=== PATIENT | female | born 1970 | race Caucasian/White ===

== ENCOUNTER 2020-02-24 19:03 | Emergency (ER) | payer SELFPAY ==
[2020-02-24 19:08] VITALS: BP 150/83; PULSE 86; RESP 18; TEMP 36.9; O2SAT 95; BMI 44.6
--- NOTE | 2020-02-24 19:34 | W.ED.BACK ---
HPI - Back Pain/Injury General: Chief Complaint: Back Pain/Injury Stated Complaint: fall Time Seen by Provider: 02/24/20 19:21 Source: patient Mode of arrival: ambulatory Limitations: no limitations History of Present Illness: HPI Narrative: Patient is a 49-year-old female who presents to the ER today with complaints of worsening lower back pain. Patient tells me she has had chronic lower back pain over the past 4 months. She has been seen by her PCP Dai Stark PA-C. Patient tells me over the past 4 days she has had even worse lower back pain. She does chronically have radiation down into her right lower extremity that she states starts in her right back and radiates down the posterior aspect of her right leg. She tells me she does have chronic tingling and numbness to the leg. Patient states over the past 4 days she has had trouble with ambulation due to pain. She denies saddle anesthesia, urinary retention or bowel incontinence. Patient has been treating back pain with Flexeril and gabapentin without relief. MD elicited complaint: back pain Onset (ago): month(s) Timing: constant Severity: severe Similar Symptoms Previously: Yes Location: lumbar spine Radiation: right upper leg and right leg below the knee Exacerbating factors: movement and walking Relieving factors: none Associated symptoms: Reports tingling/numbness/burning (R LE); Deny abdominal pain, chills, dysuria, fatigue, fever(s) or urinary urgency Review of Systems General: Reports: 10 or more systems reviewed and unremarkable except in HPI and below Const: Denies: fever(s), chills, fatigue or malaise Card: Denies: chest pain Resp: Denies: dyspnea GI: Denies: abdominal pain : Denies: flank pain, difficulty voiding, dysuria, urinary frequency, urinary urgency, urinary hesitancy, dribbling or urinary incontinence Musc: Reports: back pain; Denies: neck pain, extremity swelling, joint pain, joint swelling, joint redness or joint warmth Neuro: Reports: numbness in extremities (R LE), weakness in extremities (R LE) and sensory changes; Denies: headache(s) PFSH ED PFSH: Social History Smoking and tobacco status: current every day smoker Female Reproductive History: Date of last menstrual period: 01/02/20 Physical Exam Const: COMMON NORMALS: no acute distress, patient oriented x3, no limitations and alert NUTRITIONAL APPEARANCE: obese morbidly obese ORIENTATION/CONSCIOUSNESS: Yes oriented to person, Yes oriented to place and Yes oriented to time HENMT: COMMON NORMALS: normocephalic and atraumatic HEAD & SCALP: normocephalic and atraumatic Resp: COMMON NORMALS: normal respiratory effort and clear to auscultation bilaterally AUSCULTATION: clear to auscultation bilaterally Cardio: COMMON NORMALS: regular rate and regular rhythm RATE: regular rate RHYTHM: regular rhythm : COMMON NORMALS: Yes no CVA tenderness BLADDER/KIDNEY EXAM: Yes no CVA tenderness Back/Pelvis: COMMON NORMALS: no CVA tenderness THORACIC SPINE/UPPER BACK: Yes normal to inspection, No thoracic spinal tenderness and No paraspinal muscle tenderness LUMBAR SPINE/LOWER BACK: Yes lumbar spinal tenderness (mid to lower L spine) and Yes paraspinal muscle tenderness (throughout/across lower back) SACROILIAC JOINTS: Yes SI joint(s) abnormal (TTP R SI) Extremity: COMMON NORMALS: normal to inspection and full ROM Neuro: COMMON NORMALS: patient oriented x3, moves all extremities and no sensory deficits noted SENSORIUM/ORIENTATION: Yes alert, Yes oriented to person, Yes oriented to place and Yes oriented to time GAIT: Yes Unable to assess gait MOTOR EXAM: Abnormal motor strength present (see below) OTHER: pt refused to move from her wheelchair stating she was more comfortable here so exam/strength testing was not ideal; she has decreased strength when compared to L of hip flexion and knee flexion/extension; normal pushes/pulls of feet; sensory does appear intact; DP/PT pulses and cap refill normal Course ED course: given pts sensory complaints, new motor complaints, difficulty with ambulation, and CT findings of two lumbar masses she will most likely need to undergo MRI tonight; I have spoken to Dr. Masters who agrees Consultations: Consultation #1: Dr. Masters-recommends MRI w/ and w/o contrast; spoke with him again following findings and he will see patient in his office today Vital Signs: Vital signs: Vital Signs Temperature 98.4 F 02/24/20 19:08 Pulse Rate 99 02/25/20 00:01 Respiratory Rate 19 H 02/25/20 00:01 Blood Pressure 152/111 02/25/20 00:01 Pulse Oximetry 99 02/25/20 00:01 MDM - Back Pain/Injury Imaging Data^: CT lumbar: Radiologist's impression: [address] [place] [address] CT Scan Report Signed Patient: Selena Decker Unit #: [id number] : 1970 Age/Sex: 49 / F ADM Date: 02/24/20 Loc: ER Room/Bed: Attending Dr: Ordering Provider/Ordering MD: Maddison Ramirez Date of Service: 02/24/20 Procedure(s): CT lumbar spine wo con* [id number] Accession Number(s): [id number] Report Number: [id number] PROCEDURE INFORMATION: Exam: CT Lumbar Spine Without Contrast Exam date and time: 02/24/2020 7:35 PM Age: 49 years old Clinical indication: Low back pain; Additional info: Back pain; R le weakness/numbness TECHNIQUE: Imaging protocol: Computed tomography images of the lumbar spine without contrast. Radiation optimization: All CT scans at this facility use at least one of these dose optimization techniques: automated exposure control; mA and/or kV adjustment per patient size (includes targeted exams where dose is matched to clinical indication); or iterative reconstruction. COMPARISON: No relevant prior studies available. RADIATION DOSE METRICS: Total DLP (mGy-cm): 2641.76 FINDINGS: Vertebrae: No acute fracture. Normal alignment. L1-L2: No significant disc protrusion. No severe spinal canal stenosis. No significant neural foraminal narrowing. L2-L3: No significant disc protrusion. No spinal canal stenosis. No neural foraminal narrowing. L3-L4: There is mild decreased height of the L3-L4 disc with degenerative hypertrophic changes in the facet joints bilaterally and mild hypertrophy of ligamentum flavum causing moderate central canal stenosis narrowing the sagittal diameter of the canal to approximately 8 mm. L4-L5: There is decreased height of the L4-L5 disc with mild diffuse posterior bulging of the disc and degenerative changes in the facet joints bilaterally as well as hypertrophy of ligamentum flavum. There is a 7 mm sized calcified mass in the right side of the spinal canal adjacent to the right facet joint at the L5 level, below the L4-L5 disc, possibly a calcified ganglion cyst or perhaps sequestered disc fragment. Just below this there is a 7 x 16 mm mass in the right side of the spinal canal of similar appearance and differential. This causes severe stenosis at this level and displaces the thecal sac towards the left. Further evaluation with MRI is suggested. L5-S1: There is decreased height of the L5-S1 disc without focal disc herniation or stenosis. There is mild foraminal narrowing bilaterally. Soft tissues: Unremarkable. CT/CT lumbar spine wo con* [id number] IMPRESSION: 1. Moderate spinal stenosis at L3-L4. 2. Intraspinal mass at the L5 level, possibly calcified ganglion cyst or sequestered disc fragment. Further evaluation with MRI is suggested. Radiation Dose CTDIVOL = (mGy): DLP = 2641.76 (mGy-cm) Dictated By: Clovis Guillen Signed By: Clovis Guillen Signed Date/Time: 02/24/202020 DD/ 18 MRI lumbar spine w/ and w/o: Radiologist's impression: [place] [address] Magnetic Resonance Report Signed Patient: Selena Decker Unit #: [id number] : 1970 Age/Sex: 49 / F ADM Date: 02/24/20 Loc: ER Room/Bed: Attending Dr: Ordering Provider/Ordering MD: Maddison Ramirez Date of Service: 02/24/20 Procedure(s): MR lumbar spine wo/w con [id number] Accession Number(s): [id number] Report Number: [id number] PROCEDURE INFORMATION: Exam: MR Lumbar Spine Without and With Contrast. Exam date and time: 02/24/2020 10:11 PM Age: 49 years old Clinical indication: Low back pain; Additional info: Lumbar mass TECHNIQUE: Imaging protocol: Multiplanar magnetic resonance images of the lumbar spine without and with intravenous contrast. Contrast material: PROHANCE; Contrast volume: 17 ml; Contrast route: INTRAVENOUS (IV); COMPARISON: CT lumbar spine wo con* [id number] 02/24/2020 7:37 PM FINDINGS: Vertebrae: Unremarkable. Spinal cord: Normal signal. No cord compression. L1-L2: No significant disc disease. No significant spinal canal stenosis. No neural foraminal stenosis. L2-L3: There is some degenerative change in the facet joints bilaterally with medial spur formation but no significant central canal stenosis. There is no disc herniation. L3-L4: There is mild diffuse posterior bulging of the disc. There is hypertrophy of ligamentum flavum and medial spurring from the facet joints bilaterally causing mild central canal stenosis narrowing the sagittal diameter of the canal to approximately 9 mm. No focal disc herniation is identified. L4-L5: There is mild decrease in signal in the disc. There is mild posterior bulging of the disc. There is severe degenerative changes in the facet joints bilaterally with hypertrophy of ligamentum flavum and medial spur formation which causes severe stenosis at the disc level effacing the CSF space and narrowing the transverse diameter of the sac to approximately 7 mm. There is a large synovial cyst below the disc level occupying the right side of the canal at the L5 level. This cyst measures approximately 8 x 17 mm and displaces the thecal sac towards the left and causes severe stenosis. Postcontrast images show some surrounding enhancement. L5-S1: No significant disc disease. No significant spinal canal stenosis. No neural foraminal stenosis. Soft tissues: Unremarkable. MR/MR lumbar spine wo/w con [id number] IMPRESSION: There is a large synovial cyst on the right side at L4-L5 causing severe spinal stenosis. Surgical consultation is suggested. Dictated By: Clovis Guillen Signed By: Clovis Guillen Signed Date/Time: 02/24/202356 DD/ 55 Discharge Plan Discharge Patient Disposition: Home, Self-Care Clinical Impression: Synovial cyst of lumbar spine Condition: Stable Prescriptions: New tramadol 50 mg tablet 50 mg PO Q6H PRN (Reason: pain) Qty: 14 RF: 0 No Action cyclobenzaprine 10 mg tablet 10 mg PO TID PRN (Reason: Muscle Spasm) RF: 0 Aspir-81 81 mg Tablet,Delayed Release (Dr/Ec) 81 mg PO DAILY RF: 0 isosorbide mononitrate 60 mg tablet extended release 24 hr 60 mg PO DAILY RF: 0 propranolol 10 mg tablet 10 mg PO BID RF: 0 cyanocobalamin (vitamin B-12) 1,000 mcg/mL solution 1,000 mcg IM Q30D RF: 0 Aleve 220 mg Tablet 880 mg PO PRN RF: 0 nitroglycerin 0.4 mg tablet, sublingual 0.4 mg sublingual PRN RF: 0 gabapentin 300 mg capsule 300 mg PO TID RF: 0 lisinopril-hydrochlorothiazide 20-25 mg tablet 1 tab PO DAILY RF: 0 ProAir HFA 90 mcg/actuation HFA aerosol inhaler 2 puff INHALATION Q4H PRN (Reason: Shortness Of Breath) RF: 0 Claritin 10 mg Tablet 10 mg PO DAILY RF: 0 Nexium 24HR 20 mg Capsule,Delayed Release(Dr/Ec) 20 mg PO DAILY PRN (Reason: unknown) RF: 0 CoQ-10 1 tab PO DAILY RF: 0 Discharge Orders: Discharge Order (Routine); Ordered 02/25/20 Ordered By: Maddison Ramirez Referrals: Tank Masters MD [Physician] - Dai Stark PA [Primary Care Provider] - Activity Restrictions/Additional Instructions: CONTACT DR. MASTERS'S OFFICE EARLY THIS MORNING. HE HAS REQUESTED THAT THEY SEE YOU TODAY. IF YOU CANNOT GET AN APPOINTMENT BY CALLING THEN CONTACT CASE MANAGEMENT HERE IN THE ED AND THEY CAN ASSIST. Coding Level of Care Code ED Embryology Teacher for Chg Fwd Exam Comprehensive
[2020-02-24] MEDS: dexamethasone 10 mg/mL INJ IM (19:51)
[2020-02-24] MEDS: ketorolac 60 mg/2 mL INJ IM (19:53)
[2020-02-24] MEDS: orphenadrine 30 mg/mL Inj 2 mL 60 MG IM (19:53)
[2020-02-24 20:28] VITALS: BP 159/100; PULSE 82; RESP 18
--- NOTE | 2020-02-24 21:41 | MRR_ITS ---
PROCEDURE INFORMATION: Exam: MR Lumbar Spine Without and With Contrast. Exam date and time: 02/24/2020 10:11 PM Age: 49 years old Clinical indication: Low back pain; Additional info: Lumbar mass TECHNIQUE: Imaging protocol: Multiplanar magnetic resonance images of the lumbar spine without and with intravenous contrast. Contrast material: PROHANCE; Contrast volume: 17 ml; Contrast route: INTRAVENOUS (IV); COMPARISON: CT lumbar spine wo con* [id number] 02/24/2020 7:37 PM FINDINGS: Vertebrae: Unremarkable. Spinal cord: Normal signal. No cord compression. L1-L2: No significant disc disease. No significant spinal canal stenosis. No neural foraminal stenosis. L2-L3: There is some degenerative change in the facet joints bilaterally with medial spur formation but no significant central canal stenosis. There is no disc herniation. L3-L4: There is mild diffuse posterior bulging of the disc. There is hypertrophy of ligamentum flavum and medial spurring from the facet joints bilaterally causing mild central canal stenosis narrowing the sagittal diameter of the canal to approximately 9 mm. No focal disc herniation is identified. L4-L5: There is mild decrease in signal in the disc. There is mild posterior bulging of the disc. There is severe degenerative changes in the facet joints bilaterally with hypertrophy of ligamentum flavum and medial spur formation which causes severe stenosis at the disc level effacing the CSF space and narrowing the transverse diameter of the sac to approximately 7 mm. There is a large synovial cyst below the disc level occupying the right side of the canal at the L5 level. This cyst measures approximately 8 x 17 mm and displaces the thecal sac towards the left and causes severe stenosis. Postcontrast images show some surrounding enhancement. L5-S1: No significant disc disease. No significant spinal canal stenosis. No neural foraminal stenosis. Soft tissues: Unremarkable. MR/MR lumbar spine wo/w con [id number] IMPRESSION: There is a large synovial cyst on the right side at L4-L5 causing severe spinal stenosis. Surgical consultation is suggested.
[2020-02-24] MEDS: LORazepam 2 mg/mL INJ 1 mL IVP (23:28)
--- NOTE | 2020-02-24 23:29 | PC.NURSE ---
Pt. to MRI and back, via EMS, with this screenplay writer. Ativan IVP given at MRI prior to procedure. Pt, tolerated well.
[2020-02-25 00:01] VITALS: BP 152/111; PULSE 99; RESP 19; O2SAT 99
[2020-02-25] MEDS: TRAMadol 50 mg Tablet 100 MG PO (01:44)
[2020-02-25 01:45] VITALS: BP 138/74; PULSE 98; RESP 18; TEMP 37.1; O2SAT 98
--- NOTE | 2020-02-25 12:13 | DCPLANNER ---
manager neonatal had message to schedule a follow up appointment for patient with Dr. Beckett. manager neonatal called [facility], spoke with Titi, a follow up appointment is scheduled for February 25, 2020 at 3:30. manager neonatal was told that patient is aware of appointment.
--- NOTE | 2020-02-26 13:59 | DCPLANNER ---
Patient had an appointment scheduled for 02.25.[address] Dooley office. Patient did attend the appointment.
== END 2020-02-25 01:47 | disposition home or self-care (01) ==
PROVIDERS: Emergency Provider Physician Assistant; PCP Physician Assistant
DX: M71.38 Other bursal cyst, other site (principal); Z79.82 Long term (current) use of aspirin; F17.210 Nicotine dependence, cigarettes, uncomplicated
CPT/HCPCS: 12345; 72131; 72158; 96372; 96374; 96375; 99283; A9579; J1100; J1885; J2060; J2360

== ENCOUNTER 2020-09-07 16:48 | Inpatient (IN) | payer MEDICAID, SELFPAY ==
[2020-09-07 17:14] VITALS: BP 154/79; PULSE 89; RESP 18; TEMP 36.9; O2SAT 97; BMI 41.1
--- NOTE | 2020-09-07 17:51 | ED_ITS ---
HPI - Psych General: Chief Complaint: Psychiatric Symptoms Stated Complaint: AMS, SUICIDAL THOUGHTS Time Seen by Provider: 09/07/20 17:51 History of Present Illness: HPI Narrative: Patient comes in with history of bipolar and with deep depression over the last month. Patient says she has held a gun to her head multiple times this past month and that she had her daughter come pick her got up today from her because she is thought she for sure she is going to shoot herself. She went to [facility] here. MD complaint: suicidal ideation and feels depressed Onset (ago): month(s) Duration: changing over time History of same: Yes Relieving factors: none Exacerbating factors: none Associated psychiatric symptoms: depression, suicidal ideation and racing thoughts Associated symptoms: Reports depression and suicidal ideation Treatments prior to arrival: other (Was seen at [facility]) If self harm: admits thoughts of self harm and has plan Review of Systems Const: Denies: fever(s), chills or body aches Eyes: Denies: change in vision or blurry vision ENMT: Denies: throat pain or nasal congestion Card: Denies: chest pain or dyspnea on exertion Resp: Denies: dyspnea, productive cough or non-productive cough GI: Denies: abdominal pain, nausea or vomiting Musc: Denies: extremity pain Skin/Breast: Denies: rash Neuro: Denies: headache(s) Psych: Reports: depression and suicidal ideation; Denies: anxiety Hilario/Lymph: Denies: easy bruising PFS ED PFSH: Medical History (Updated 03/04/20 @ 00:00 by ) Lumbar stenosis with neurogenic claudication Morbid obesity with BMI of 45.0-49.9, adult Spinal stenosis of lumbar region with radiculopathy Spondylolisthesis, lumbar region Synovial cyst of lumbar spine Surgical History History of cholecystectomy History of tubal ligation Family History Mother Diabetes Father Diabetes Denies family history of Dementia Cancer Social History (Updated 02/27/20 @ 09:15 by Emy Downs LPN) Smoking and tobacco status: current every day smoker Alcohol intake: never Housing: House service: No Current occupational status: employed 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 Physical Exam Const: COMMON NORMALS: no acute distress, average body habitus and patient oriented x3 HENMT: COMMON NORMALS: normocephalic HEAD & SCALP: normal to inspection and normocephalic FACE & SINUS: normal facial exam Eye: COMMON NORMALS: conjunctivae normal GENERAL EYE: appearance normal, both eyes and all related structures CONJUNCTIVA: Yes conjunctivae normal Neck/C-Spine: COMMON NORMALS: no JVD Chest: COMMONS NORMALS: normal inspection of the chest Resp: COMMON NORMALS: normal respiratory effort and clear to auscultation bilaterally AUSCULTATION: clear to auscultation bilaterally Cardio: COMMON NORMALS: no JVD, regular rate and regular rhythm RATE: regular rate RHYTHM: regular rhythm GI: COMMON NORMALS: Normal to inspection, nondistended, normoactive bowel sounds present Back/Pelvis: OTHER: Patient ambulates with walker ambulate slowly due to history of possible mass on her back. Extremity: COMMON NORMALS: normal to inspection and full ROM Neuro: COMMON NORMALS: patient oriented x3 Discharge Plan Discharge Prescriptions: No Action methylprednisolone [Medrol (Arnaldo)] 4 mg tablets,dose pack See Rx Instructions PO PER PKG DIR Qty: 21 RF: 0 cyclobenzaprine 10 mg tablet 10 mg PO TID PRN (Reason: Muscle Spasm) RF: 0 Aspir-81 81 mg Tablet,Delayed Release (Dr/Ec) 81 mg PO DAILY RF: 0 isosorbide mononitrate 60 mg tablet extended release 24 hr 60 mg PO DAILY RF: 0 propranolol 10 mg tablet 10 mg PO BID RF: 0 cyanocobalamin (vitamin B-12) 1,000 mcg/mL solution 1,000 mcg IM Q30D RF: 0 Aleve 220 mg Tablet 880 mg PO PRN RF: 0 nitroglycerin 0.4 mg tablet, sublingual 0.4 mg sublingual PRN RF: 0 gabapentin 300 mg capsule 300 mg PO TID RF: 0 lisinopril-hydrochlorothiazide 20-25 mg tablet 1 tab PO DAILY RF: 0 ProAir HFA 90 mcg/actuation HFA aerosol inhaler 2 puff INHALATION Q4H PRN (Reason: Shortness Of Breath) RF: 0 Claritin 10 mg Tablet 10 mg PO DAILY RF: 0 Nexium 24HR 20 mg Capsule,Delayed Release(Dr/Ec) 20 mg PO DAILY PRN (Reason: unknown) RF: 0 CoQ-10 1 tab PO DAILY RF: 0 tramadol 50 mg tablet 50 mg PO Q6H PRN (Reason: pain) Qty: 14 RF: 0 Coding Level of Care Code ED Nursing Program Manager for Alfredo Al
[2020-09-07 18:03] LABS: Add Urine Microscopic? NO
[2020-09-07 18:07] LABS: Basophils # 0.1 10^3/uL (0.0-0.1); Basophils % 0.5 %; Eosinophils # 0.2 10^3/uL (0.0-0.8); Eosinophils % 2.4 %; Hematocrit 43.2 % (37.0-47.0); Hemoglobin 14.2 g/dL (11.5-15.3); Lymphocytes % 31.1 %; Mean Corpuscular HGB Conc 32.9 g/dL (30.0-36.0); Mean Corpuscular Hemoglobin 29.2 pg (28.0-34.0); Mean Corpuscular Volume 88.7 fL (81-99); Monocytes # 0.6 10^3/uL (0.2-0.9); Monocytes % 6.1 %; Neutrophils # 5.82 10^3/uL (1.8-7.7); Neutrophils % 59.6 %; Nucleated Red Blood Cells % 0 %; Platelet Count 397 10^3/cmm (130-400); Red Blood Count 4.87 10^6/uL (4.1-5.3); White Blood Count 9.8 10^3/uL (4.0-10.0)
[2020-09-07 18:21] LABS: Bilirubin Urine Neg (Negative); Blood Urine Neg (Negative); Glucose Urine UA Norm (Normal); Ketones Urine Negative (Negative); Leukocyte Esterase Urine Negative (Negative); Nitrate Urine Negative (Negative); Protein Urine Neg (Negative); Specific Gravity, Urine 1.015 (1.005-1.030); Urine Appearance Clear (CLEAR); Urine Color Yellow (Yellow); Urobilinogen Urine Norm (Negative); pH Urine 5 (5-7)
[2020-09-07 18:27] LABS: Amphetamines Screen Urine Negative (Negative); Barbiturates Screen Urine Negative (Negative); Benzodiazepines Screen Urine Negative (Negative); Cocaine Screen Urine Negative (Negative); Opiate Screen Urine Negative (Negative); PCP Screen Urine Negative (Negative); THC Screen Urine Negative (Negative)
[2020-09-07 18:30] LABS: HCG Qualitative Urine. Negative (Negative)
[2020-09-07 18:43] LABS: Anion Gap 11.3 (5-19); Blood Urea Nitrogen 14 mg/dL (6-20); Calcium 8.6 mg/dL (8.5-10.5); Carbon Dioxide 28 mmol/L (22-29); Chloride 102 mmol/L (98-107); Glucose 125 mg/dL (65-115); Osmolality Calculated 288 mOsm/kg (285-295); Potassium 3.3 mmol/L (3.5-5.1); Salicylate 0.5 mg/dL (3-10); Sodium 138 mmol/L (136-145)
[2020-09-07 18:45] LABS: Acetaminophen < 5.0 ug/mL (10-30); Alcohol Level < 10 mg/dL (0-10)
[2020-09-07 19:23] VITALS: BP 134/82; PULSE 76; RESP 14; O2SAT 96
[2020-09-07] MEDS: hyDROXYzine 25 mg Capsule 50 MG PO (21:26)
[2020-09-07 22:00] VITALS: BP 151/87; PULSE 91; RESP 20; TEMP 36.9; O2SAT 94
[2020-09-07] MEDS: TRAMadol 50 mg Tablet PO (23:53)
[2020-09-07] MEDS: nicotine 2 mg Gum BUCCAL (23:53)
[2020-09-07] MEDS: gabapentin 300 mg Capsule PO (23:56)
[2020-09-07] MEDS: isosorbide mononitrate ER 60 mg Tablet PO (23:56)
[2020-09-07] MEDS: cyanocobalamin 1,000 mcg/mL SDV 1000 MCG IM (23:57)
[2020-09-08] MEDS: methocarbamol 750 mg Tablet PO ×4 (01:28→22:00)
[2020-09-08 06:00] VITALS: BP 128/72; PULSE 86; RESP 18; TEMP 36.9; O2SAT 96
[2020-09-08] MEDS: propranolol 20 mg Tablet 10 MG PO ×2 (07:56→17:18)
[2020-09-08] MEDS: hydroCHLOROthiazide 25 mg Tablet PO (07:56)
[2020-09-08] MEDS: loratadine 10 mg Tablet PO (07:56)
[2020-09-08] MEDS: gabapentin 300 mg Capsule PO ×3 (07:56→22:01)
[2020-09-08] MEDS: aspirin 81 mg EC Tablet PO (07:56)
[2020-09-08] MEDS: lisinopril 20 mg Tablet PO (07:56)
[2020-09-08] MEDS: nicotine 21 mg Patch 1 PATCH TRANSDERMA (08:00)
--- NOTE | 2020-09-08 10:07 | PC.RESP ---
Smoking Cessation information sent to patient.
[2020-09-08] MEDS: albuterol 8 gm MDI 2 PUFF INHALATION ×2 (13:51→21:45)
[2020-09-08 13:55] VITALS: PULSE 92; RESP 18; O2SAT 97
[2020-09-08 14:00] VITALS: BP 115/73; PULSE 80; RESP 20; TEMP 37.4; O2SAT 94
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
[2020-09-08 20:11] VITALS: BP 119/74; PULSE 78; RESP 17; TEMP 37.2; O2SAT 94
[2020-09-08 21:45] VITALS: PULSE 78; RESP 16; O2SAT 94
[2020-09-08] MEDS: hyDROXYzine 25 mg Capsule 50 MG PO (22:00)
[2020-09-08] MEDS: naproxen 500 mg Tablet PO (22:00)
[2020-09-08] MEDS: lamoTRIgine 25 mg Tablet PO (22:01)
[2020-09-08] MEDS: cyclobenzaprine 10 mg Tablet PO (22:01)
[2020-09-08] MEDS: TRAMadol 50 mg Tablet PO (22:01)
[2020-09-08] MEDS: isosorbide mononitrate ER 60 mg Tablet PO (22:06)
[2020-09-09] MEDS: nicotine 2 mg Gum BUCCAL ×3 (01:35→21:45)
--- NOTE | 2020-09-09 01:58 | PHA.FALL ---
A Pharmacy Consult Was Conducted For Selena Dceker Due To: Babin Fall Scale Risk Level: High Fall Risk On 09/08/20 20:00 And A Medication Fall Risk Score Greater Than 10. The Recommendations Are As Follows:My greatest concern for this patient is the combination of haldol, lamictal, and lisinopril. Each of these can cause orthostatic hypotension and it can be severe with lisinopril. This is not a recommendation to discontinue any of these drugs but rather to closely monitor. I would want to educate the patient as to being careful when arising from the seated position and especially when getting out of bed. It would be hayward to rise slowly, then sit on the edge of the bed for a short time, then carefully rise to the standing position. Thank you for the consult request, TEREZA Roberts, 09/09/2020.
--- NOTE | 2020-09-09 03:43 | PC.NURSE ---
2100 Rob patch removed
[2020-09-09 06:00] VITALS: BP 121/71; PULSE 66; RESP 17; TEMP 36.7; O2SAT 93
[2020-09-09] MEDS: propranolol 20 mg Tablet 10 MG PO ×2 (08:56→16:56)
[2020-09-09] MEDS: gabapentin 300 mg Capsule PO ×3 (08:57→21:44)
[2020-09-09] MEDS: hydroCHLOROthiazide 25 mg Tablet PO (08:57)
[2020-09-09] MEDS: methocarbamol 750 mg Tablet PO ×3 (08:57→21:45)
[2020-09-09] MEDS: lisinopril 20 mg Tablet PO (08:57)
[2020-09-09] MEDS: loratadine 10 mg Tablet PO (08:57)
[2020-09-09] MEDS: aspirin 81 mg EC Tablet PO (08:57)
[2020-09-09] MEDS: lamoTRIgine 25 mg Tablet PO (08:58)
[2020-09-09] MEDS: nicotine 21 mg Patch 1 PATCH TRANSDERMA (08:59)
[2020-09-09] MEDS: naproxen 500 mg Tablet PO ×2 (08:59→21:44)
[2020-09-09 14:00] VITALS: BP 127/86; PULSE 86; RESP 16; TEMP 37.1; O2SAT 94
--- NOTE | 2020-09-09 18:52 | P.PN_ITS ---
Mental Status Exam MSE Comments: This is an obese grooming and eye contact. No abnormal movements except for mild psychomotor retardation. Cooperative with exam in mild distress. Speech was more normal rate and volume. Mood described as a little better, affect less subdued. Thought process organized. Thought con tent: Patient denied any suicidal or homicidal ideations, there were no delusions reported or noted, she denied any auditory or visual hallucinations. Attention and concentration appeared intact and memory appeared mostly reliable but none were formally tested. She is alert and oriented x3. Insight and judgment are limited and impulse control is limited. Vitals/I&O/Wt Last Vital Signs Temp 98.1 F 09/09/20 20:08 Pulse 80 09/09/20 20:08 Resp 20 H 09/09/20 20:08 BP 133/90 09/09/20 20:08 Pulse Ox 99 09/09/20 20:08 Data NPU : 09/07/20 17:50 09/07/20 17:50 A&P Additional A&P Information (1) Spinal stenosis of lumbar region with radiculopathy: (2) Spondylolisthesis, lumbar region: (3) Instability of joint: (4) Morbid obesity with BMI of 45.0-49.9, adult: (5) Lumbar stenosis with neurogenic claudication: (6) Adjustment disorder with mixed disturbance of emotions and conduct: (7) Parent-child relational problem: (8) Mood disorder: (9) Depression: Additional A&P Information This is a 49-year-old white female with a long history of mental health, trauma and addiction with recent significant/social challenges as well as challenges to her recovery through her current living circumstances who presents open to medication changes. 1. Continue current medication. Start lexapro 10 mg po qam. 2. Continue every 15 minute checks for safety. 3. Encourage individual, group and milieu therapy. 4. Encourage sober living treatment after discharge at the highest level of care to which she is willing to commit. 5. Plan discharge to SOC tomorrow. Involuntary Hold Information 96 Hour Hold: 96 Hour Involuntary Admission: No Attestations NPU Medical Necessity Statement*: Inpatient hospitalization is medically necessary and the clinically improved intervention at this time. We will monitor medications and make changes as indicated. Likely length of stay 1-3 days. Coding Level of Care Code Acute Special Education Paraprofessional for Alfredo Al
[2020-09-09 19:32] VITALS: PULSE 82; RESP 16; O2SAT 96
[2020-09-09 20:08] VITALS: BP 133/90; PULSE 80; RESP 20; TEMP 36.7; O2SAT 99
[2020-09-09] MEDS: cyclobenzaprine 10 mg Tablet PO (21:43)
[2020-09-09] MEDS: isosorbide mononitrate ER 60 mg Tablet PO (21:45)
[2020-09-10 06:00] VITALS: BP 121/74; PULSE 87; RESP 18; TEMP 36.9; O2SAT 96
[2020-09-10] MEDS: nicotine 2 mg Gum BUCCAL ×3 (06:47→10:22)
[2020-09-10] MEDS: propranolol 20 mg Tablet 10 MG PO (07:55)
[2020-09-10] MEDS: loratadine 10 mg Tablet PO (07:55)
[2020-09-10] MEDS: aspirin 81 mg EC Tablet PO (07:55)
[2020-09-10] MEDS: hydroCHLOROthiazide 25 mg Tablet PO (07:56)
[2020-09-10] MEDS: naproxen 500 mg Tablet PO (07:56)
[2020-09-10] MEDS: gabapentin 300 mg Capsule PO (07:57)
[2020-09-10] MEDS: lisinopril 20 mg Tablet PO (07:57)
[2020-09-10] MEDS: methocarbamol 750 mg Tablet PO (07:58)
[2020-09-10] MEDS: lamoTRIgine 25 mg Tablet PO (07:58)
[2020-09-10] MEDS: escitalopram 10 mg Tablet PO (07:58)
[2020-09-10 09:44] VITALS: BP 121/74; PULSE 87; RESP 18; TEMP 36.9; O2SAT 96
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
== END 2020-09-10 11:56 | disposition home or self-care (01) | DRG 882 ==
LOC: ER 18:42 → NP 18:47
PROVIDERS: Nurse Practitioner Family; Admitting Provider Psychiatry & Neurology Psychiatry; Emergency Provider Nurse Practitioner Family; PCP Physician Assistant; Visit Provider Psychiatry & Neurology Psychiatry
DX: F43.25 Adjustment disorder with mixed disturbance of emotions and conduct (principal); R45.851 Suicidal ideations; Z68.42 Body mass index [BMI] 45.0-49.9, adult; F31.9 Bipolar disorder, unspecified; Z81.8 Family history of other mental and behavioral disorders; E66.01 Morbid (severe) obesity due to excess calories; M48.062 Spinal stenosis, lumbar region with neurogenic claudication; M54.16 Radiculopathy, lumbar region; F17.210 Nicotine dependence, cigarettes, uncomplicated; M53.2X9 Spinal instabilities, site unspecified; Z62.820 Parent-biological child conflict
CPT/HCPCS: 12345; 80048; 80306; 80307; 81003; 81025; 85025; 94640; 96372; 99284; J3420; J3535

== ENCOUNTER → 2020-09-16 09:06 | Outpatient (BNVA) | payer MEDICAID, SELFPAY | PROVIDERS: PCP Physician Assistant; Visit Provider Orthopaedic Surgery | DX: M48.062 Spinal stenosis, lumbar region with neurogenic claudication (principal) | CPT/HCPCS: 72114 ==

== ENCOUNTER 2020-09-24 13:06 | Outpatient (CLI) | payer MEDICAID, SELFPAY ==
--- NOTE | 2020-09-24 13:45 | MR_ITS ---
WS: [id number] MRI LUMBAR SPINE NONCONTRAST HISTORY: M48.062 - Spinal stenosis, lumbar region with neurogenic claudication COMPARISON: 02/24/2020 TECHNIQUE: Sagittal and axial multisequence imaging is submitted. Normal cervical lordosis. Contact on the ventral cervical cord at C6 may be due to retropulsion of ol d fracture. Mild increase in the lumbar lordosis. Less than 2 mm anterolisthesis of L4. Mild disc desiccation. No significant narrowing. Postoperative changes are noted in the soft tissues the L4-5 level. There is a fluid collection in the paraspinal soft tissues from L3 to S1 which is lik basil postoperative seroma. Conus terminates normally at L1. L1-L2: Mild bilateral foraminal narrowing. No central stenosis. L2-L3: Moderate facet and ligamentum flavum hypertrophy. There is mild bilateral foraminal narrowing. L3-L4: Moderate ligamentum flavum disease and facet arthritis. Encroaching into the thecal sac. There is at least moderate bilateral foraminal stenosis and mild central stenosis. L4-L5: Increase fluid in the facet joints bilaterally. Moderate ligamentum flavum hypertrophy and fac et arthritis. Previously described large facet joint cyst has been removed. Trefoil appearance of the thecal sac with mild clumping of the nerve roots. Mild to moderate bilateral foraminal stenosis. L5-S1: Mild annular disc bulging. Mild osteophytic ridging with moderate bilateral foraminal stenosis . Increase fluid in the facet joints. No retroperitoneal abnormality. MR/MR lumbar spine wo con* [id number] IMPRESSION: 1. Postoperative changes at the L4-5 level. Removal of the previously describe d complex facet joint cyst. 2. Mild central and moderate bilateral foraminal stenosis at L3-4 as described above. 3. Mild to moderate bilateral foraminal stenosis at the L4-5 level with arachn oiditis. 4. Increase fluid in the facet joints of L4-5 with mild widening. 5. Moderate bilateral foraminal stenosis at L5-S1. 6. Paraspinal postoperative seroma.
== END 2020-09-24 13:07 | disposition home or self-care (01) ==
LOC: RADSHAW 13:09
PROVIDERS: PCP Physician Assistant; Visit Provider Orthopaedic Surgery
DX: M48.062 Spinal stenosis, lumbar region with neurogenic claudication (principal); M48.07 Spinal stenosis, lumbosacral region
CPT/HCPCS: 72148

== ENCOUNTER → 2020-10-26 11:37 | Outpatient (BNVA) | payer MEDICAID, SELFPAY | PROVIDERS: PCP Physician Assistant; Visit Provider Orthopaedic Surgery | DX: Z20.822 Contact with and (suspected) exposure to COVID-19 (principal) | CPT/HCPCS: 87635 ==

== ENCOUNTER 2020-10-28 18:11 | Outpatient (CLI) | payer MEDICAID, SELFPAY ==
[2020-10-28 19:02] LABS: Basophils % 0.3 %; Eosinophils # 0.3 10^3/uL (0.0-0.8); Eosinophils % 2.9 %; Hematocrit 46.6 % (37.0-47.0); Hemoglobin 15.3 g/dL (11.5-15.3); Lymphocytes # 3.2 10^3/uL (0.8-4.8); Lymphocytes % 29.8 %; Mean Corpuscular HGB Conc 32.8 g/dL (30.0-36.0); Mean Corpuscular Hemoglobin 29.8 pg (28.0-34.0); Mean Corpuscular Volume 90.7 fL (81-99); Mean Platelet Volume 9.3 fL (7.4-10.4); Monocytes # 0.8 10^3/uL (0.2-0.9); Monocytes % 7.5 %; Neutrophils # 6.31 10^3/uL (1.8-7.7); Neutrophils % 59.2 %; Nucleated Red Blood Cells % 0 %; Platelet Count 388 10^3/cmm (130-400); Red Blood Count 5.14 10^6/uL (4.1-5.3); Red Cell Distribution Width 13.2 % (12.1-15.1); White Blood Count 10.7 10^3/uL (4.0-10.0)
[2020-10-28 19:36] LABS: Alanine Aminotransferase 15 U/L (0-33); Alkaline Phosphatase 101 IU/L (35-105); Anion Gap 14.9 (5-19); Aspartate Amino Transferase 15 U/L (0-32); Blood Urea Nitrogen 16 mg/dL (6-20); Calcium 9.4 mg/dL (8.5-10.5); Carbon Dioxide 29 mmol/L (22-29); Chloride 95 mmol/L (98-107); Globulin 3.7 g/dL (1.3-4.6); Glomerular Filtration Rate 47.4 mL/min (90-130); Glucose 87 mg/dL (65-115); Osmolality Calculated 283 mOsm/kg (285-295); Sodium 136 mmol/L (136-145); Thyroid Stimulating Hormone 1.76 uIU/mL (0.27-4.20); Total Bilirubin 0.4 mg/dL (0.15-1.2); Total Protein 7.7 g/dL (6.6-8.7)
[2020-10-28 19:48] LABS: Potassium 2.9 mmol/L (3.5-5.1)
[2020-10-28 20:02] LABS: Free T4 Free Thyroxine 1.39 ng/dL (0.82-1.77)
[2020-10-28 21:51] LABS: Estmated Average Glucose 105; Hemoglobin A1C 5.3 % (4.0-6.0)
== END 2020-10-28 18:12 | disposition home or self-care (01) ==
LOC: LAB 18:15
PROVIDERS: PCP Physician Assistant; Visit Provider General Practice
DX: I10 Essential (primary) hypertension (principal)
CPT/HCPCS: 80053; 83036; 84439; 84443; 85025

== ENCOUNTER 2020-11-01 15:43 | Observation (INO) | payer MEDICAID, SELFPAY ==
[2020-10-27 09:53] VITALS: BMI 39.9
--- NOTE | 2020-10-27 10:25 | ECG_ITS ---
[facility] Test Date: 2020-10-27 Pat Name: Selena Decker Department: Room: Gender: Female Vegetable Sorter: : 1970 Requested By: Stoney Nieto Order Number: [id number] Jarvis MD: JASMIN CROWELL Measurements Intervals [place] Rate: 87 P: 78 [place]: 142 QRS: 73 QRSD: 88 T: 56 QT: 374 QTc: 450 Interpretive Statements SINUS RHYTHM No previous ECG available for comparison Electronically Signed On 10-27-2020 20:08:55 ROOFER ASSISTANT by JASMIN CROWELL [id number]
--- NOTE | 2020-10-27 10:34 | ANES.PREANE2 ---
Pre-Anesthetic Assessment Pre-Anesthetic Assessment: Height/Weight: Height 1.65 m Weight 108.862 kg Preop Diagnosis: L4/5 spondylolisthesis Proposed Procedure: Operation Date: 11/01/20 08:45 Proposed Procedures p L4/5 [id number], [id number], 35239, 06165, 04143, 90184 M43.16(Not Applicable) - Warren H Helene, DO Was Beta Mame taken within 24 hours: N/A Social: Social History: Tobacco and No alcohol Exam: Pre-Anes Outpt Exam: alert, oriented x 3 and regular rate & rhythm Additional Exam Findings (including area of procedure): BBS decreased with rhonchi Airway: Submandibular: WNL Cervical ROM: WNL MP: 2 Dentition: Full Pulmonary: Pulmonary: COPD CV/HEM: CV/HEM: Angina (Stable), CAD and HTN Metabolic: Metabolic: Morbid obesity Musc/skel: Musc/skel: Lower Back Pain and OA/DJD Comments: Chronic pain Neuropsych: Neuropsych: Anxiety and Depression Anesthetic Plan: ASA status: 3 Anesthesia: General Risk of > 500 ml blood loss (7ml/kg in children): Yes, adequate IV access and fluids planned PFSH Anesthesia PFSH: Medical History Lumbar stenosis with neurogenic claudication Morbid obesity with BMI of 45.0-49.9, adult Spinal stenosis of lumbar region with radiculopathy Spondylolisthesis, lumbar region Synovial cyst of lumbar spine Surgical History History of cholecystectomy History of tubal ligation Family History Mother Diabetes Father Diabetes Denies family history of Dementia Cancer Social History Smoking and tobacco status: current every day smoker Alcohol intake: never Housing: House service: No Current occupational status: employed 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
[2020-11-01] VITALS (19 sets, daily range): BP systolic 131–170; BP diastolic 77–94; PULSE 66–106; RESP 16–24; TEMP 36.3–37; O2SAT 92–99
--- NOTE | 2020-11-01 06:56 | SC_ITS ---
Procedure Done: 1. L4/5 Interbody fusion with posterolateral fusion 2. Instrumentation L4/5 3. Cage at L4/5 4. Laminectomy L4 5. use of autograft from same incision 6. allograft 7. Bone marrow aspirate from right iliac crest through separate incision in the fascia Procedure: 1. L4/5 Interbody fusion with posterolateral fusion 2. Instrumentation L4/5 3. Cage at L4/5 4. Laminectomy L4 5. use of autograft from same incision 6. allograft 7. Bone marrow aspirate from right iliac crest through separate incision in the fascia 112.0 seconds of fluoroscopic guidance, for a cumulative dose of 127.11 mGy, was provided to Dr. Narayan by the radiology department. C-arm images of the lumbar spine were saved for the patient's permanent record. [facility]
[2020-11-01] MEDS: sodium chloride 0.9% 1,000 ML 30 ML IV (07:44)
--- NOTE | 2020-11-01 08:25 | P.ANESUD_ITS ---
Pre-Anesthetic Update Pre-Anesthetic Assessment: Date of Surgery/Procedure: 11/01/20 Preop [place] gnosis: L4/5 spondylolisthesis Proposed Procedure: Operation Date: 11/01/20 10:50 Proposed Procedures p L4/5 [id number], 47489, 31942, 88140, 56849 M43.16(Not Applicable) - Warren Narayan, DO Any changes to Pre-Anesthetic Assessment?: Yes Changes from Pre-Anesthetic Assessment: Patient's lung CTA Bilaterally, patient denotes that she no longer is coughing up any green sputum, no fevers, No N/V/D, no malaise/fatigue, marcelina thing is back to baseline, still has chronic baseline cough and hoarseness. States she asked for antibiotics prophylactically and has been taking them for approximately 4 days. Consistently taking albuterol and steroid. Patient given opportunity to postpone surgery until she completes full course of antibiotics for full pre-operative optimization. States she would like to proceed, because she is losing feeling in her legs. Given improvement in status and adherance to medication regimen and normal breath sounds, reasonable to proceed without completion of antibiotic regimen. Instructed patient that she need to complete the remainder of her antibiotics as scheduled post-operatively. Last Intake: Intake Last Liquid Date 10/31/20 Last Liquid Time 21:00 Last Solid Date 10/31/20 Last Solid Time 21:00 Vitals: Temperature 98.6 F 11/01/20 07:24 Pulse Rate 96 11/01/20 07:24 Respiratory Rate 18 11/01/20 07:24 Blood Pressure 166/94 11/01/20 07:24 Blood Pressure Katy n 118 11/01/20 07:24 Pulse Oximetry 97 11/01/20 07:24 Oxygen Delivery Me thod 11/01/20 07:42 Exam: Pre-Anes Outpt Exam: alert, oriented x 3, clear to auscultation bilaterally and regular rate & rhythm Cardiac Studies: No Data to Display
--- NOTE | 2020-11-01 10:21 | PM.HP ---
Providers/Chief Complaint Primary Care Provider: Dai Stark Chief Complaint: L4/5 [id number], [id number], [id number], [id number], [id number], [id number] History of Present Illness Selena Decker is a 49 year old female Details: New 49 year old female patient here for evaluation of her low back pain. Onset: [May 2020, patient states she rolled out of bed and had pain] Duration: [4 months] Characteristics: [Sharp, stabbing, burning] Severity: [moderate] Location: [low back, left posterior left leg] Radiating symptoms: [left posterior leg to the foot] Aggravating factors: [prolonged walking and standing, lifting, ] Alleviating factors: [bending over] Neuro deficits: numbness & tingling left foot, weakness to left lower extremity, incontinence of bladder, no saddle anesthesia. Prior tx: [Surgery on L4-L5 in February [address] Tilley] Review of Systems Narrative: Const: Denies: fever(s) or chills Card: Denies: chest pain or dyspnea on exertion Resp: Denies: dyspnea or productive cough GI: Denies: abdominal pain, nausea or vomiting : Denies: difficulty voiding Musc: Reports: back pain, extremity pain, extremity swelling and limited range of motion Skin/Breast: Denies: changes in skin color or dry skin Neuro: Reports: numbness in extremities and weakness in extremities Psych: Denies: anxiety Hilario/Lymph: Denies: easy bruising or easy bleeding Musc: Denies: joint warmth Medications/Allergies Home Medications Medication Instructions Recorded Confirmed Last Taken Type CoQ-10 1 tab PO DAILY 30 Days #30 tab 09/10/20 11/01/20 10/26/20 Rx albuterol sulfate [ProAir HFA] 2 puff INHALATION Q4H PRN 30 Days 09/10/20 11/01/20 11/01/20 06:30 Rx #1 unit aspirin 81 mg PO DAILY 30 Days #30 tab 09/10/20 11/01/20 10/26/20 Rx cyanocobalamin (vitamin B-12) 1,000 mcg IM Q30D 30 Days #1 ml 09/10/20 11/01/20 10/26/20 Rx cyclobenzaprine 10 mg PO TID PRN 30 Days #90 tab 09/10/20 11/01/20 10/26/20 Rx escitalopram oxalate 10 mg PO DAILY 30 Days #30 tab 09/10/20 11/01/20 10/26/20 Rx esomeprazole magnesium [Nexium 20 mg PO DAILY PRN 30 Days #30 cap 09/10/20 11/01/20 10/26/20 Rx 24HR] gabapentin 300 mg PO TID 30 Days #90 cap 09/10/20 11/01/20 10/26/20 Rx isosorbide mononitrate 60 mg PO DAILY 30 Days #30 tab 09/10/20 11/01/20 10/26/20 Rx lamotrigine [Lamictal] 100 mg PO DAILY #30 tab 09/10/20 11/01/20 10/26/20 Rx lisinopril-hydrochlorothiazide 1 tab PO DAILY 30 Days #30 tab 09/10/20 11/01/20 10/26/20 Rx loratadine [Claritin] 10 mg PO DAILY 30 Days #30 tab 09/10/20 11/01/20 10/26/20 Rx methocarbamol 750 mg PO TID 30 Days #90 tab 09/10/20 11/01/20 10/26/20 Rx naproxen 500 mg PO Q12H 30 Days #60 tab 09/10/20 11/01/20 10/26/20 Rx nitroglycerin 0.4 mg SUBLINGUAL PRN 30 Days #30 09/10/20 10/27/20 Unknown Rx tab propranolol 10 mg PO BID 30 Days #60 tab 09/10/20 11/01/20 10/26/20 Rx tramadol 50 mg PO Q6H PRN 7 Days #28 tab 09/10/20 11/01/20 10/26/20 Rx Allergies Allergy/AdvReac Type Severity Reaction Status Date / Time codeine Allergy ALGY-Anaphy Verified 11/01/20 07:11 laxis Opioids - Morphine Analogues Allergy ADR-Vomitin Verified 11/01/20 07:11 g pravastatin Allergy Unknown Verified 11/01/20 07:11 pseudoephedrine Allergy ALGY-Hives Verified 11/01/20 07:11 [From [facility]] Mtojwud-Pou-Hdm Reductase Allergy Unknown Verified 11/01/20 07:11 Inhibitor PFSH Acute PFSH: Medical History Lumbar stenosis with neurogenic claudication Morbid obesity with BMI of 45.0-49.9, adult Spinal stenosis of lumbar region with radiculopathy Spondylolisthesis, lumbar region Synovial cyst of lumbar spine Surgical History History of cholecystectomy History of tubal ligation Family History Mother Diabetes Father Diabetes Denies family history of Dementia Cancer Social History Smoking and tobacco status: current every day smoker Alcohol intake: never Housing: House service: No Current occupational status: employed 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 GENERAL: Patient in no acute distress. Well nourished. CARDIAC: Regular rate and rhythm. CHEST: Normal inspirator effort, normal respiratory rate. ABDOMEN: Soft and non-tender. SKIN: Clear, warm and intact. NEURO?PSYCH: The patient is alert and oriented to person, place and time. NEUROVASCULAR: Upper Extremity Sensory - SILT. Motor Strength: Shoulder abduction C5: 5/5; Wrist extension C6: 5/5; Elbow extension C7: 5/5; Hand Cert Occupational Therapy Asst C8: 5/5; Finger abduction T1: 5/5. Radial/ Ulnar/ Median in intact Lower Extremity Sensory - SILT. Motor Strength: Hip flexion L2/3; Ant/inner thigh: 5/5; Hip adduction L2/3: 5/5; Knee extension L4 Lat thigh: 5/5; Toe dorsiflexion L5: 5/5; Ankle dorsiflexion L5/ S1: 5/5; Plantar flexion S1: 5/5. DTR: Triceps 2+; Brachioradialis 2+; Patellar 2+; Achilles 2+. MUSCULOSKELETAL: UPPER EXTREMITIES: The patient had full active ROM in fingers, wrist, elbow, and shoulder. The patient demonstrated ability to fully flex/extend/abduct/adduct fingers, make ok sign, cross 2nd/3rd digits, extend 1st digit fully.. Radial pulse 2+, CR<2 seconds. LOWER EXTREMITIES: Pt has full, active ROM of toes, ankle, knee, and hip. Dorsalis pedis & posterior tibialis pulses 2+, CR<2 seconds. SPINE: Skin warm, dry, intact. A&P Additional A&P Information Lumbar spondylolisthesis unstable Fusion Attestations Medical Necessity Statement*: failed conservative tx Coding Level of Care Code Acute Ice Cream Mixer for Alfredo Al
[2020-11-01 12:53] LABS: Glomerular Filtration Rate 75.6 mL/min (90-130); Potassium 3.2 mmol/L (3.5-5.1)
[2020-11-01] MEDS: heparin, porcine 1,000 unit/mL INJ 10 mL 10000 UNIT XX (14:26)
--- NOTE | 2020-11-01 14:44 | SUR.OPER ---
daughter updated of surgical status. # given for son is not a working #.
[2020-11-01] MEDS: vancomycin 1,000 MG SDV 1000 MG XX (16:13)
--- NOTE | 2020-11-01 16:47 | XR_ITS ---
WS: [id number] C-ARM RADIOGRAPHS LUMBAR SPINE; 3 IMAGES HISTORY: L-SPINE PAIN COMPARISON: 09/16/2020. Intraoperative imaging during L4-5 posterior fusion with interbody spacer. XR/XR lumbar spine 1V port [id number] IMPRESSION: Intraoperative imaging during L4-5 posterior fusion and laminectomy.
--- NOTE | 2020-11-01 16:50 | PM.OP ---
Operative Report Date of procedure: November 01, 2020 Pre-op Diagnosis: L4/5 spondylolisthesis Procedure Done: 1. L4/5 Interbody fusion with posterolateral fusion 2. Instrumentation L4/5 3. Cage at L4/5 4. Laminectomy L4 5. use of autograft from same incision 6. allograft 7. Bone marrow aspirate from right iliac crest through separate incision in the fascia Procedure: 1. L4/5 Interbody fusion with posterolateral fusion 2. Instrumentation L4/5 3. Cage at L4/5 4. Laminectomy L4 5. use of autograft from same incision 6. allograft 7. Bone marrow aspirate from right iliac crest through separate incision in the fascia Patient is brought to the operative suite. After undergoing anesthesia, the patient had neuro monitoring attached. Patient was then placed in the prone position on the Shen table. All areas of impingement were well-padded. Patient was then prepped and draped in the normal sterile fashion. Skin incision was then made over the L4/5 space. Subperiosteal dissection was made out to the transverse processes of L4 and L5. Once the exposure was complete attention was then brought to placing the pedicle screws. Prior to placing the pedicle screws the [employer] bone marrow aspirate kit was used to aspirate bone marrow aspirate. This was done by using the sharp probe to open up the bone. Aspiration was performed and then the blunt probe was then used to dissect down to through the bone tunnel. An aspirating well drawn back a millimeter approximately 20 cc of bone marrow aspirate was used. Admixed with the allograft and autograft bone that will be used. The technique for placing the pedicle screws was to use a drill followed by the gearshift probe. Followed by the ball probe to feel the superior inferior medial lateral weinstein of the pedicles. Then placement of the screws. Was done at each pedicle. Screws were placed at L4 bilaterally and L5. Next attention was brought to performing the laminectomy ofL4. This was done using the high-speed bur Kerrisons and curettes. Once the lamina was removed and then attention was brought to performing a partial facetectomy on the contralateral side. This was done again using the high-speed bur curettes and Kerrisons. The ligamentum flavum was taken down bilaterally from L4 to L5. Attention was then brought to the facet on the ipsilateral side. The facet was taken down. The L5 nerve was decompressed as it passed around the L5 pedicle. The laminectomy was done for purposes of decompressing the nerve as well as placement of the cage. The L4 nerve was identified as it traversed through the L4/5 foramen. The thecal sac was identified and retracted. The L4/5 disc base was identified. Using a knife the disc base was opened. And then sequential afshin were placed. The first shaver was a 6 and the last shaver was a 11. Using a pituitary and down going curette the endplates were scraped and disc material was removed from the space. Once adequate decompression of the disc base was felt to be had. Osteoamp sponge was packed into the anterior aspect of the disc base. Then a size 11 cage from [employer] was placed after packing osteoamp into the cage. While placing the cage the thecal sac and L5 nerve was protected. C arm was used to ensure that the cages placed in the appropriate position. Attention was then brought to attaching the rods to the screws placed in the L4-L5 bilaterally. Caps were torqued into position. Locking the construct in place. Wound was copiously irrigated and then attention was brought to decorticating the facets and transverse processes laterally. Bone that was taken down from the lamina was used along with osteoamp fibers and sponges were packed into the lateral gutters along the facet joints. This was done bilaterally. Wound was then closed in a layered fashion starting with the thoracolumbar fascia. 0-Stratafix was used the sub cutaneous tissue was closed with 2-0 vicryl and skin with 3-0 nylon. Glue was then used to seal the skin and a steril dressing was applied. Patient was then placed in the supine position. The endotracheal tube was removed and patient was transferred to the PACU in stable condition.
[2020-11-01] MEDS: ondansetron 2 mg/ML SDV 2 mL 4 MG IVP (17:05)
[2020-11-01] MEDS: fentaNYL 50 mcg/mL INJ 2mL IVP ×2 (17:12→17:17)
--- NOTE | 2020-11-01 18:05 | ANE.PACU2 ---
Inpatient post-anesthesia follow up: Airway intact: Yes Vital signs: Temperature 98 F Pulse Rate 88 Respiratory Rate 17 Blood Pressure 155/87 Pulse Oximetry 94 Oxygen Delivery Me thod Room Air Oxygen Flow Rate Fraction of Inspir ed Oxygen Hydration adequate: Yes Nausea and vomiting: No Pain level: 4 Mental status: Baseline
[2020-11-01] MEDS: propranolol 20 mg Tablet 10 MG PO (18:19)
[2020-11-01] MEDS: docusate sodium 100 mg Capsule PO (18:19)
[2020-11-01] MEDS: HYDROcodone-acetaminophen 5-325 mg Tablet PO (18:19)
[2020-11-01] MEDS: naproxen 500 mg Tablet PO (18:21)
[2020-11-01] MEDS: ketorolac 30 mg/mL INJ IVP (18:22)
[2020-11-01] MEDS: lactated ringers 1,000 ML 90 ML IV (18:22)
--- NOTE | 2020-11-01 19:35 | PC.NURSE ---
Anxious Pt states she has enbandment issues and is asking if someone can stay with her. I called Dr Narayan and he gave permission to have one person to stay with her.
[2020-11-01] MEDS: nicotine 14 mg Patch 1 PATCH TRANSDERMA (21:04)
[2020-11-01] MEDS: morphine 4 mg/mL SDV 1 mL 2 MG IVP (21:04)
[2020-11-01] MEDS: gabapentin 300 mg Capsule PO (21:05)
[2020-11-01] MEDS: methocarbamol 750 mg Tablet PO (21:10)
[2020-11-01] MEDS: cyanocobalamin 1,000 mcg/mL SDV 1000 MCG IM (21:11)
[2020-11-02] VITALS (7 sets, daily range): BP systolic 101–118; BP diastolic 67–70; PULSE 72–86; RESP 17–18; TEMP 36.8–37; O2SAT 93–98
[2020-11-02] MEDS: HYDROcodone-acetaminophen 5-325 mg Tablet PO ×2 (00:19→07:45)
[2020-11-02] MEDS: ketorolac 30 mg/mL INJ IVP (00:22)
[2020-11-02 02:17] LABS: Basophils % 0.3 %; Eosinophils % 0.1 %; Hematocrit 38.4 % (37.0-47.0); Hemoglobin 12.3 g/dL (11.5-15.3); Lymphocytes # 2.1 10^3/uL (0.8-4.8); Lymphocytes % 14.7 %; Mean Corpuscular Hemoglobin 29.9 pg (28.0-34.0); Mean Corpuscular Volume 93.4 fL (81-99); Mean Platelet Volume 8.7 fL (7.4-10.4); Monocytes # 0.7 10^3/uL (0.2-0.9); Neutrophils # 11.42 10^3/uL (1.8-7.7); Neutrophils % 79.6 %; Nucleated Red Blood Cells % 0 %; Platelet Count 293 10^3/cmm (130-400); Red Blood Count 4.11 10^6/uL (4.1-5.3); Red Cell Distribution Width 13.4 % (12.1-15.1); White Blood Count 14.4 10^3/uL (4.0-10.0)
[2020-11-02 02:53] LABS: Alanine Aminotransferase 42 U/L (0-33); Albumin Level 3.2 g/dL (3.5-5.2); Alkaline Phosphatase 103 IU/L (35-105); Anion Gap 14.1 (5-19); Aspartate Amino Transferase 48 U/L (0-32); Blood Urea Nitrogen 25 mg/dL (6-20); Calcium 7.8 mg/dL (8.5-10.5); Carbon Dioxide 27 mmol/L (22-29); Chloride 106 mmol/L (98-107); Globulin 2.7 g/dL (1.3-4.6); Glomerular Filtration Rate 52.4 mL/min (90-130); Glucose 121 mg/dL (65-115); Osmolality Calculated 302 mOsm/kg (285-295); Potassium 4.1 mmol/L (3.5-5.1); Sodium 143 mmol/L (136-145); Total Bilirubin 0.2 mg/dL (0.15-1.2); Total Protein 5.9 g/dL (6.6-8.7)
[2020-11-02] MEDS: lactated ringers 1,000 ML 90 ML IV (05:10)
[2020-11-02] MEDS: naproxen 500 mg Tablet PO (05:10)
[2020-11-02] MEDS: morphine 4 mg/mL SDV 1 mL 2 MG IVP ×2 (05:11→10:29)
[2020-11-02] MEDS: enoxaparin 40 mg/0.4 mL Syringe SUBCUT (05:11)
[2020-11-02] MEDS: ondansetron 2 mg/ML SDV 2 mL 4 MG IVP (05:11)
--- NOTE | 2020-11-02 07:40 | PM.CONSULT ---
Providers/Reason For Consult Consulting Physican/Specialty*: [facility] Reason for Consult*: Managing Medical comorbid conditions. Attending Physician: Warren Narayan DO Primary Care Provider: Dai Stark History of Present Illness History of Present Illness Selena Decker is a 49 year old female with PMH of HTN, Lumbar stenosis with neurogenic claudication , Morbid obesity with BMI of 45.0-49.9, adult Spinal stenosis of lumbar region with radiculopathy, was admitted under orthopedic service for management of chronic low back pain.She is s/p L4/5 Interbody fusion with posterolateral fusion.Medicine was consulted for the management of medical comorbid conditions. When I examined the patient she denied an active complain.Labs were ordered.Medications were reviewed. Vitals were reviewed. Review of Systems Const: Denies: fever(s), chills, body aches, change in appetite or diaphoresis Card: Denies: palpitations, edema, swelling of feet/ankles, dyspnea on exertion, orthopnea or leg pain with exertion Resp: Denies: dyspnea or pain on inspiration GI: Denies: abdominal pain, nausea, vomiting, diarrhea or constipation : Denies: flank pain Neuro: Denies: headache(s) Meds/Allergies Home Medications and Allergies Home Medications Medication Instructions Recorded Confirmed Last Taken Type CoQ-10 1 tab PO DAILY 30 Days #30 tab 09/10/20 11/01/20 10/26/20 Rx albuterol sulfate [ProAir HFA] 2 puff INHALATION Q4H PRN 30 Days 09/10/20 11/01/20 11/01/20 06:30 Rx #1 unit aspirin 81 mg PO DAILY 30 Days #30 tab 09/10/20 11/01/20 10/26/20 Rx cyanocobalamin (vitamin B-12) 1,000 mcg IM Q30D 30 Days #1 ml 09/10/20 11/01/20 10/26/20 Rx cyclobenzaprine 10 mg PO TID PRN 30 Days #90 tab 09/10/20 11/01/20 10/26/20 Rx escitalopram oxalate 10 mg PO DAILY 30 Days #30 tab 09/10/20 11/01/20 10/26/20 Rx esomeprazole magnesium [Nexium 20 mg PO DAILY PRN 30 Days #30 cap 09/10/20 11/01/20 10/26/20 Rx 24HR] gabapentin 300 mg PO TID 30 Days #90 cap 09/10/20 11/01/20 10/26/20 Rx isosorbide mononitrate 60 mg PO DAILY 30 Days #30 tab 09/10/20 11/01/20 10/26/20 Rx lamotrigine [Lamictal] 100 mg PO DAILY #30 tab 09/10/20 11/01/20 10/26/20 Rx lisinopril-hydrochlorothiazide 1 tab PO DAILY 30 Days #30 tab 09/10/20 11/01/20 10/26/20 Rx loratadine [Claritin] 10 mg PO DAILY 30 Days #30 tab 09/10/20 11/01/20 10/26/20 Rx methocarbamol 750 mg PO TID 30 Days #90 tab 09/10/20 11/01/20 10/26/20 Rx naproxen 500 mg PO Q12H 30 Days #60 tab 09/10/20 11/01/20 10/26/20 Rx nitroglycerin 0.4 mg SUBLINGUAL PRN 30 Days #30 09/10/20 10/27/20 Unknown Rx tab propranolol 10 mg PO BID 30 Days #60 tab 09/10/20 11/01/20 10/26/20 Rx tramadol 50 mg PO Q6H PRN 7 Days #28 tab 09/10/20 11/01/20 10/26/20 Rx hydrocodone-acetaminophen 1 - 2 tab PO .Q4-6H #40 tab 11/02/20 Unknown Rx Allergies Allergy/AdvReac Type Severity Reaction Status Date / Time codeine Allergy ALGY-Anaphy Verified 11/01/20 07:11 laxis Opioids - Morphine Analogues Allergy ADR-Vomitin Verified 11/01/20 07:11 g pravastatin Allergy Unknown Verified 11/01/20 07:11 pseudoephedrine Allergy ALGY-Hives Verified 11/01/20 07:11 [From [facility]] [id number] Reductase Allergy Unknown Verified 11/01/20 07:11 Inhibitor Current Medications Current Medications Generic Name Dose Route Start Last Admin Trade Name Freq PRN Reason Stop Dose Admin Hydrocodone Bitart/Acetaminophen 1 - 2 tab 11/01/20 16:40 11/02/20 00:19 Hydrocodone-Acetaminophen 5-325 Mg Tablet PO 2 tab Q4H PRN Administration MODERATE TO SEVERE PAIN Cyanocobalamin 1,000 mcg 11/01/20 18:30 11/01/20 21:11 Cyanocobalamin 1,000 Mcg/Ml Sdv IM 1,000 mcg Q30D [facility] Administration Docusate Sodium 100 mg 11/01/20 18:00 11/01/20 18:19 Docusate Sodium 100 Mg Capsule PO 100 mg BID [facility] Administration Enoxaparin Sodium 40 mg 11/02/20 06:00 11/02/20 05:11 Enoxaparin 40 Mg/0.4 Ml Syringe SUBCUT 40 mg Q24H [facility] Administration Gabapentin 300 mg 11/01/20 21:00 11/01/20 21:05 Gabapentin 300 Mg Capsule PO 300 mg TID [facility] Administration Lactated Ringer's 1,000 mls @ 90 mls/hr 11/01/20 16:45 11/02/20 05:10 Lactated Ringers IV 90 mls/hr .Q11H7M [facility] Administration Cefazolin Sodium/Dextrose 2 gm in 50 mls @ 100 mls/hr 11/01/20 21:00 11/02/20 06:41 Kefzol IV 11/02/20 13:29 Infused Q8H [facility] Infusion Protocol Ketorolac Tromethamine 30 mg 11/01/20 16:40 11/02/20 00:22 Ketorolac 30 Mg/Ml Inj IVP 30 mg Q6H PRN Administration BREAKTHROUGH PAIN Methocarbamol 750 mg 11/01/20 21:00 11/01/20 21:10 Methocarbamol 750 Mg Tablet PO 750 mg TID [facility] Administration Morphine Sulfate 2 mg 11/01/20 16:40 11/02/20 05:11 Morphine 4 Mg/Ml Sdv 1 Ml IVP 2 mg Q4H PRN Administration SEVERE PAIN Naproxen 500 mg 11/01/20 16:45 11/02/20 05:10 Naproxen 500 Mg Tablet PO 500 mg Q12H [facility] Administration Nicotine 1 patch 11/01/20 20:37 11/01/20 21:04 Nicotine 14 Mg Patch TRANSDERMA 1 patch DAILY [facility] Administration Ondansetron HCl 4 mg 11/01/20 16:40 11/02/20 05:11 Ondansetron 2 Mg/Ml Sdv 2 Ml IVP 4 mg Q6H PRN Administration NAUSEA AND VOMITING Propranolol HCl 10 mg 11/01/20 18:00 11/01/20 18:19 Propranolol 20 Mg Tablet PO 10 mg BID [place] Administration PFSH Acute PFSH: Medical History Lumbar stenosis with neurogenic claudication Morbid obesity with BMI of 45.0-49.9, adult Spinal stenosis of lumbar region with radiculopathy Spondylolisthesis, lumbar region Synovial cyst of lumbar spine Surgical History History of cholecystectomy History of tubal ligation Family History Mother Diabetes Father Diabetes Denies family history of Dementia Cancer Social History Smoking and tobacco status: current every day smoker Alcohol intake: never Housing: House service: No Current occupational status: employed 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 Female Reproductive History: Date of last menstrual period: 10/04/20 Vitals/I&O/Wt Last Vital Signs Temp 98.6 F 11/02/20 04:00 Pulse 86 11/02/20 04:00 Resp 18 11/02/20 05:11 BP 118/67 11/02/20 04:00 Pulse Ox 93 11/02/20 04:00 11/01/20 11/02/20 11/02/20 22:59 06:59 14:59 Intake Total 1113 / 1163 1169 / 2332 Output Total 200 / 200 425 / 625 Balance 913 / 963 744 / 1707 Physical Exam Const: COMMON NORMALS: patient oriented x3 HENMT: COMMON NORMALS: normocephalic, atraumatic, hearing grossly normal bilaterally and external ears normal HEAD & SCALP: normocephalic and atraumatic EXTERNAL EAR: Yes external ears normal Eye: COMMON NORMALS: no scleral icterus GENERAL EYE: appearance normal, both eyes and all related structures Chest: COMMONS NORMALS: normal inspection of the chest and normal palpation of entire chest wall CHEST: Yes Symmetrical chest wall rise Resp: COMMON NORMALS: normal respiratory effort, No retractions, No use of accessory muscles and clear to auscultation bilaterally EFFORT & INSPECTION: Yes symmetric chest movement AUSCULTATION: clear to auscultation bilaterally Cardio: COMMON NORMALS: regular rate, regular rhythm, S1 normal heart sound present, S2 normal heart sound present, No gallops present (Cardio), No murmurs present (Cardio), No rub (Cardio) and Peripheral pulses 2+ throughout RATE: regular rate RHYTHM: regular rhythm HEART SOUNDS: S1 normal heart sound present and S2 normal heart sound present PERIPHERAL PULSES: Peripheral pulses 2+ throughout GI: COMMON NORMALS: Normal to inspection, nondistended, normoactive bowel sounds present, Soft to palpation, non-tender, No hepatosplenomegaly present and no masses AUSCULTATION: Yes normoactive bowel sounds PALPATION: Yes Soft to palpation and Yes No hepatosplenomegaly present RECTAL EXAM: deferred Extremity: COMMON NORMALS: no clubbing, cyanosis or edema and no pedal edema Neuro: COMMON NORMALS: patient oriented x3 A&P Assessment and plan (1) Hypertension: Continue Home Lisinopril 20 mg po daily Continue HCTZ 25 MG PO ZEINAB Status: Acute (2) Bronchitis: Currently on amoxicillin.Will complete the Course.2 more days left. Status: Acute (3) Morbid obesity with BMI of 45.0-49.9, adult: Status: Acute Consult Attestations Medical Necessity Statement: Per Primary team. 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
[2020-11-02] MEDS: methocarbamol 750 mg Tablet PO (08:01)
[2020-11-02] MEDS: docusate sodium 100 mg Capsule PO (08:02)
[2020-11-02] MEDS: pantoprazole DR 40 mg Tablet PO (08:02)
[2020-11-02] MEDS: propranolol 20 mg Tablet 10 MG PO (08:02)
[2020-11-02] MEDS: hydroCHLOROthiazide 25 mg Tablet PO (08:03)
[2020-11-02] MEDS: aspirin 81 mg EC Tablet PO (08:03)
[2020-11-02] MEDS: lisinopril 20 mg Tablet PO (08:03)
[2020-11-02] MEDS: nicotine 14 mg Patch 1 PATCH TRANSDERMA (08:04)
[2020-11-02] MEDS: loratadine 10 mg Tablet PO (08:04)
[2020-11-02] MEDS: gabapentin 300 mg Capsule PO (08:04)
--- NOTE | 2020-11-02 08:10 | P.DS_ITS ---
Discharge Providers Date of Admission: 11/01/20 15:43 Date of Discharge: November 02, 2020 Attending Provider at Admission: Warren Narayan DO Attending Provider at Discharge: Warren Narayan DO Primary Care Provider: Dai Stark Reason for Visit Reason for Visit: L4/5 [id number], [id number], [id number], [id number], [id number] Hospital Course Hospital Course Patient was admitted on 11/01/2020 had a L4-5 posterior lumbar interbody fusion done. Patient did well through the night. No complaints. At this point the last shift patient had 50 cc out. Of her drain. She will be discharged today after she gets up with therapy. And will follow up in clinic in 2 to 3 weeks. Physical Exam Narrative: EXAM NARRATIVE: Vital 5 strength bilateral lower extremities sensation intact. Patient resting in bed comfortably at this point. Wound is dry. Discharge Data Data Completed and Pending: Completed Studies During Hospitalization Category Date Time Status XR lumbar spine 1 V port [id number] Routi ne Exams 11/01/20 16:47 Completed Pending at discharge Category Date Time Status C-arm Fluoroscopy [id number] Routine Exams 11/01/20 06:56 Taken Labs from last 24 hours 11/02/20 11/02/20 11/01/20 02:08 02:08 12:15 WBC 14.4 H RBC 4.11 Hgb 12.3 Hct 38.4 MCV 93.4 MCH 29.9 MCHC 32.0 RDW 13.4 Plt Count 293 MPV 8.7 Neut % (Auto) 79.6 Lymph % (Auto) 14.7 [place] % (Auto) 5.0 Eos % (Auto) 0.1 Baso % (Auto) 0.3 Neut # (Auto) 11.42 H Lymph # (Auto) 2.1 [place] # (Auto) 0.7 Eos # (Auto) 0.0 Baso # (Auto) 0.0 Nucleated RBC % (a uto) 0 Nucleated RBCs # 0.0 Sodium 143 Potassium 4.1 3.2 L Chloride 106 Carbon Dioxide 27 Anion Gap 14.1 BUN 25 H Creatinine 1.1 H 0.8 GFR Calculation 52.4 L 75.6 L Glucose 121 H Calculated Osmolal ity 302 H Calcium 7.8 L Total Bilirubin 0.2 AST 48 H ALT 42 H Alkaline Phosphata se 103 Total Protein 5.9 L Albumin 3.2 L Globulin 2.7 Vitals: Last Vital Signs Temp 98.2 F 11/02/20 07:45 Pulse 79 11/02/20 07:45 Resp 17 11/02/20 07:45 BP 101/68 11/02/20 07:45 Pulse Ox 97 11/02/20 07:45 Discharge Plan Discharge Patient Disposition: Home Condition: Stable Prescriptions: New hydrocodone-acetaminophen 5-325 mg tablet 1 - 2 tab PO .Q4-6H Qty: 40 RF: 0 Continued naproxen 500 mg Tablet 500 mg PO Q12H 30 Days Qty: 60 RF: 1 escitalopram oxalate 10 mg Tablet 10 mg PO DAILY 30 Days Qty: 30 RF: 1 aspirin 81 mg Tablet,Delayed Release (Dr/Ec) 81 mg PO DAILY 30 Days Qty: 30 RF: 1 cyclobenzaprine 10 mg tablet 10 mg PO TID PRN (Reason: Muscle Spasm) 30 Days Qty: 90 RF: 0 tramadol 50 mg tablet 50 mg PO Q6H PRN (Reason: pain) 7 Days Qty: 28 RF: 1 isosorbide mononitrate 60 mg tablet extended release 24 hr 60 mg PO DAILY 30 Days Qty: 30 RF: 1 propranolol 10 mg tablet 10 mg PO BID 30 Days Qty: 60 RF: 1 cyanocobalamin (vitamin B-12) 1,000 mcg/mL solution 1,000 mcg IM Q30D 30 Days Qty: 1 RF: 1 nitroglycerin 0.4 mg tablet, sublingual 0.4 mg sublingual PRN 30 Days Qty: 30 RF: 1 gabapentin 300 mg capsule 300 mg PO TID 30 Days Qty: 90 RF: 1 lisinopril-hydrochlorothiazide 20-25 mg tablet 1 tab PO DAILY 30 Days Qty: 30 RF: 1 albuterol sulfate [ProAir HFA] 90 mcg/actuation HFA aerosol inhaler 2 puff INHALATION Q4H PRN (Reason: Shortness Of Breath) 30 Days Qty: 1 RF: 1 loratadine [Claritin] 10 mg Tablet 10 mg PO DAILY 30 Days Qty: 30 RF: 1 esomeprazole magnesium [Nexium 24HR] 20 mg Capsule,Delayed Release(Dr/Ec) 20 mg PO DAILY PRN (Reason: unknown) 30 Days Qty: 30 RF: 1 CoQ-10 1 tab PO DAILY 30 Days Qty: 30 RF: 1 methocarbamol 750 mg PO TID 30 Days Qty: 90 RF: 1 lamotrigine [Lamictal] 100 mg tablet 100 mg PO DAILY Qty: 30 RF: 1 Discharge Orders: Discharge Order (Routine); Ordered 11/02/20 Ordered By: Warren Narayan Referrals: Warren Narayan, DO [Physician] - 11/25/20 9:30 am Discharge Diet: Advance as tolerated and Usual diet Discharge Activity: Limit activity as instructed Patient Instructions: Hydrocodone/Acetaminophen (By mouth), Laminectomy for Herniated Disc (DC), Lumbar Spinal Fusion (GEN) Activity Restrictions/Additional Instructions: Thank you for [facility] for your care! The following is a list of instructions, from your provider, to follow upon your discharge to ensure you have the optimal recovery from your recent injury orsurgery. Follow-up care is a santos part of your treatment and safety. Be sure to make and go to all appointments, and call your doctor if you are having problems. If you do not already have a follow-up appointment made, call Dr. Narayan office in the next 1-3 days to make follow up appointment for 2-3 weeks at [phone]. It is also a good idea to know your test results and keep a list of the medicines you take. Medications will be prescribed for you at your provider's discretion. These medications are to be used as instructed; if they are taken more often that prescribed they will not be refilled early and in most cases will not be refilled at all. > When a refill is needed,you should contact [facility] 2-3 business days before your prescription runs out. Medications will NOT be refilled by rehabilitation therapy technician providers after hours! > Many pain medications contain Tylenol (Acetaminophen). Do not consume more than 4,000 mg of Tylenol per day in total with any combination ofmedications. > Pain medications can cause constipation. Please use an over the counter stool softener as directed, while taking pain medications. Consulty our local pharmacist with questions or recommendations on stool softeners. If constipation persists, contact our office or your primary care provider. > While under our care,you are not to receive pain medications or other controlled substances from any other provider unless our office is notified and approves. Any attempts to do so will result in refusal to prescribe any further pain medications and possible dismissal from our practice. ? Your wound and/or dressing should remain clean and dry for 2 days after surgery. On postoperative day 2 (48 hours after your surgery) the dressing (if present) should be removed and it is okay to shower and get the incision wet. Pad dry afterwards. No further dressing should be required from that point on. Do not put any creams or ointments on theincision > It is normal for there to be a small amount of discharge (bloody or blood tinged) present from a surgical wound for the first 1-3days. > The wound should be examined twice a day for signs of infection. Mild redness or bruising is to be expected but indications that an infection maybe starting would include; An increase in redness, swelling, or discharge, a foul odor present around the incision, and/or a fever greater than 101 ?F ? Showering is permitted, however we ask that you do not take a bath, sit in a whirlpool / Jacuzzi, or go swimming for 1 month. For only the first 2 days after surgery, lt wilt be necessary for you to cover your wound/dressing with plastic and tape to keep it dry. ? Walking is essential for the healing process after surgery. We would like you to slowly advance your walking. This should be done on relatively flat clear ground (inside or out) or can be done on a treadmill. Remember this goal does not have to happen all at once, slowly increase your distance and duration. This can be broken into more more than one walk per day as tolerated. Patients who walk as directed after surgery rarely require Physical Therapy. In the unlikely event this issue arises your provider will direct hospital staff to make the appropriate arrangements. ? No lifting over 5 pounds {a gallon of milk) or bending/twisting until further notice. Each of these activities places an unnecessary amount of stress onto the body and can impede the delicate healing process. > Instead of bending at the waist, keep your back straight and bend at the knees. > Instead of twisting your torso, keep your back straight and turn your entire body with your feet. ? You may sleep in any position which makes you comfortable. Many patients find comfort sleeping in a reclining chair. It is not abnormal to have difficulty sleeping for the first several weeks following your surgery. We recommend trying Benadry! or Tylenol PM as directed to help with your sleeping difficulties. Both medications are over the counter and available withoutprescription. ? NO SMOKING!!! Smoking dramatically increases the probability of developing postoperative wound infections. ? Common complaints after lumbar and/or thoracic spine surgery include, but are not limited to: numbness and/or tingling in the legs, pain around the incision and surrounding tissues, muscle spasms, or stiffness of the middle to low back. Contact our office if these symptoms persist or if an acute change occurs. ? No driving for the first 3-5days, and not while taking narcotics until seen at your follow-up appointment and cleared. There are no restrictions for riding on short trips, however if you take a longer trip, arrangements should be made to make regular stops to get out of the vehicle and stretch . ? Swelling is an unfortunate event that will take place with any surgery and is the primary source of your postoperative discomfort. While walking and regular approved activities helps control inflammation, there are additional steps you can take to minimizeswelling. > Place ice over the surgical site and surrounding tissue for twenty minutes, followed by applying a low/medium heat (heating pad) for an additional twenty minutes every 1-2 hours as needed for painrelief. > You may use of over the counter anti-inflammatory medications (Ibuprofen, Motrin, Aleve, Advil, etc) as directed on the package label. These types of medicines wm significantly reduce the amount of discomfort you experience after surgery from swelling. It should be noted that if you have and allergy to any of these medications, or a history of ulcers or kidney disease you should consult you primary care provider prior to starting these medications. 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
--- NOTE | 2020-11-02 09:31 | PC.NURSE ---
This nurse and YESSI Culp pulled the hemovac per Dr Narayan. Patient tolerated removal well. Covered puncture wound with 4x4 gauze and tegaderm.
--- NOTE | 2020-11-02 09:57 | PC.CHAP ---
Pastoral Care Encounter/Spiritual Assessment Type of Contact [] Declined veterinary practice manager visit [] Patient/Family/Request visit [] Outpatient visit [] Follow-up visit [] Physician referral [] Code/Alert [x] Routine visit [] Staff referral [] Actively dying [] Patient sleeping [] Family support [] [] Out of room [] Palliative care [] [x] Receiving care in room [] Pre-surgical visit [] Trauma [] Long length of stay [] ICU visit [] Other: Relational/Emotional Strength [] Patient feels connected with others/family/visitors/staff [] Distress [] Loneliness/isolation [] Abandonment Spirituality of Patient [] Person of Ellen [] Attends Mandaeism of their Ellen [] Believes in Prayer [] Reads Bible or Mormonism materials [] There are Spiritual issues to be addressed [employer] Interventions [] Prayer [] Active listening [] Non-anxious presence [] Spiritual/emotional support [] Crisis/trauma care [] Spiritual counseling [] Bereavement support [] Provided bereavement packet [] Provided Bible/devotional materials [] Provided toy/stuffed animal, coloring book to patient or family member [] Provided Communion [] Anointing/[place] [] Salvation [] Completed spiritual assessment [] Other: Impact on Illness or Injury [] Angry [] Fearful [] Anxious [] Often cries [] Exhaustion [] Unable to work [] Unable to attend advent [] Unable to walk/stand [] Unable to read [] Unable to drive [] Unable to eat/drink [] Unable to sleep [] Unable to be with family [] Patient intubated [] Other: Summary Time spent with patient
== END 2020-11-02 10:46 | disposition home or self-care (01) ==
LOC: MEDSURG 15:43
PROVIDERS: Anesthesiology; Internal Medicine; Admitting Provider Orthopaedic Surgery; PCP Physician Assistant; Visit Provider Orthopaedic Surgery
PROC: (CPT 20930; principal; 2020-11-01 10:35)
PROC: (CPT 20930; 2020-11-01 10:35)
DX: M43.16 Spondylolisthesis, lumbar region (principal); E66.01 Morbid (severe) obesity due to excess calories; Z68.42 Body mass index [BMI] 45.0-49.9, adult; Z79.82 Long term (current) use of aspirin; F17.210 Nicotine dependence, cigarettes, uncomplicated; I10 Essential (primary) hypertension; J40 Bronchitis, not specified as acute or chronic; J44.9 Chronic obstructive pulmonary disease, unspecified; I25.10 Atherosclerotic heart disease of native coronary artery without angina pectoris; M19.90 Unspecified osteoarthritis, unspecified site
CPT/HCPCS: 20930; 20936; 22633; 22634; 22840; 22853; 63047; 36415; 72020; 76000; 80053; 82565; 84132; 85025; 93005; 96361; 96365; 96367; 96372; 96375; 97161; 97530; C1713; G0378; J0690; J1100; J1170; J1644; J1650; J1885; J2250; J2270; J2405; J2550; J2704; J2710; J3010; J3370; J3420; J3490; J3535; J7030

== ENCOUNTER → 2020-12-28 11:18 | Outpatient (BNVA) | payer MEDICAID, SELFPAY | PROVIDERS: PCP Physician Assistant; Visit Provider Psychiatry & Neurology Psychiatry | DX: F33.2 Major depressive disorder, recurrent severe without psychotic features (principal); F43.12 Post-traumatic stress disorder, chronic; F17.200 Nicotine dependence, unspecified, uncomplicated; F12.20 Cannabis dependence, uncomplicated | CPT/HCPCS: 99213 ==

== ENCOUNTER → 2021-01-06 09:13 | Outpatient (BNVA) | payer MEDICAID, SELFPAY | PROVIDERS: PCP Physician Assistant; Visit Provider Orthopaedic Surgery | DX: Z48.89 Encounter for other specified surgical aftercare (principal); M54.9 Dorsalgia, unspecified; M54.2 Cervicalgia; Z20.822 Contact with and (suspected) exposure to COVID-19 | CPT/HCPCS: 72050; 72100; 87635 ==

== ENCOUNTER 2021-01-08 14:28 | Emergency (ER) | payer MEDICAID, SELFPAY ==
[2021-01-08 14:36] VITALS: BP 189/111; PULSE 84; RESP 21; TEMP 36.7; O2SAT 100; BMI 36.8
--- NOTE | 2021-01-08 14:45 | XRR_ITS ---
PROCEDURE INFORMATION: Exam: XR Lumbosacral Spine Exam date and time: 01/08/2021 3:04 PM Age: 50 years old Clinical indication: Low back pain; Prior surgery; Surgery date: 6+ months TECHNIQUE: Imaging protocol: XR of the lumbosacral spine. Views: 2 or 3 views. COMPARISON: 1. OT XR lumbar spine 1V port [id number] 11/01/2020 2:05:50 PM 2. CR XR lumbar spine 2-3V* [id number] 01/06/2021 9:20 AM FINDINGS: Bones/joints: L4-L5 posterior fusion. Pedicle screws and posterior fusion rods have unremarkable position. Intervertebral disc spacer device at L4-L5 is displaced posterior partially within the spinal canal similar to comparison. No lumbar spine fracture. Multilevel facet joint arthropathy. No lytic, aggressive bone lesion. Laminectomy changes at L4 and L5. Soft tissues: Unremarkable. Intraperitoneal space: Right upper quadrant surgical clips. Vasculature: Mild severity atherosclerosis. XR/XR lumbar spine 2-3V* [id number] IMPRESSION: The intervertebral disc spacer device at L4-L5 has displaced posteriorly into the spinal canal since placement images on 11/01/2020 causing significant spinal canal stenosis.
--- NOTE | 2021-01-08 14:46 | ED_ITS ---
HPI - Back Pain/Injury General: Chief Complaint: Back Pain/Injury Stated Complaint: BACK PAIN Time Seen by Provider: 01/08/21 14:32 Source: patient and EMS Mode of arrival: EMS Limitations: no limitations History of Present Illness: HPI Narrative: Patient is a 50-year-old female who presents to ED today via EMS for evaluation of back pain. Patient underwent L4/5 interbody fusion with posteriolateral fusion by Dr. Narayan on 11/01/2020. Approximately a week ago she fell and had a postoperative visit in which x-rays were obtained which showed a loosening of her hardware. Patient is scheduled for revision on Sunday. She tells me she was at home today and was in the bathtub washing her hair and was leaned back and states when she bent forward she noticed excruciating lower back pain radiating down into her bilateral lower extremities. She was given morphine in route which helped with her pain but made her extremely nauseous. MD elicited complaint: back pain Pertinent past history: prior back pain and back surgery Onset (ago): hour(s) Timing: constant Severity: severe Similar Symptoms Previously: Yes Quality: sharp Location: lumbar spine Radiation: left leg below the knee and right leg below the knee Exacerbating factors: movement Relieving factors: immobilization Context: bending Associated symptoms: Reports no associated symptoms and nausea; Deny abdominal pain, chills, dysuria, fatigue, fever(s) or vomiting Work related injury: No Review of Systems Const: Denies: fever(s), chills, body aches, fatigue or malaise Eyes: Denies: change in vision or blurry vision Card: Denies: chest pain Resp: Denies: dyspnea GI: Reports: nausea; Denies: abdominal pain, vomiting or change in stool character : Denies: flank pain or dysuria Musc: Reports: back pain; Denies: neck pain, extremity pain, extremity swelling, joint pain, joint swelling, joint redness, joint warmth or joint stiffness Skin/Breast: Denies: rash Neuro: Denies: headache(s), numbness in extremities, weakness in extremities or sensory changes PFS ED PFSH: Medical History Adjustment disorder with depressed mood Lumbar stenosis with neurogenic claudication Morbid obesity with BMI of 45.0-49.9, adult Spinal stenosis of lumbar region with radiculopathy Spondylolisthesis, lumbar region Synovial cyst of lumbar spine Surgical History History of cholecystectomy History of tubal ligation Family History Mother Diabetes Father Diabetes Denies family history of Dementia Cancer Social History (Updated 01/08/21 @ 14:48 by Álvaro Cartagena RN) Smoking and tobacco status: current every day smoker cigarettes Packs smoked per day: 1 Years cigarettes smoked: 42 Quit status (tobacco): has tried quititng Number of times tried to quit tobacco: 10 Second hand smoke exposure: Yes Alcohol intake: never Substance/Drug Use: current Substance/Drug use frequency: daily Substance/Drug use type: Marijuana Housing: House service: No Current occupational status: employed Current occupation: [employer] Female Reproductive History: Date of last menstrual period: 10/04/20 Physical Exam Const: COMMON NORMALS: patient oriented x3, no limitations and alert GENERAL APPEARANCE: cooperative and in distress (appears uncomfortable) NUTRITIONAL APPEARANCE: obese ORIENTATION/CONSCIOUSNESS: Yes awake, Yes oriented to person, Yes oriented to place and Yes oriented to time HENMT: COMMON NORMALS: normocephalic and atraumatic HEAD & SCALP: normocephalic and atraumatic Resp: COMMON NORMALS: normal respiratory effort and clear to auscultation bilaterally AUSCULTATION: clear to auscultation bilaterally Cardio: COMMON NORMALS: regular rate and regular rhythm RATE: regular rate RHYTHM: regular rhythm GI: COMMON NORMALS: Normal to inspection, nondistended, normoactive bowel sounds present, Soft to palpation, non-tender, No hepatosplenomegaly present and no masses PALPATION: Yes Soft to palpation and Yes No hepatosplenomegaly present OTHER: states the morphine in route made her extremely nauseous Back/Pelvis: THORACIC SPINE/UPPER BACK: Yes normal to inspection LUMBAR SPINE/LOWER BACK: Yes pain with ROM, Yes lumbar spinal tenderness (mid to lower L spine), No paraspinal muscle spasm, Yes straight leg raise positive right and Yes straight leg raise positive left PELVIS: Yes buttocks normal SACROILIAC JOINTS: Yes SI joints normal Extremity: COMMON NORMALS: normal to inspection, full ROM, capillary refill normal and no calf tenderness Neuro: COMMON NORMALS: patient oriented x3, moves all extremities, no focal motor deficits and no sensory deficits noted SENSORIUM/ORIENTATION: Yes alert, Yes oriented to person, Yes oriented to place and Yes oriented to time GAIT: Yes Unable to assess gait MOTOR EXAM: 5/5 motor strength present throughout, Motor fasciculations not present and Normal motor muscle tone present throughout Skin: COMMON NORMALS: no rashes or lesions noted GENERAL SKIN EXAM: no rashes or lesions noted Course Vital Signs: Vital signs: Vital Signs Temperature 98.1 F 01/08/21 14:36 Pulse Rate 84 01/08/21 14:36 Respiratory Rate 21 H 01/08/21 14:36 Blood Pressure 189/111 01/08/21 14:36 Pulse Oximetry 100 01/08/21 14:36 MDM - Back Pain/Injury MDM Narrative: Medical decision making narrative: Patient feels much better. Sitting up eating/drinking. I don't appreciate any changes on her XR compared to recent previous. No neuro deficits. Recommend she contact Dr. Narayan on Sunday to let him know about her visit as she is scheduled for OR on Sunday. Imaging Data^: XR lumbar: My impression: no changes from recent previous films Discharge Plan Discharge Patient Disposition: Home Clinical Impression: Lumbar back pain Condition: Stable Prescriptions: Changed hydrocodone-acetaminophen 5-325 mg tablet 1 tab PO Q6H PRN (Reason: pain) Qty: 10 RF: 0 No Action bupropion HCl [Wellbutrin XL] 150 mg tablet extended release 24 hr 150 mg PO QAM Qty: 30 RF: 2 escitalopram oxalate 10 mg tablet 10 mg PO DAILY 30 Days Qty: 30 RF: 2 propranolol 10 mg tablet 10 mg PO BID 30 Days Qty: 60 RF: 2 naproxen sodium [Aleve] 220 mg capsule 440 mg PO BID PRNRF: 0 naproxen 500 mg Tablet 500 mg PO Q12H 30 Days Qty: 60 RF: 1 aspirin 81 mg Tablet,Delayed Release (Dr/Ec) 81 mg PO DAILY 30 Days Qty: 30 RF: 1 cyclobenzaprine 10 mg tablet 10 mg PO TID PRN (Reason: Muscle Spasm) 30 Days Qty: 90 RF: 0 tramadol 50 mg tablet 50 mg PO Q6H PRN (Reason: pain) 7 Days Qty: 28 RF: 1 isosorbide mononitrate 60 mg tablet extended release 24 hr 60 mg PO DAILY 30 Days Qty: 30 RF: 1 cyanocobalamin (vitamin B-12) 1,000 mcg/mL solution 1,000 mcg IM Q30D 30 Days Qty: 1 RF: 1 nitroglycerin 0.4 mg tablet, sublingual 0.4 mg sublingual PRN 30 Days Qty: 30 RF: 1 gabapentin 300 mg capsule 300 mg PO TID 30 Days Qty: 90 RF: 1 lisinopril-hydrochlorothiazide 20-25 mg tablet 1 tab PO DAILY 30 Days Qty: 30 RF: 1 albuterol sulfate [ProAir HFA] 90 mcg/actuation HFA aerosol inhaler 2 puff INHALATION Q4H PRN (Reason: Shortness Of Breath) 30 Days Qty: 1 RF: 1 loratadine [Claritin] 10 mg Tablet 10 mg PO DAILY 30 Days Qty: 30 RF: 1 esomeprazole magnesium [Nexium 24HR] 20 mg Capsule,Delayed Release(Dr/Ec) 20 mg PO DAILY PRN (Reason: unknown) 30 Days Qty: 30 RF: 1 CoQ-10 1 tab PO DAILY 30 Days Qty: 30 RF: 1 methocarbamol 750 mg PO TID 30 Days Qty: 90 RF: 1 Discharge Orders: Discharge ED (Routine); Ordered 01/08/21 Ordered By: Maddison Ramirez Referrals: Dai Stark PA [Primary Care Provider] - Patient Instructions: Opioid Safety Activity Restrictions/Additional Instructions: [facility] is committed to fighting the nationwide opiate epidemic. We are providing ALL patients with information regarding opiate safety. If you received opiate pain medication during your stay or if you received a prescription for opiate pain medication-please review this handout. If not, you may disregard. Thank you. Please contact Dr. Narayan on Sunday to make sure he is aware of your visit today to make sure he doesn't want to see you prior to your surgery on Sunday. Coding Level of Care Code ED Tester [employer] for Alfredo Fwd Exam Comprehensive
[2021-01-08] MEDS: metoclopramide 5 mg/mL SDV 2 mL 10 MG IVP (15:36)
[2021-01-08] MEDS: HYDROmorphone 1 mg/mL INJ 1 mL 0.5 MG IVP (15:36)
[2021-01-08 16:18] VITALS: BP 144/83; PULSE 80; RESP 18; O2SAT 97
== END 2021-01-08 16:20 | disposition home or self-care (01) ==
PROVIDERS: Emergency Provider Physician Assistant; PCP Physician Assistant
DX: M54.5 Low back pain (principal); Z79.82 Long term (current) use of aspirin; F17.210 Nicotine dependence, cigarettes, uncomplicated
CPT/HCPCS: 72100; 96374; 96375; 99283; J1170; J2765

== ENCOUNTER 2021-01-11 06:14 | Day surgery (SDC) | payer MEDICAID, SELFPAY ==
[2021-01-10 16:26] VITALS: BMI 36.8
[2021-01-11] VITALS (9 sets, daily range): BP systolic 94–138; BP diastolic 50–94; PULSE 72–93; RESP 17–18; TEMP 36.1–36.6; O2SAT 96–100
--- NOTE | 2021-01-11 | SCC_ITS ---
Procedure Done: Removal of deep hardware from the spine 10.1 seconds of fluoroscopic guidance, for a cumulative dose of 26.89 mGy, was provided to Dr. Narayan by the radiology department. C-arm images of the lumbar spine were saved for the patient's permanent record. [facility]
--- NOTE | 2021-01-11 | XR_ITS ---
WS: [id number] C-ARM RADIOGRAPHS LUMBAR SPINE; 3 IMAGES HISTORY: revision COMPARISON: 01/08/2021 Intraoperative imaging during revision of the lumbar fusion. Fusion hardware noted at the L4-5 level. Interbody spacer has been removed. XR/XR lumbar spine 2-3V* [id number] IMPRESSION: Intraoperative imaging during removal of the L4-5 interbody spacer.
--- NOTE | 2021-01-11 06:18 | W.PM.OPSUD ---
Surgery/Procedure H&P Update DATE OF PROCEDURE: January 11, 2021 DATE H&P PERFORMED: 01/06/21 H&P UPDATE INFORMATION: I have reviewed H&P completed within last 30 days, I have examined patient prior to procedure and No changes to prior documentation PREOP DIAGNOSIS: cage backing out PLANNED PROCEDURE: Operation Date: 01/11/21 07:00 Proposed Procedures p Posterior Lumbar Interbody Fusion with revision L4/5 28680 83036 18350 36907 [id number] [id number] T85.698A M43.16(Not Applicable) - Warren Narayan DO
--- NOTE | 2021-01-11 06:43 | ANES.PREANE2 ---
Pre-Anesthetic Assessment Pre-Anesthetic Assessment: Height/Weight: Height 1.65 m Weight 100.244 kg Temp Pulse Resp BP Pulse Ox 97.9 F 93 18 138/91 98 01/11/21 06:30 01/11/21 06:30 01/11/21 06:30 01/11/21 06:30 01/11/21 06:30 Preop Diagnosis: cage backing out Proposed Procedure: Operation Date: 01/11/21 07:00 Proposed Procedures p Posterior Lumbar Interbody Fusion with revision L4/5 40054 83289 01635 30785 40697 87669 66134 T85.698A M43.16(Not Applicable) - Warren Narayan, Familial anesthetic complications: None Was Beta Mame taken within 24 hours: Yes Was Clonidine taken within 24 hours: N/A Last intake: Intake Last Liquid Date 01/10/21 Last Liquid Time 22:30 Last Solid Date 01/10/21 Last Solid Time 22:30 Social: Social History: Tobacco and No alcohol Exam: Pre-Anes Outpt Exam: alert, oriented x 3, clear to auscultation bilaterally and regular rate & rhythm Airway: Cervical ROM: WNL MP: 3 Dentition: Full Pulmonary: Pulmonary: COPD CV/HEM: CV/HEM: Angina (Stable), CAD and HTN Metabolic: Metabolic: Morbid obesity Musc/skel: Musc/skel: Lower Back Pain Anesthetic Plan: ASA status: 3 Anesthesia: General Risk of > 500 ml blood loss (7ml/kg in children): No PFSH Anesthesia PFSH: Medical History Adjustment disorder with depressed mood Lumbar stenosis with neurogenic claudication Morbid obesity with BMI of 45.0-49.9, adult Spinal stenosis of lumbar region with radiculopathy Spondylolisthesis, lumbar region Synovial cyst of lumbar spine Surgical History History of cholecystectomy History of tubal ligation Family History Mother Diabetes Father Diabetes Denies family history of Dementia Cancer Social History (Updated 01/08/21 @ 14:48 by Álvaro Cartagena RN) Smoking and tobacco status: current every day smoker cigarettes Packs smoked per day: 1 Years cigarettes smoked: 42 Quit status (tobacco): has tried quititng Number of times tried to quit tobacco: 10 Second hand smoke exposure: Yes Alcohol intake: never Housing: House service: No Current occupational status: employed 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
--- NOTE | 2021-01-11 06:57 | P.HP_ITS ---
Providers/Chief Complaint Primary Care Provider: Dai Stark Chief Complaint: plif History of Present Illness Selena Decker is a 50 year old female Established 50 year old female patient here for post operative follow up following L4/5 Interbody fusion with posterolateral fusion. DOS:11/01/20. She is 9 weeks and 3 days post operation. Patient states she fell one week ago and fell on her right side. She is stating she has neck pain after her fall. HPI: post operation interbody fusion with posterolateral fusion Onset: 11/01/2020 Duration: constant Characteristics: aching Severity: 4 Location: lower back Radiating symptoms: none Aggravating factors: movement Alleviating factors: rest Neuro deficits: patient denies numbness, tingling, weakness, incontinence of bowel/bladder, saddle anesthesia. Prior tx: none Review of Systems Narrative: Const: Denies: fever(s) or chills Card: Denies: chest pain or dyspnea on exertion Resp: Denies: dyspnea or productive cough GI: Denies: abdominal pain, nausea or vomiting : Denies: difficulty voiding Musc: Reports: joint pain, joint swelling and limited range of motion Skin/Breast: Denies: changes in skin color or dry skin Neuro: Denies: numbness in extremities or weakness in extremities Psych: Denies: anxiety Hilario/Lymph: Denies: easy bruising or easy bleeding Medications/Allergies Home Medications Medication Instructions Recorded Confirmed Last Taken Type CoQ-10 1 tab PO DAILY 30 Days #30 tab 09/10/20 01/11/21 01/10/21 Rx albuterol sulfate [ProAir HFA] 2 puff INHALATION Q4H PRN 30 Days 09/10/20 01/11/21 01/10/21 Rx #1 unit aspirin 81 mg PO DAILY 30 Days #30 tab 09/10/20 01/11/21 01/10/21 Rx cyanocobalamin (vitamin B-12) 1,000 mcg IM Q30D 30 Days #1 ml 09/10/20 01/11/21 01/10/21 Rx cyclobenzaprine 10 mg PO TID PRN 30 Days #90 tab 09/10/20 01/11/21 01/10/21 Rx esomeprazole magnesium [Nexium 20 mg PO DAILY PRN 30 Days #30 cap 09/10/20 01/10/21 10/26/20 Rx 24HR] gabapentin 300 mg PO TID 30 Days #90 cap 09/10/20 01/11/21 01/11/21 05:30 Rx isosorbide mononitrate 60 mg PO DAILY 30 Days #30 tab 09/10/20 01/10/21 10/26/20 Rx lisinopril-hydrochlorothiazide 1 tab PO DAILY 30 Days #30 tab 09/10/20 01/10/21 10/26/20 Rx loratadine [Claritin] 10 mg PO DAILY 30 Days #30 tab 09/10/20 01/10/21 10/26/20 Rx methocarbamol 750 mg PO TID 30 Days #90 tab 09/10/20 01/11/21 01/11/21 05:30 Rx naproxen 500 mg PO Q12H 30 Days #60 tab 09/10/20 01/11/21 10/26/20 Rx nitroglycerin 0.4 mg SUBLINGUAL PRN 30 Days #30 09/10/20 01/10/21 Unknown Rx tab bupropion HCl 150 mg 24 hr tablet, 150 mg PO QAM #30 tab 12/28/20 01/11/21 01/10/21 Rx extended release escitalopram oxalate 10 mg tablet 10 mg PO DAILY 30 Days #30 tab 12/28/20 01/10/21 Unknown Rx naproxen sodium 220 mg capsule 440 mg PO BID PRN cap 12/28/20 01/11/21 Unknown History propranolol 10 mg tablet 10 mg PO BID 30 Days #60 tab 12/28/20 01/11/21 01/11/21 05:30 Rx hydrocodone-acetaminophen 1 tab PO Q6H PRN #10 tab 01/08/21 01/11/21 01/10/21 Rx Allergies Allergy/AdvReac Type Severity Reaction Status Date / Time codeine Allergy Severe ALGY-Anaphy Verified 01/11/21 06:41 laxis pseudoephedrine Allergy Intermediate ALGY-Hives Verified 01/11/21 06:41 [From [facility]] pravastatin Allergy Unknown Verified 01/11/21 06:41 Nehifgw-Dsd-Dfk Reductase Allergy Unknown Verified 01/11/21 06:41 Inhibitor Opioids - Morphine Analogues AdvReac Intermediate ADR-Vomitin Verified 01/11/21 06:41 g PFSH Acute PFSH: Medical History Adjustment disorder with depressed mood Lumbar stenosis with neurogenic claudication Morbid obesity with BMI of 45.0-49.9, adult Spinal stenosis of lumbar region with radiculopathy Spondylolisthesis, lumbar region Synovial cyst of lumbar spine Surgical History History of cholecystectomy History of tubal ligation Family History Mother Diabetes Father Diabetes Denies family history of Dementia Cancer Social History (Updated 01/08/21 @ 14:48 by Álvaro Cartagena RN) Smoking and tobacco status: current every day smoker cigarettes Packs smoked per day: 1 Years cigarettes smoked: 42 Quit status (tobacco): has tried quititng Number of times tried to quit tobacco: 10 Second hand smoke exposure: Yes Alcohol intake: never Housing: House service: No Current occupational status: employed Current occupation: [employer] Female Reproductive History: Date of last menstrual period: 10/04/20 Vitals/I&O/Wt Last Vital Signs Temp 97.9 F 01/11/21 06:30 Pulse 93 01/11/21 06:30 Resp 18 01/11/21 06:30 BP 138/91 01/11/21 06:30 Pulse Ox 98 01/11/21 06:30 Weight last 48 hrs Weight 221 lb Physical Exam Narrative: EXAM NARRATIVE: CONSTITUTIONAL: The patient is a normal appearing [] in no apparent distress. GENERAL: Patient in no acute distress. CARDIAC: Regular rate and rhythm. CHEST: Normal inspiratory effort, normal respiratory rate. ABDOMEN: Soft and nontender. SKIN: Clear, warm and intact. NEURO?PSYCH: The patient is alert and oriented to person, place and time. Sensorv /SILT Motor StrengthShoulder abduction C5 5/5Wrist extension C6 5/5Elbow extension C7 5/5Hand Financial Controller C8 5/5Finger abduction T15/5 Radial/ Ulnar/ Median n intact LowerSensory (SILT)Motor StrengthHin flexion L2/3Ant/inner thigh 5/5Hip adduction L2/3 5/5Knee extension L4 Lat thigh, 5/5Toe dorsiflexion L5 5/5Ankle dorsiflexion L5/ W90Kuqwttu flexion S1 5/5 DTRBleeps 2+Triceps 2+Brachioradialis 2+Patellar 2+Achilles 2+ MUSCULOSKELETAL: [] UPPEREXTREMITIES: The patient had full active ROM in fingers, wrist, elbow, and shoulder. The patient demonstrated ability to fully flex/ex tend/abduct/adduct fingers, make ok sign, cross 2nd/3rd digits, extend 1st digit fully.. Radial pulse 2+, CR<2 seconds. LOWER EXTREMITIES: Pt has full, active ROM of toes, ankle, knee, and hip. Dorsal is pedis/posterior tibialis pulses 2+, CR<2 seconds. SPINE: Skin warm, dry, intact. A&P Assessment and plan (1) Spinal stenosis of lumbar region with radiculopathy: X rays taken at last vist showed her cage backing out. At this point my plan is to remove it Status: Acute Attestations Medical Necessity Statement*: cage is backing out Coding Level of Care Code Acute Otr [employer] for Alfredo Al Diagnoses Spinal stenosis of lumbar region with radiculopathy M48.061; M54.16
--- NOTE | 2021-01-11 06:57 | P.HPUD_ITS ---
Surgery/Procedure H&P Update DATE OF PROCEDURE: January 11, 2021 DATE H&P PERFORMED: 01/11/21 PREOP DIAGNOSIS: cage backing out PLANNED PROCEDURE: Operation Date: 01/11/21 07:00 Proposed Procedures p Posterior Lumbar Interbody Fusion with revision L4/5 49670 96550 04678 33092 85542 82598 00980 T85.698A M43.16(Not Applicable) - Warren Narayan, DO
--- NOTE | 2021-01-11 06:57 | W.PM.OPSUD ---
Surgery/Procedure H&P Update DATE OF PROCEDURE: January 11, 2021 DATE H&P PERFORMED: 01/11/21 PREOP DIAGNOSIS: cage backing out PLANNED PROCEDURE: Operation Date: 01/11/21 07:00 Proposed Procedures p Posterior Lumbar Interbody Fusion with revision L4/5 94351 40644 25716 95471 95335 48382 64733 T85.698A M43.16(Not Applicable) - Warren Narayan, DO
[2021-01-11] MEDS: sodium chloride 0.9% 1,000 ML 30 ML IV (07:02)
--- NOTE | 2021-01-11 09:11 | P.OP_ITS ---
Operative Report Date of procedure: January 11, 2021 Pre-op Diagnosis: cage backing out Post-op diagnosis: same Procedure Done: Removal of deep hardware from the spine Surgeon: Warren Narayan Anesthesia: General Estimated blood loss (mL): 10 Condition: stable Disposition: PACU Procedure: Removal of deep hardware from the spine Patient was brought to the operative suite after undergoing anesthesia was placed in the prone position. All areas of injury are well-padded. Patient was then prepped and draped in usual fashion. Skin is made using previous skin incision. The dissection was brought down through the scar tissue the wayne and screws were identified in the left side. The caps from the screws were removed. The wayne was removed. And then dissection through scar tissue was made and the nerve was reflected medially. The cage was then identified. Once the cage was identified it was dissected around and retractor and pen herrera placed around the cage. The extraction device was attached onto the cage. And the cage was gently pulled out. Once the cage was removed the dissipates inspected there was fusion mass around the cage. That was present. The wound was then irrigated bone graft that was in the cage was then packed back into the disc space. Wound s were irrigated and closed with Stratus fix and 2-0 Vicryl and nylon suture. Sterile dressings were applied patient was transferred to the PACU in stable condition.
[2021-01-11] MEDS: HYDROcodone-acetaminophen 5-325 mg Tablet 1 TAB PO ×2 (10:20→10:50)
--- NOTE | 2021-01-11 14:31 | ANE.PACU2 ---
Inpatient post-anesthesia follow up: Airway intact: Yes Vital signs: Temperature 97.0 F Pulse Rate 72 Respiratory Rate 18 Blood Pressure 136/80 Pulse Oximetry 98 Oxygen Delivery Me thod Room Air Oxygen Flow Rate 6 Fraction of Inspir ed Oxygen Hydration adequate: Yes Nausea and vomiting: No Pain level: 2 Mental status: Baseline
== END 2021-01-11 10:54 | disposition home or self-care (01) ==
PROVIDERS: PCP Physician Assistant; Visit Provider Orthopaedic Surgery
PROC: (CPT 22612; principal; 2021-01-11 07:00)
DX: T84.296A Other mechanical complication of internal fixation device of vertebrae, initial encounter (principal); J44.9 Chronic obstructive pulmonary disease, unspecified; I25.119 Atherosclerotic heart disease of native coronary artery with unspecified angina pectoris; I10 Essential (primary) hypertension; E66.01 Morbid (severe) obesity due to excess calories; Z68.36 Body mass index [BMI] 36.0-36.9, adult; F17.210 Nicotine dependence, cigarettes, uncomplicated
CPT/HCPCS: 20680; 72100; 76000; J0330; J0690; J2250; J2370; J2550; J2704; J2710; J2930; J3010; J3490; J7030

== ENCOUNTER → 2021-03-15 10:42 | Outpatient (BNVA) | payer MEDICAID, SELFPAY | PROVIDERS: PCP Physician Assistant; Visit Provider Orthopaedic Surgery | DX: M48.062 Spinal stenosis, lumbar region with neurogenic claudication (principal); Z48.89 Encounter for other specified surgical aftercare | CPT/HCPCS: 72100 ==

== ENCOUNTER 2021-04-10 12:23 | Emergency (ER) | payer MEDICAID, SELFPAY ==
[2021-04-10 12:33] VITALS: BP 142/74; PULSE 111; RESP 20; TEMP 36.7; O2SAT 95; BMI 36.6
--- NOTE | 2021-04-10 12:44 | XRR_ITS ---
PROCEDURE INFORMATION: Exam: XR Lumbosacral Spine Exam date and time: 04/10/2021 12:44 PM Age: 50 years old Clinical indication: Injury or trauma; Fall; Blunt trauma (contusions or hematomas); Prior surgery; Additional info: Fall, history of spinal surgeries, pain TECHNIQUE: Imaging protocol: XR of the lumbosacral spine. Views: 2 or 3 views. COMPARISON: CR XR lumbar spine 2-3V* [id number] 03/15/2021 10:48 AM FINDINGS: Bones/joints: Posterior spinal fusion device at L4-L5 which is intact without fracture. Minimal grade 1 anterolisthesis of L4 on L5. Otherwise normal alignment of the lumbar spine. The vertebral body heights are maintained. Soft tissues: Unremarkable. XR/XR lumbar spine 2-3V* [id number] IMPRESSION: No acute findings. Sequela of posterior spinal fusion device at L4-L5.
--- NOTE | 2021-04-10 12:48 | W.ED.FALL ---
HPI - Fall General: Chief Complaint: Fall Stated Complaint: back pain Time Seen by Provider: 04/10/21 12:24 History of Present Illness: HPI Narrative: Ms. Decker is a 50-year-old lady with a significant past medical history of spinal stenosis status post multiple back surgeries, psychiatric disorder, substance abuse who presents to the emergency department with a chief complaint of back pain. Symptom onset was approximately 30 minutes ago and described as acute after fall. The patient reports she was walking and caught her knee on a box or cabinet which caused her to fall to the floor. She immediately had severe low back pain. No head strike no head strike or loss of consciousness. Patient denies preceding dizziness, lightheadedness, chest pain, shortness of breath. The patient reports associated radiation of symptoms down her legs. She endorses weakness and other changes however she was able to bear weight and turn pivot while exiting her car. They rate the intensity of their symptoms as severe and describe the character as intermittent shooting/throbbing. Overall the course of symptoms has been persistent and is worse with movement. The patient has had similar episodes in the past. The patient endorses being out of her normal pain medications and over the past week is used marijuana and methamphetamine. She reports that at times this helps with her pain. There are no other specific exacerbating or alleviating factors reported. Review of Systems General: Reports: 10 or more systems reviewed and unremarkable except in HPI and below Narrative: CONSTITUTIONAL: denies fever, fatigue EYES - denies pain, denies loss of vision EARS - denies ear issues. NOSE - denies congestion or rhinorrhea. THROAT - denies sore throat or difficulty swallowing. CARDIOVASCULAR - denies chest pain and palpitations RESPIRATORY - denies shortness of breath and cough GASTROINTESTINAL - denies abdominal pain, no nausea vomiting, no changes in bowel habits GENITOURINARY - denies dysuria or urinary frequency. No loss of urinary continence MUSCULOSKELETAL- see HPI SKIN - denies rashes or new changed skin lesions NEUROLOGIC -see HPI HEMATOLOGIC/LYMPHATIC - denies easy bruising or lymphadenopathy. PSYCH ? patient reports baseline psychiatric symptoms. Patient denies suicidal or homicidal ideation or plan. [facility] ED PFSH: Medical History Adjustment disorder with depressed mood Lumbar stenosis with neurogenic claudication Morbid obesity with BMI of 45.0-49.9, adult Spinal stenosis of lumbar region with radiculopathy Spondylolisthesis, lumbar region Synovial cyst of lumbar spine Surgical History History of cholecystectomy History of tubal ligation Family History Mother Diabetes Father Diabetes Denies family history of Dementia Cancer Social History Smoking and tobacco status: current every day smoker cigarettes Packs smoked per day: 1 Years cigarettes smoked: 42 Quit status (tobacco): has tried quititng Number of times tried to quit tobacco: 10 Second hand smoke exposure: Yes Alcohol intake: never Housing: House service: No Current occupational status: employed Current occupation: [employer] Female Reproductive History: Date of last menstrual period: 10/04/20 Physical Exam Narrative: EXAM NARRATIVE: GENERAL/CONSTITUTIONAL - anxious appearance, mild to moderate distress due to pain. Eyes - PERRL, no conjunctival injection ENMT - Atraumatic external nose and ears. Moist mucous membranes NECK - supple. trachea midline CARDIOVASCULAR - regular rate and rhythm. Peripheral pulses 2+ and equal RESPIRATORY -clear to auscultation bilaterally. No retractions or accessory muscle use. ABDOMEN/GI - Nontender/Nondistended. No tenderness to percussion or evidence of peritonitis MSK - Extremities without obvious deformity or tenderness to palpation SKIN - Warm, Dry NEURO - alert and appropriately oriented. Reports decrease in sensation in bilateral lower extremities circumferentially mid thigh down not consistent with dermatomal distribution. With distraction the patient had response to sharp stimuli throughout multiple dermatomal distributions including the feet. PSYCH - anxious appearance, mildly tangential at times though easily redirectable Course ED course: - Patient was seen and evaluated by me at bedside - Patient placed on cardiac monitors, IV access obtained - Initial evaluation notable for distressed appearance, patient reports pain. Initially patient reporting inability to move lower extremities. Mild tenderness palpation of the paraspinal and spinal region in the lumbar spine - The patient has a complex history and clinical presentation is challenging as she seems somewhat disorganized. Ativan ordered - Imaging notable for no acute fracture identified - The patient was found to be resting comfortably multiple times. She responded well to the Ativan however her response was greater than expected, supplemental oxygen was required and patient was serially reobserved. - When awake the patient did report continued pain though perhaps mild relief. 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 The patient verbalized understanding and felt safe for discharge. - Patient discharged in satisfactory condition. Vital Signs: Vital signs: Vital Signs Temperature 98.0 F 04/10/21 12:33 Pulse Rate 78 04/10/21 15:52 Respiratory Rate 18 04/10/21 15:52 Blood Pressure 125/93 04/10/21 15:52 Pulse Oximetry 98 04/10/21 15:52 MDM - Fall Medical Records: Attestation: I reviewed the patient's medical records. Lab Data: Attestation: I reviewed the patient's lab results. Imaging Data^: Xray Ortho: Attestation: I personally reviewed and interpreted this imaging study as follows: My impression: No acute fracture identified, hardware appears grossly intact Radiologist's impression: No acute findings. Sequela of posterior spinal fusion device at L4-L5. Discharge Plan Discharge Patient Disposition: Home Clinical Impression: Acute exacerbation of chronic low back pain, Substance abuse Condition: Stable Prescriptions: No Action bupropion HCl [Wellbutrin XL] 150 mg tablet extended release 24 hr 150 mg PO QAM Qty: 30 RF: 2 escitalopram oxalate 10 mg tablet 10 mg PO DAILY 30 Days Qty: 30 RF: 2 propranolol 10 mg tablet 10 mg PO BID 30 Days Qty: 60 RF: 2 naproxen sodium [Aleve] 220 mg capsule 440 mg PO BID PRN (Reason: Pain) RF: 0 divalproex [Depakote] 500 mg tablet,delayed release (DR/EC) 500 mg PO BID RF: 0 diazepam [Valium] 5 mg tablet 5 mg PO BID PRN (Reason: anxiety) 1 Days Qty: 2 RF: 0 hydrocodone-acetaminophen 5-325 mg tablet 1 - 2 tab PO .Q4-6H PRN (Reason: pain) 7 Days Qty: 40 RF: 0 naproxen 500 mg Tablet 500 mg PO Q12H 30 Days Qty: 60 RF: 1 aspirin 81 mg Tablet,Delayed Release (Dr/Ec) 81 mg PO DAILY 30 Days Qty: 30 RF: 1 cyclobenzaprine 10 mg tablet 10 mg PO TID PRN (Reason: Muscle Spasm) 30 Days Qty: 90 RF: 0 isosorbide mononitrate 60 mg tablet extended release 24 hr 60 mg PO DAILY 30 Days Qty: 30 RF: 1 cyanocobalamin (vitamin B-12) 1,000 mcg/mL solution 1,000 mcg IM Q30D 30 Days Qty: 1 RF: 1 nitroglycerin 0.4 mg tablet, sublingual 0.4 mg sublingual PRN 30 Days Qty: 30 RF: 1 gabapentin 300 mg capsule 300 mg PO TID 30 Days Qty: 90 RF: 1 lisinopril-hydrochlorothiazide 20-25 mg tablet 1 tab PO DAILY 30 Days Qty: 30 RF: 1 albuterol sulfate [ProAir HFA] 90 mcg/actuation HFA aerosol inhaler 2 puff INHALATION Q4H PRN (Reason: Shortness Of Breath) 30 Days Qty: 1 RF: 1 loratadine [Claritin] 10 mg Tablet 10 mg PO DAILY 30 Days Qty: 30 RF: 1 esomeprazole magnesium [Nexium 24HR] 20 mg Capsule,Delayed Release(Dr/Ec) 20 mg PO DAILY PRN (Reason: unknown) 30 Days Qty: 30 RF: 1 CoQ-10 1 tab PO DAILY 30 Days Qty: 30 RF: 1 methocarbamol 750 mg PO TID 30 Days Qty: 90 RF: 1 hydrocodone-acetaminophen 5-325 mg tablet 1 tab PO Q6H PRN (Reason: pain) Qty: 10 RF: 0 Discharge Orders: Discharge ED (Routine); Ordered 04/10/21 Ordered By: Roel Jiménez Referrals: Dai Stark PA [Primary Care Provider] - Discharge Diet: Usual diet Discharge Activity: Resume usual activity Patient Instructions: Cannabis Abuse (ED), Methamphetamine Abuse (ED), Back Pain (ED), Opioid Safety Activity Restrictions/Additional Instructions: Thank you for visiting the emergency department. You were seen and evaluated for back pain after fall. The exact cause of this is likely related to soft tissue bruising has no acute fracture was identified on x-ray. You have a complex history and substance abuse puts you at high risk for or worse. It is essential that you develop an adequate treatment plan with your primary care provider. Please return to the emergency department if you experience worsening of your current symptoms, inability to control urination or bowel movements, or anything else that you are concerned about and feel needs emergency department evaluation. Please stop abusing drugs. Coding Level of Care Code ED Budget Report Clerk for Alfredo Al
[2021-04-10 12:58] VITALS: BP 127/94; PULSE 98; RESP 18; O2SAT 97
[2021-04-10] MEDS: LORazepam 2 mg/mL INJ 1 mL 1 MG IVP (13:04)
[2021-04-10] MEDS: ketorolac 30 mg/mL INJ 15 MG IVP (13:05)
[2021-04-10 13:37] VITALS: BP 142/83; PULSE 84; RESP 18; O2SAT 100
[2021-04-10] MEDS: lidocaine 5% Patch 1 PATCH TOPICAL (13:38)
[2021-04-10] MEDS: methocarbamol 750 mg Tablet PO (13:38)
[2021-04-10] MEDS: acetaminophen 325 mg Tablet 650 MG PO (15:04)
[2021-04-10 15:08] VITALS: BP 150/103; PULSE 89; RESP 18; O2SAT 97
[2021-04-10 15:52] VITALS: BP 125/93; PULSE 78; RESP 18; O2SAT 98
== END 2021-04-10 16:05 | disposition home or self-care (01) ==
PROVIDERS: Emergency Provider Emergency Medicine; PCP Physician Assistant
DX: G89.29 Other chronic pain (principal); M54.5 Low back pain; F19.10 Other psychoactive substance abuse, uncomplicated; F17.210 Nicotine dependence, cigarettes, uncomplicated
CPT/HCPCS: 72100; 96374; 96375; 99284; J1885; J2060

== ENCOUNTER → 2021-04-26 10:07 | Outpatient (BNVA) | payer MEDICAID, SELFPAY | PROVIDERS: PCP Physician Assistant; Visit Provider Orthopaedic Surgery | DX: Z47.89 Encounter for other orthopedic aftercare (principal); Z98.1 Arthrodesis status | CPT/HCPCS: 72100 ==

== ENCOUNTER → 2021-05-19 14:21 | Outpatient (BNVA) | payer MEDICAID, SELFPAY | PROVIDERS: PCP Physician Assistant; Visit Provider Orthopaedic Surgery | DX: M48.062 Spinal stenosis, lumbar region with neurogenic claudication (principal) | CPT/HCPCS: 72120 ==

== ENCOUNTER 2021-07-01 13:09 | Outpatient (CLI) | payer MEDICAID, SELFPAY ==
--- NOTE | 2021-07-01 13:45 | MR_ITS ---
WS: [id number] MRI CERVICAL SPINE NONCONTRAST HISTORY: M54.2 - Cervicalgia COMPARISON: None available. Technique: Multiplanar, multisequence noncontrast imaging of the cervical spine. Straightening of the normal cervical lordosis. Degenerative disc disease at all levels and osteophyte s. Increased signal in the cervical cord at the C5 and C6 levels. There is mild posterior displacement o f the cervical cord due to disc disease at C5-6. Craniocervical junction, C1 and C2 relationship, odontoid process and soft tissues are normal. C2-C3: Small central disc protrusion and foraminal osteophytes. No stenosis. Mild facet arthritis. C3-C4: Central disc protrusion and small foraminal osteophytes. No stenosis. C4-C5: Mild annular disc bulge with a central disc protrusion. Bilateral facet joint arthritis. Mild bilateral foraminal stenosis. C5-C6: There is a large central disc extrusion. Extrusion extends superior and inferior disc level ex tending over a length of 13 mm. Transverse diameter of 6.5 mm at the disc level. There is complete ef facement of ventral CSF and deformity of the cervical cord. Moderate central with moderate to severe bilateral foraminal stenosis and facet arthritis. C6-C7: Small central disc protrusion and foraminal osteophytes and facet arthritis. Moderate to sever e central and bilateral foraminal stenosis and facet arthritis. C7-T1: Normal. Paraspinal soft tissue are normal. MR/MR cervical spin wo con* [id number] IMPRESSION: 1. Large central disc extrusion at C5-6. Extrusion extends over length of 13 m m and extends cephalad and caudad to the disc level. Complete effacement of janee tral CSF with displacement of the cord. Moderate central with moderate to sever e bilateral foraminal stenosis at C5-6. 2. Moderate to severe central and bilateral foraminal stenosis at C6-7 due to combination of disc and osteophyte and facet disease. 3. Mild cervical myelomalacia at the C5 and C6 levels. 4. Mild bilateral foraminal stenosis at C4-5.
--- NOTE | 2021-07-01 14:30 | MR_ITS ---
WS: [id number] MRI LUMBAR SPINE NONCONTRAST HISTORY: M48.062 - Spinal stenosis, lumbar region with neurogenic claudication. Prior surgeries. Wors ening pain. COMPARISON: 09/24/2020 TECHNIQUE: Sagittal and axial multisequence imaging is submitted. Mild RIGHT curvature lumbar spine. L5 for anterolisthesis by 3 mm. Similar to the prior examination. Slight increase in the lumbar lordo sis. No marrow edema or fracture is identified. Posterior lumbar fusion hardware is noted at the L4-5 level. Extensive postsurgical changes are noted in the paraspinal soft tissues at the L4-5 level. Pr eviously described postoperative fluid collection in the subcutaneous soft tissues has resolved. Mild disc desiccation throughout the lumbar spine. Conus terminates normally at L1-2 disc level. L1-L2: Mild RIGHT foraminal narrowing with bilateral facet arthritis. L2-L3: Bilateral foraminal stenosis. Moderate facet joint arthritis with mild encroachment into the t hecal sac. No change. L3-L4: Artifact is noted at the disc level from the prior surgery instrumentation. Encroachment into the thecal sac with marked facet and ligamentum flavum arthritis. There is at least moderate central and bilateral subarticular recess stenosis and foraminal stenosis. The extent of the stenosis appears to have progressed since the prior study. L4-L5: Artifact from the surgery continues. Thecal sac is poorly visualized. Suspect there is probabl y arachnoiditis with at least moderate bilateral foraminal narrowing. Increased soft tissue extends i nto the foramina, LEFT greater than RIGHT. Increased soft tissue may be scar tissue or recurrent disc . Cannot differentiate without contrast. L5-S1: Marked facet joint arthritis. Moderate bilateral foraminal stenosis. MR/MR lumbar spine wo con* [id number] IMPRESSION: 1. Quality of this examination is compromised by orthopedic hardware and body habitus. 2. Posterior lumbar fusion at L4-5 with arachnoiditis as before. 3. Progression of central and bilateral foraminal stenosis at the L3-4 level. There is at least moderate central, bilateral subarticular and foraminal stenos is. 4. At least moderate bilateral foraminal stenosis at L4-5, LEFT greater than R IGHT. 5. Interval resolution of the postoperative seroma in the soft tissues at the L4-5 level.
== END 2021-07-01 13:10 | disposition home or self-care (01) ==
PROVIDERS: PCP Physician Assistant; Visit Provider Orthopaedic Surgery
DX: M48.062 Spinal stenosis, lumbar region with neurogenic claudication (principal); M43.26 Fusion of spine, lumbar region; G03.9 Meningitis, unspecified; M48.061 Spinal stenosis, lumbar region without neurogenic claudication; M50.222 Other cervical disc displacement at C5-C6 level; M48.02 Spinal stenosis, cervical region; G95.89 Other specified diseases of spinal cord
CPT/HCPCS: 72141; 72148

== ENCOUNTER → 2021-07-26 15:25 | Outpatient (BNVA) | payer MEDICAID, SELFPAY | PROVIDERS: PCP Physician Assistant; Visit Provider Surgery | DX: Z20.822 Contact with and (suspected) exposure to COVID-19 (principal); Z01.812 Encounter for preprocedural laboratory examination | CPT/HCPCS: 87635 ==

== ENCOUNTER → 2021-08-03 16:31 | Outpatient (BNVA) | payer MEDICAID, SELFPAY | PROVIDERS: PCP Physician Assistant; Visit Provider Surgery | DX: Z20.822 Contact with and (suspected) exposure to COVID-19 (principal); Z01.812 Encounter for preprocedural laboratory examination | CPT/HCPCS: 87635 ==

== ENCOUNTER → 2021-08-04 09:00 | Outpatient (BNVA) | payer MEDICAID, SELFPAY | PROVIDERS: PCP Physician Assistant; Visit Provider Social Worker | DX: F33.2 Major depressive disorder, recurrent severe without psychotic features (principal); F43.12 Post-traumatic stress disorder, chronic | CPT/HCPCS: 90834 ==

== ENCOUNTER → 2021-08-05 13:42 | Outpatient (BNVA) | payer MEDICAID, SELFPAY | PROVIDERS: PCP Physician Assistant; Visit Provider Orthopaedic Surgery | DX: Z20.822 Contact with and (suspected) exposure to COVID-19 (principal) | CPT/HCPCS: 87635 ==

== ENCOUNTER 2021-08-08 11:06 | Day surgery (SDC) | payer MEDICAID, SELFPAY ==
[2021-08-02 11:32] VITALS: BMI 43.2
[2021-08-08] VITALS (7 sets, daily range): BP systolic 142–169; BP diastolic 84–100; PULSE 72–98; RESP 12–18; TEMP 36.2–36.6; O2SAT 94–97
--- NOTE | 2021-08-08 11:12 | P.HP_ITS ---
Same Day Surgery H&P Indication for Procedure/HPI DATE OF PROCEDURE: August 08, 2021 CHIEF COMPLAINT/INDICATIONFOR SURGICAL PROCEDURE: colonoscopy with excision / cautery SCC in situ PREOP DIAGNOSIS: cage backing out PLANNED PROCEDRUE: Operation Date: 05/25/21 12:45 Proposed Procedures p Excision of skin lesion left forearm 22031 R22.30(Left) - Greyson Keenan MD s Colonoscopy 29901 Z12.11(Not Applicable) - Greyson Keenan MD Operation Date: 08/08/21 11:00 Proposed Procedures p Excision of Left Arm Skin Lesion 44293 R22.30(Left) - Greyson Keenan MD s Colonoscopy 60796 Z12.11(Not Applicable) - Greyson Keenan MD Medications/Allergies* Home Medications Medication Instructions Recorded Confirmed Type divalproex 500 mg tablet,delayed 500 mg PO BID 03/15/21 08/05/21 History release amlodipine 5 mg PO DAILY 08/02/21 08/05/21 History gabapentin 600 mg PO TID 08/02/21 08/05/21 History methocarbamol 500 mg PO TID 08/02/21 08/05/21 History prazosin 1 mg PO QPM 08/02/21 08/05/21 History nitroglycerin 0.4 mg SUBLINGUAL PRN PRN 08/05/21 08/05/21 History Allergies/Adverse Reactions Allergy/AdvReac Type Severity Reaction Status Date / Time codeine Allergy Severe ALGY-Anaphy Verified 08/05/21 13:00 laxis pseudoephedrine Allergy Intermediate ALGY-Hives Verified 08/05/21 13:00 [From [facility]] pravastatin Allergy Unknown Verified 08/05/21 13:00 [id number]-[id number] Reductase Allergy Unknown Verified 08/05/21 13:00 Inhibitor [Ywfanbs-Zdq-Tqd Reductase Inhibitor] Opioids - Morphine Analogues AdvReac Intermediate ADR-Vomitin Verified 08/05/21 13:00 g Pertinent History/Comorbid Conditions* Medical History (Updated 05/19/21 @ 16:15 by Warren Narayan DO) Adjustment disorder with depressed mood Lumbar stenosis with neurogenic claudication Morbid obesity with BMI of 45.0-49.9, adult Spinal stenosis of lumbar region with radiculopathy Spondylolisthesis, lumbar region Synovial cyst of lumbar spine Surgical History (Updated 02/26/20 @ 11:46 by Aissatou Zhong APRN) History of cholecystectomy History of tubal ligation Family History (Updated 02/25/20 @ 15:53 by Juan Valdivia) Diabetes Mother Father Denies family history of Dementia Cancer Social History Smoking and tobacco status: current every day smoker cigarettes Packs smoked per day: 1 Years cigarettes smoked: 42 Quit status (tobacco): has tried quititng Number of times tried to quit tobacco: 10 Second hand smoke exposure: Yes Alcohol intake: never Housing: House service: No Current occupational status: employed 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
--- NOTE | 2021-08-08 12:00 | ANES.PREANE2 ---
Pre-Anesthetic Assessment Pre-Anesthetic Assessment: Height/Weight: Height 1.65 m Weight 117.934 kg Preop Diagnosis: diagnostic, skin lesion left forearm Proposed Procedure: Operation Date: 05/25/21 12:45 Proposed Procedures p Excision of skin lesion left forearm 93910 R22.30(Left) - Greyson Keenan MD s Colonoscopy 95850 Z12.11(Not Applicable) - Greyson Keenan MD Operation Date: 08/08/21 11:00 Proposed Procedures p Excision of Left Arm Skin Lesion 40005 R22.30(Left) - Greyson Keenan MD s Colonoscopy 38378 Z12.11(Not Applicable) - Greyson Keenan MD Familial anesthetic complications: None Was Beta Mame taken within 24 hours: N/A Was Clonidine taken within 24 hours: N/A Last intake: > 8hrs Social: Social History: Tobacco and No alcohol Comment: former meth use Exam: Pre-Anes Outpt Exam: alert, oriented x 3, clear to auscultation bilaterally and regular rate & rhythm Airway: MP: 3 Dentition: Full CV/HEM: CV/HEM: Angina (Stable), CAD and HTN Metabolic: Metabolic: Morbid obesity Anesthetic Plan: ASA status: 3 Anesthesia: MAC Risk of > 500 ml blood loss (7ml/kg in children): No PFSH Anesthesia PFSH: Medical History Adjustment disorder with depressed mood Lumbar stenosis with neurogenic claudication Morbid obesity with BMI of 45.0-49.9, adult Spinal stenosis of lumbar region with radiculopathy Spondylolisthesis, lumbar region Synovial cyst of lumbar spine Surgical History History of cholecystectomy History of tubal ligation Family History Mother Diabetes Father Diabetes Denies family history of Dementia Cancer Social History Smoking and tobacco status: current every day smoker cigarettes Packs smoked per day: 1 Years cigarettes smoked: 42 Quit status (tobacco): has tried quititng Number of times tried to quit tobacco: 10 Second hand smoke exposure: Yes Alcohol intake: never Housing: House service: No Current occupational status: employed 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
[2021-08-08] MEDS: sodium chloride 0.9% 1,000 ML 30 ML IV (12:06)
[2021-08-08 12:07] LABS: OR HCG Qualitative Urine Negative (Negative)
[2021-08-08] MEDS: lidocaine 1% INJ 20 mL INJECTION (13:43)
--- NOTE | 2021-08-08 14:04 | SUR.PHASEI ---
PT HAD A MASS REMOVED FROM LT FOREARM DRESSING D/I WITH DORINA COMPRESSION DRESSING DISTAL FINGERS PINK WARM PT ALSO HAD A COLONOSCOPY, VSS , PT AWAKES AND VERBALIZED NO PAIN OR NAUSEA.
--- NOTE | 2021-08-08 14:08 | PM.OP ---
Operative Report Date of procedure: August 08, 2021 Pre-op Diagnosis: 1. Screening colonoscopy Pre-op Diagnosis: 2. 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 Sigmoid diverticulosis, recommend follow-up colonoscopy in 5 years due to poor bowel prep 2. 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 Colonoscopy past splenic flexure without biopsy 2. Excision of squamous cell carcinoma in situ left forearm measuring 6 x 4 cm 3. 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 The colonoscope was introduced and advanced up to cecum with ileocecal valve and appendicular orifice was visualized. The colon prep was POOR. Cecum: Normal Ascending colon: Normal Transverse colon: Normal Descending colon: Normal Sigmoid colon: Normal Rectum: Normal The colonoscope was withdrawn. A 5-year follow-up was recommended due to poor prep, I was able to irrigate and visualize the mucosa and there were no large masses noted but small polyps could be missed. The patient was then placed in the supine position and the left forearm was prepped and draped in a sterile manner. 1% lidocaine with 0.5% Marcaine was infiltrated around the affected area in the left forearm. Using a 15 blade an elliptical longitudinal 9 x 6 cm incision was made, subcutaneous tissue was divided using electrocautery down to the muscular fascia and the specimen was excised completely. Using 2-0 silk, short stitch was placed superiorly and a long stitch was placed laterally. After excision of the mass the wound measured 9 x 6 x 1.5 cm. Using electrocautery superior and inferior subcutaneous flaps were raised and the subcutaneous tissues were approximated in layers using interrupted 3-0 Vicryl suture. The skin was closed using running subcuticular 4-0 Monocryl suture and Dermabond. The wound was covered with sterile dressing and Kerlix gauze. The patient was transferred to recovery room in stable condition.
--- NOTE | 2021-08-08 14:31 | ANE.PACU2 ---
Inpatient post-anesthesia follow up: Airway intact: Yes Vital signs: Temperature 98 F Pulse Rate 77 Respiratory Rate 15 Blood Pressure 161/100 Pulse Oximetry 94 Oxygen Delivery Me thod Room Air Oxygen Flow Rate Fraction of Inspir ed Oxygen Hydration adequate: Yes Nausea and vomiting: No Pain level: 2 Mental status: Baseline
== END 2021-08-08 15:20 | disposition home or self-care (01) ==
PROVIDERS: PCP Physician Assistant; Visit Provider Surgery
PROC: (CPT 11603; principal; 2021-08-08 10:50)
PROC: 0DJD8ZZ Inspection of Lower Intestinal Tract, Via Natural or Artificial Opening Endoscopic (ICD-10-PCS; CPT 45378; 2021-08-08 10:50)
DX: Z12.11 Encounter for screening for malignant neoplasm of colon (principal); K57.30 Diverticulosis of large intestine without perforation or abscess without bleeding; C76.42 Malignant neoplasm of left upper limb; F17.210 Nicotine dependence, cigarettes, uncomplicated; Z90.49 Acquired absence of other specified parts of digestive tract; E66.01 Morbid (severe) obesity due to excess calories; Z68.42 Body mass index [BMI] 45.0-49.9, adult; Z88.5 Allergy status to narcotic agent
CPT/HCPCS: 11603; 45378; 81025; 84703; 88304; J2704; J3010; J3490; J7030

== ENCOUNTER → 2021-08-10 08:03 | Outpatient (BNVA) | payer MEDICAID, SELFPAY | PROVIDERS: PCP Physician Assistant; Visit Provider Psychiatry & Neurology Psychiatry | DX: F33.2 Major depressive disorder, recurrent severe without psychotic features (principal); F43.12 Post-traumatic stress disorder, chronic; F17.200 Nicotine dependence, unspecified, uncomplicated; F12.20 Cannabis dependence, uncomplicated | CPT/HCPCS: 87635; 99214 ==

== ENCOUNTER 2021-08-15 15:11 | Observation (INO) | payer MEDICAID, SELFPAY ==
[2021-08-05 13:15] VITALS: BMI 43.2
[2021-08-15] VITALS (39 sets, daily range): BP systolic 133–185; BP diastolic 68–124; PULSE 67–94; RESP 11–20; TEMP 36.6–37; O2SAT 91–99; BMI 43.2
--- NOTE | 2021-08-15 | XR_ITS ---
WS: [id number] INTRAOPERATIVE TECHNIQUE: 5 Spot fluoroscopic images for intraoperative purposes. FLUOROSCOPY TIME: 9.2 seconds CLINICAL INFORMATION: acdf COMPARISON: None. FINDINGS: Postoperative changes ACDF C5-C7 with partial corpectomy and interbody strut graft. Hardware appears in good position. Endotracheal tube. XR/XR cervical spine 3V* [id number] IMPRESSION: Images obtained for intraoperative purposes.
--- NOTE | 2021-08-15 | SCC_ITS ---
Procedure Done: 1. Anterior diskectomy C5/6 2. Anterior discectomy C6/7 3. corpectomy C6 greater than 50% 4. Insertion of Corpectomy cage C5-C7 5. Instrumentation with anterior plate from C5-C7 6. Use of allograft 7. use of autograft 24.3 seconds of fluoroscopic guidance, for a cumulative dose of 2.84 mGy, was provided to Dr. Narayan by the radiology department. C-arm images of the cervical spine were saved for the patient's permanent record. [facility]
[2021-08-15] MEDS: sodium chloride 0.9% 1,000 ML 30 ML IV (07:20)
--- NOTE | 2021-08-15 07:52 | P.ANESASSM_ITS ---
Pre-Anesthetic Assessment Pre-Anesthetic Assessment: Height/Weight: Height 1.65 m Weight 117.934 kg Temp Pulse Resp BP Pulse Ox 98.2 F 70 18 179/100 96 08/15/21 06:56 08/15/21 06:56 08/15/21 06:56 08/15/21 06:56 08/15/21 06:56 Preop Diagnosis: Cervical myelopathy Proposed Procedure: Operation Date: 08/15/21 08:20 Proposed Procedures p C6 Corpectomy 10162 [id number](x3) M47.12(Not Applicable) - Warren Narayan DO s Anterior Cervical Discectomy & Fusion C5/6 C6/7(Not Applicable) - Warren Narayan DO Was Beta Mame taken within 24 hours: Yes Was Clonidine taken within 24 hours: N/A Last intake: Intake Last Liquid Date 08/14/21 Last Liquid Time 20:00 Last Solid Date 08/14/21 Last Solid Time 20:00 Social: Social History: Tobacco and No alcohol Exam: Pre-Anes Outpt Exam: alert, oriented x 3 and regular rate & rhythm Airway: Submandibular: WNL Cervical ROM: Other (Reasonable ROM, mild pain--no radiation or exacerbation of sxs with extensioin) MP: 2 Dentition: Chipped Pulmonary: Pulmonary: COPD CV/HEM: CV/HEM: CAD and HTN Metabolic: Metabolic: Morbid obesity Musc/skel: Musc/skel: Lower Back Pain and OA/DJD Neuropsych: Neuropsych: Anxiety and Depression Comments: Chronic pain Anesthetic Plan: ASA status: 3 Anesthesia: General Risk of > 500 ml bloo d loss (7ml/kg in children): No PFSH Anesthesia PFSH: Medical History Adjustment disorder with depressed mood Benign essential hypertension COPD (chronic obstructive pulmonary disease) Hypercholesterolemia Lumbar stenosis with neurogenic claudication Morbid obesity with BMI of 45.0-49.9, adult Spinal stenosis of lumbar region with radiculopathy Spondylolisthesis, lumbar region Synovial cyst of lumbar spine Surgical History (Updated 08/11/21 @ 12:25 by Greyson Keenan MD) H/O local excision of skin lesion (08/08/21) History of cholecystectomy History of lumbar laminectomy for spinal cord decompression History of tubal ligation Hx of spinal fusion Status post colonoscopy (08/08/21) Family History Mother Diabetes Father Diabetes Denies family history of Dementia Cancer Social History Quit status (tobacco): has tried quititng Number of times tried to quit tobacco: 10 Second hand smoke exposure: Yes Alcohol intake: never Housing: House service: No Current occupational status: employed 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
--- NOTE | 2021-08-15 08:01 | W.PM.OPSUD ---
Surgery/Procedure H&P Update DATE OF PROCEDURE: August 15, 2021 DATE H&P PERFORMED: 08/10/21 H&P UPDATE INFORMATION: I have reviewed H&P completed within last 30 days, I have examined patient prior to procedure and No changes to prior documentation PREOP DIAGNOSIS: Cervical myelopathy PLANNED PROCEDURE: Operation Date: 08/15/21 08:20 Proposed Procedures p C6 Corpectomy 81267 [id number] 80056 70998 08955(x3) M47.12(Not Applicable) - DO poonam Dumont Anterior Cervical Discectomy & Fusion C5/6 C6/7(Not Applicable) - Warren Narayan DO
[2021-08-15] MEDS: vancomycin 1,000 MG SDV 1000 MG XX (09:52)
--- NOTE | 2021-08-15 10:58 | PM.OP ---
Operative Report Date of procedure: August 15, 2021 Pre-op Diagnosis: Cervical spondylosis with myelopathy Post-op diagnosis: same Procedure Done: 1. Anterior diskectomy C5/6 2. Anterior discectomy C6/7 3. corpectomy C6 greater than 50% 4. Insertion of Corpectomy cage C5-C7 5. Instrumentation with anterior plate from C5-C7 6. Use of allograft 7. use of autograft Surgeon: Warren Narayan Technical Support Representative: Toby Lopez Technical Support Representative: The surgical product sales consultant, Toby Lopez, KELSEY was needed for his expertise under the microscope. He was important and necessary throughout the procedure to complete in a safe and timely manner. He assisted with patient positioning prepping and draping tissue retraction suctioning of the operative field protection of the dural sac and tissue closure Estimated blood loss (mL): 20 Condition: stable Disposition: PACU Procedure: 1. Anterior diskectomy C5/6 2. Anterior discectomy C6/7 3. corpectomy C6 greater than 50% 4. Insertion of Corpectomy cage C5-C7 5. Instrumentation with anterior plate from C5-C7 6. Use of allograft 7. use of autograft The patient was taken to the operating room, where he underwent general endotracheal anesthesia without complications. He was then positioned supine on the operating table, and all areas of impingement were well padded. The arms were carefully padded and tucked at his sides. A roll was placed between the shoulder blades.. An x-ray was done to determine the appropriate level for the skin incision. The entire neck was then sterilely prepped and draped in the usual fashion. Neuromonitoring was attached prior to prepping. A transverse skin incision was made and carried down to the platysma muscle. This was then split in line with its fibers. Blunt dissection was carried down medial to the carotid sheath and lateral to the trachea and esophagus until the anterior cervical spine was visualized. A needle was placed into a disc and an x-ray was done to determine its location. The longus colli muscles were then elevated bilaterally with the electrocautery unit. Self-retaining retractors were placed deep to the longus colli muscle. Attention was brought to the C5 to C7 level that was confirmed on x-ray. A caspar pin was placed into the C5 vertebrae and the C7 vertebrae. The disk spaces was then distracted. The microscope was then brought in. A radical anterior discectomies were performed at C5/6 and C6/7. This included complete removal of the anterior annulus, nucleus, and posterior annulus. The posterior longitudinal ligament was removed as were the posterior osteophytes. Foraminotomies were then accomplished bilaterally. This was done using a high speed alberto, kerrison rongeurs and curretes Once all of this was accomplished, the curved currette was used to check for any residual compression. The central canal was wide open as were the foramen. A high-speed bur was used to remove the cartilaginous endplates C5 inferiorly and superiorly at C7 Bleeding cancellous bone was exposed. The C6 corpectomy was then performed. High speed bur was used to take out the lateral aspect of the C6 vertebrae. The rongeur was used to remove bone. The disc bases were identified and curved curette was used to identify the posterior aspect of the vertebrae and then a 2 oh Kerrison was used to remove the vertebrae down to the posterior longitudinal ligament. The posterior longitudinal ligament was exposed from the superior aspect of C7 up to the inferior aspect of C5. This was then removed using the Kerrison rongeur dura was exposed from superior aspect of C7 up to the inferior aspect of C5. The space was then irrigated a trial was measured the appropriate size cage was then inserted the bone graft from the cage was allograft osteoamp as well as some of the bone from the corpectomy. The Lazbuddie pins were removed. Bone wax was used to prevent any bleeding from occurring at the pin sites. The appropriate size anterior cervical locking plate was chosen and bent into gentle lordosis. Two screws were then placed into each of the vertebral bodies at C5 and C7. There was excellent purchase. A final x-ray was done confirming good position of the hardware and Cages. The locking screws were then applied, also with excellent purchase. Following a final copious irrigation, there was good hemostasis and no dural leaks. The carotid pulse was strong. The wounds were then closed in layers using 2-0 Vicryl suture for the platysma muscle, 2-0 Vicryl suture for the subcutaneous tissue, and 4-0 monocryl suture in a subcuticular skin closure. Glue was placed followed by application of a sterile dressing. The drain was hooked to bulb suction. A soft collar was applied. The patient was then carefully returned to the supine position on his hospital bed where he was reversed and extubated and taken to the recovery room having tolerated the procedure well.
--- NOTE | 2021-08-15 11:01 | XR_ITS ---
WS: [id number] CERVICAL SPINE TECHNIQUE: 3 views of the cervical spine CLINICAL INFORMATION: AP/LAT Post op Fusion COMPARISON: None. FINDINGS: Straightening of the normal cervical lordosis. ACDF C5-C7 with partial corpectomy and interbody strut graft. Hardware appears in good position. Normal for postoperative purposes. XR/XR cervical spine 3V* [id number] IMPRESSION: Postoperative ACDF C5-C7 with partial corpectomy and interbody strut graft.
[2021-08-15] MEDS: fentaNYL 50 mcg/mL INJ 2mL IVP ×2 (11:18→11:46)
[2021-08-15] MEDS: ondansetron 2 mg/ML SDV 2 mL 4 MG IVP ×2 (13:03→19:59)
[2021-08-15] MEDS: HYDROcodone-acetaminophen 5-325 mg Tablet 1 TAB PO (13:04)
--- NOTE | 2021-08-15 15:01 | ANE.PACU2 ---
Inpatient post-anesthesia follow up: Airway intact: Yes Vital signs: Temperature 98.6 F Pulse Rate 89 Respiratory Rate 16 Blood Pressure 160/106 Pulse Oximetry 94 Oxygen Delivery Me thod Room Air Oxygen Flow Rate 2 Fraction of Inspir ed Oxygen Hydration adequate: Yes Nausea and vomiting: No Pain level: 3 Mental status: Baseline
[2021-08-15] MEDS: ketorolac 30 mg/mL INJ IVP (16:38)
[2021-08-15] MEDS: gabapentin 300 mg Capsule 600 MG PO ×2 (16:39→21:12)
[2021-08-15] MEDS: lactated ringers 1,000 ML 90 ML IV (16:39)
[2021-08-15] MEDS: docusate sodium 100 mg Capsule PO (17:24)
[2021-08-15] MEDS: morphine 4 mg/mL SDV 1 mL 2 MG IVP (19:54)
--- NOTE | 2021-08-15 20:26 | PC.NURSE ---
Received transfer of care of this patient at this time. Patient in bed/resting. Rates pain a 01/10/ PRN administered recently. IV patent LR infusing at 90mL/hr. Cervical brace in place. No needs voiced at this time.
[2021-08-15] MEDS: methocarbamol 500 mg Tablet PO (21:11)
[2021-08-15] MEDS: propranolol 20 mg Tablet 10 MG PO (21:11)
[2021-08-15] MEDS: escitalopram 10 mg Tablet PO (21:11)
[2021-08-15] MEDS: isosorbide mononitrate ER 60 mg Tablet PO (21:11)
[2021-08-15] MEDS: prazosin 1 mg Capsule PO (21:12)
[2021-08-15] MEDS: amlodipine 5 mg Tablet PO (21:12)
[2021-08-15] MEDS: divalproex DR 500 mg Tablet PO (21:15)
[2021-08-15] MEDS: HYDROcodone-acetaminophen 5-325 mg Tablet PO (21:35)
[2021-08-16] VITALS (7 sets, daily range): BP systolic 90–155; BP diastolic 52–77; PULSE 63–95; RESP 15–18; TEMP 36.5–36.8; O2SAT 93–96
[2021-08-16] MEDS: morphine 4 mg/mL SDV 1 mL 2 MG IVP ×2 (00:19→04:21)
--- NOTE | 2021-08-16 00:23 | PC.NURSE ---
Patient awake /on phone. Rates pain at a 9/10/ PRN administered at this time..No other needs voiced at this time.
[2021-08-16] MEDS: HYDROcodone-acetaminophen 5-325 mg Tablet PO ×3 (02:21→10:26)
[2021-08-16] MEDS: ondansetron 2 mg/ML SDV 2 mL 4 MG IVP (04:22)
[2021-08-16] MEDS: lactated ringers 1,000 ML 90 ML IV (04:24)
[2021-08-16] MEDS: buPROPion XL (24 HR) 150 mg Tablet PO (06:06)
[2021-08-16] MEDS: enoxaparin 40 mg/0.4 mL Syringe SUBCUT (06:06)
--- NOTE | 2021-08-16 07:39 | PM.PN ---
Subjective Subjective: Interval history: POD 1 Pt resting comfortably. Mild Swallowing discomfort. Reports changes with arm and feet. Denies SOB/CP or GEIGER Vitals/I&O/Wt Last Vital Signs Temp 97.7 F 08/16/21 07:30 Pulse 65 08/16/21 07:30 Resp 18 08/16/21 07:30 BP 100/61 08/16/21 07:30 Pulse Ox 93 08/16/21 07:30 08/15/21 08/16/21 08/16/21 22:59 06:59 14:59 Intake Total 1300 / 1560 1060 / 2620 Output Total 200 / 425 Balance 1100 / 1135 1060 / 2195 Weight last 48 hrs Weight 260 lb Physical Exam Narrative: EXAM NARRATIVE: AOx 3 [place] J collar on, Fires in BUE/BLE with good strength, Good sensation to light touch, incision c/d Urinary Catheter Management^: Harden: Cath Placed During This Visit: yes, but has since been removed by the nurse Reason for Continuing Indwelling Catheter: Other Urinary Catheter Date of Insertion: 08/15/21 Urinary Catheter Time of Insertion: 09:42 Date Urinary Catheter Removed: 08/15/21 Time Urinary Catheter Discontinued: 15:00 A&P Assessment and plan (1) Status post cervical spinal fusion: Physical Therapy to [facility], Home later this AM. RTC in 1-2 wks. Status: Acute Attestations Medical Necessity Statement*: home today Coding Level of Care Code Acute Post Acute Care Nurse for Chg Fwd Diagnoses Status post cervical spinal fusion Z98.1
--- NOTE | 2021-08-16 08:22 | PM.DCS ---
Discharge Providers Date of Admission: 08/15/21 15:11 Date of Discharge: August 16, 2021 Attending Provider at Admission: Warren Narayan DO Attending Provider at Discharge: Warren Narayan DO Primary Care Provider: Dai Stark Diagnoses at Discharge Discharge Diagnosis (1) Status post cervical spinal fusion: Status: Acute Reason for Visit Reason for Visit: Spondylosis with myelopathy Hospital Course Hospital Course Patient was admitted on 08/15/2021 she had a C6 corpectomy and C5-C7 ACDF. Her stay was uneventful. She is discharged on 08/16/2021 Physical Exam Urinary Catheter Management^: Harden: Cath Placed During This Visit: yes, but has since been removed by the nurse Reason for Continuing Indwelling Catheter: Other Urinary Catheter Date of Insertion: 08/15/21 Urinary Catheter Time of Insertion: 09:42 Date Urinary Catheter Removed: 08/15/21 Time Urinary Catheter Discontinued: 15:00 Discharge Data Data Completed and Pending: Completed Studies During Hospitalization Category Date Time Status XR cervical spine 3V* [id number] Routine Exams 08/15/21 Completed XR cervical spine 3V* [id number] Routine Exams 08/15/21 11:01 Completed Vitals: Last Vital Signs Temp 97.7 F 08/16/21 07:30 Pulse 65 08/16/21 07:30 Resp 18 08/16/21 07:30 BP 100/61 08/16/21 07:30 Pulse Ox 93 08/16/21 07:30 Discharge Plan Discharge Patient Disposition: Home Condition: Stable Prescriptions: New hydrocodone-acetaminophen 10-325 mg tablet 1 - 2 tab PO Q4H PRN (Reason: pain) 7 Days Qty: 40 RF: 0 Continued bupropion HCl [Wellbutrin XL] 150 mg tablet extended release 24 hr 150 mg PO QAM Qty: 30 RF: 2 prazosin 1 mg capsule 1 mg PO .HS Qty: 30 RF: 2 propranolol 10 mg tablet 10 mg PO BID 30 Days Qty: 60 RF: 2 divalproex [Depakote] 500 mg tablet,delayed release (DR/EC) 500 mg PO BID RF: 0 amlodipine 5 mg Tablet 5 mg PO DAILY RF: 0 gabapentin 300 mg capsule 600 mg PO TID RF: 0 methocarbamol 500 mg PO TID RF: 0 hydrocodone-acetaminophen 5-325 mg tablet 1 tab PO Q6H PRN (Reason: pain) Qty: 20 RF: 0 ondansetron HCl [Zofran] 4 mg tablet 4 mg PO Q6H PRN (Reason: nausea and vomiting) Qty: 20 RF: 0 docusate sodium [Colace] 100 mg capsule 100 mg PO BID Qty: 30 RF: 0 aspirin 81 mg Tablet,Delayed Release (Dr/Ec) 81 mg PO DAILY 30 Days Qty: 30 RF: 1 isosorbide mononitrate 60 mg tablet extended release 24 hr 60 mg PO DAILY 30 Days Qty: 30 RF: 1 cyanocobalamin (vitamin B-12) 1,000 mcg/mL solution 1,000 mcg IM Q30D 30 Days Qty: 1 RF: 1 lisinopril-hydrochlorothiazide 20-25 mg tablet 1 tab PO DAILY 30 Days Qty: 30 RF: 1 albuterol sulfate [ProAir HFA] 90 mcg/actuation HFA aerosol inhaler 2 puff INHALATION Q4H PRN (Reason: Shortness Of Breath) 30 Days Qty: 1 RF: 1 loratadine [Claritin] 10 mg Tablet 10 mg PO DAILY 30 Days Qty: 30 RF: 1 nitroglycerin 0.4 mg tablet, sublingual 0.4 mg sublingual PRN PRN (Reason: chest pain) RF: 0 Lexapro 10 mg tablet 10 mg PO DAILY RF: 0 Discharge Orders: Discharge Order (Routine); Ordered 08/16/21 Ordered By: Warren Narayan Other Ambulatory Orders: DME: Walker (Order) Location: None Selected Ordered By: Warren Narayan Discharge Diet: Advance as tolerated Discharge Activity: Limit activity as instructed Patient Instructions: Opioid Safety Activity Restrictions/Additional Instructions: Thank you for choosing [facility] for your care! The following is a list of instructions, from your provider, to follow upon your discharge to ensure you have the optimal recovery from your recent injury or surgery. Anterior Cervical Discectomy and Fusion: What to Expect at Home Your Recovery Follow-up care is a santos part of your treatment and safety. Be sure to make and go to all appointments, and call your doctor if you are having problems. If you do not already have a follow-up appointment made, call office in the next 1-3 days to make follow up appointment for 2 weeks at [phone]. It is also a good idea to know your test results and keep a list of the medicines you take. You can expect your neck to feel stiff or sore after surgery. This should improve in the weeks after surgery. But it may take 4 to 6 months for you to get better completely. You may have trouble sitting or standing in one position for very long and may need pain medicine in the weeks after your surgery. It may take 4 to 6 weeks to get back to your usual activities, but it may depend on what kind of surgery you had. Your throat will feel sore and it may be difficult to swallow for the first 3 days after your surgery. As long as you can get liquids down without difficulty, this should slowly improve, otherwise call our office or seek medical attention if it becomes increasingly difficult to get anything down including liquids. Avoid hot liquids for first 3-5 days. Soothing foods/liquids such as jello, pudding, and luke warm soups are recommended until swallowing improves. Staying elevated will also help, it's advised you keep propped up at while sleeping to help reduce the swelling. You may use an ice pack directly on your incision or around it on the front of your neck, using a cloth to protect your skin; and a heating pad to the back of your neck as needed. Do not use over the counter anti-inflammatory medications (Ibuprofen, Motrin, Aleve, Advil, etc) Taking these meds after having a fusion can delay fusion rates, we recommend you avoid them for the first 3 [address] after your surgery[address]. Narayan may advise you to work with a physical therapist to strengthen the muscles around your neck and back - this will be discussed at your follow - up appointments. The pain or numbness you were having in your arms before surgery should get better or go away completely. This care sheet gives you a general idea about how long it will take for you to recover. But each person recovers at a different pace. Follow the steps below to get better as quickly as possible. How can you care for yourself at home? Activity ? Rest when you feel tired. Getting enough sleep will help you recover. ? Try to walk each day. Start by walking a little more than you did the day before. Bit by bit, increase the amount you walk. Walking boosts blood flow and helps prevent pneumonia and constipation. Walking may also decrease your muscle soreness after surgery. ? No lifting anything that is more that 5 pounds. This may include heavy grocery bags and milk containers, a heavy briefcase or backpack, cat litter or dog food bags, a child, or a vacuum quill cleaner. ? Avoid strenuous activities, such as bicycle riding, jogging, weightlifting, or aerobic exercise, until your doctor says it is okay. ? Do not drive until your follow-up visit after your surgery, or until your doctor says it isokay. ? Avoid taking long car trips for 2 to 4 weeks after surgery. Your neck may become tired and painful from sitting too long in one position. ? You will probably need to take 4 to 6 weeks off from work. It depends on the type of work you do and how you feel. ? You may have sex as soon as you feel able, but avoid positions that put stress on your neck or cause pain. Diet ? You can eat your normal diet. If your stomach is upset, try bland, low-fat foods like plain rice, broiled chicken, toast, and yogurt ? Drink plenty of fluids. If you have kidney, heart, or liver disease and have to limit fluids, talk with your doctor before you increase the amount of fluids you drink. ? You may notice that your bowel movements are not regular right after your surgery. This is common. Try to avoid constipation and straining with bowel movements. You may want to take a fiber supplement every day. If you have not had a bowel movement after a couple of days, ask your doctor about taking a mild laxative. Medicines ? Take pain medicines exactly as directed. 1. If Dr. Narayan gave you a prescription medicine for pain, take lt as prescribed. 2. Do not take two or more pain medicines at the same time unless the doctor told you to. Many pain medicines have acetaminophen, which is Tylenol. Too much acetaminophen {Tylenol) can be harmful. 3. If you think your pain pill is making you sick to your stomach: 4. Take your pills after meals (unless your doctor has told you not to). 5. Ask your Dr. for a different pain pill. Incisioncare ? Remove your dressing 48hours after your surgery. Ok to shower and get the incision wet. Do not overtly wash your incision. When done, pad dry, leave open to air thereafter. Avoid creams and ointments directly on your incision. ? Your sutures in the incision will dissolve and fall out on their own. ? Keep the area clean and dry. You may cover it with a gauze bandage if it weeps or rubs against clothing; if you choose to do this, change the dressing everyday. Other instructions ? Use a heating pad, hot water bottle, or gentle massage on your back to reduce stiffness. Avoid putting heat on your incision When should you call for help? ? Call 911 anytime you think you may need emergency care. For example, call if: ? You pass out (lose consciousness). ? You have sudden chest pain and shortness of breath, or you cough upblood. ? You cannot swallow. ? You have severe pain in your neck or back. ? Call your Dr. or seek immediate medical care if: ? You have pain that does not get better after you take pain pills. ? You have loose stitches, or your incision comes open. ? You have blood or fluid draining from the incision. ? You have signs of infection, such as: 1. Increased pain, swelling, warmth, or redness. 2. Red streaks leading from the site. 3. Pus draining from the site. 4. Swollen lymph nodes in your neck or armpits. 5. A fever. ? You have severe pain in your arms. ? You have new or increased weakness or numbness in your arms. ? Watch closely for any changes in your health, and be sure to contact your doctor if: ? You do not have a bowel movement after taking a laxative. Discharge Attestations Time Spent in Discharge Care*: less than 30 min Quality Metrics Clinical Quality Measures During this hospital stay, did patient experience: None Coding Level of Care Code Acute [facility] DC note Diagnoses Status post cervical spinal fusion Z98.1
[2021-08-16] MEDS: divalproex DR 500 mg Tablet PO (08:49)
[2021-08-16] MEDS: methocarbamol 500 mg Tablet PO (08:49)
[2021-08-16] MEDS: propranolol 20 mg Tablet 10 MG PO (08:50)
[2021-08-16] MEDS: docusate sodium 100 mg Capsule PO (08:50)
[2021-08-16] MEDS: gabapentin 300 mg Capsule 600 MG PO (08:50)
[2021-08-16] MEDS: aspirin 81 mg EC Tablet PO (08:50)
[2021-08-16] MEDS: loratadine 10 mg Tablet PO (08:50)
[2021-08-16] MEDS: ketorolac 30 mg/mL INJ IVP (08:50)
--- NOTE | 2021-08-16 10:07 | PC.CHAP ---
Pastoral Care Encounter/Spiritual Assessment Type of Contact [] Declined breaker oiler visit [] Patient/Family/Request visit [] Outpatient visit [] Follow-up visit [] Physician referral [] Code/Alert [x] Routine visit [] Staff referral [] Actively dying [] Patient sleeping [] Family support [] [] Out of room [] Palliative care [] [] Receiving care in room [] Pre-surgical visit [] Trauma [] Long length of stay [] ICU visit [] Other: Relational/Emotional Strength [x] Patient feels connected with others/family/visitors/staff [] Distress [] Loneliness/isolation [] Abandonment Spirituality of Patient [x] Person of Ellen [x] Attends Sabianist of their Ellen [x] Believes in Prayer [] Reads Bible or Tenriism materials [] There are Spiritual issues to be addressed Clinical Sociologist Interventions [x] Prayer [x] Active listening [x] Non-anxious presence [x] Spiritual/emotional support [] Crisis/trauma care [x] Spiritual counseling [] Bereavement support [] Provided bereavement packet [] Provided Bible/devotional materials [] Provided toy/stuffed animal, coloring book to patient or family member [] Provided Communion [] Anointing/[place] [] Salvation [x] Completed spiritual assessment [] Other: Impact on Illness or Injury [] Angry [] Fearful [] Anxious [] Often cries [] Exhaustion [x] Unable to work [] Unable to attend hoahaoism [] Unable to walk/stand [] Unable to read [x] Unable to drive [] Unable to eat/drink [] Unable to sleep [] Unable to be with family [] Patient intubated [] Other: Summary Pt explained that in the past year and a half she has had medical problems which has left her with an inability to work and in great pain. 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 She was in constant pain, lost her ability to work, had family problems, and had come to the point considering taking her own life. Instead she was able to have surgery and is hoping on health improvement. She stated she has been clean for 30 years but in an instant she tossed that out the window and used again. We discussed these issues on an spiritual level and breaker oiler tried to provide some careers counsellor. Nurse came in for care but prior to leaving breaker oiler offered prayer and was gladly accepted. Time spent with patient 20m
--- NOTE | 2021-08-16 13:27 | PC.NURSE ---
patient given discharge instructions and patient verbalized understanding. patient taken to private vehicle via wheelchair by staff.
== END 2021-08-16 13:28 | disposition home or self-care (01) ==
LOC: MEDSURG 15:12
PROVIDERS: Admitting Provider Orthopaedic Surgery; PCP Physician Assistant; Visit Provider Orthopaedic Surgery
PROC: (CPT 20551; principal; 2021-08-15 08:10)
PROC: 0RB30ZZ Excision of Cervical Vertebral Disc, Open Approach (ICD-10-PCS; CPT 22551; 2021-08-15 08:10)
DX: M47.12 Other spondylosis with myelopathy, cervical region (principal); J44.9 Chronic obstructive pulmonary disease, unspecified; I25.10 Atherosclerotic heart disease of native coronary artery without angina pectoris; I10 Essential (primary) hypertension; E66.01 Morbid (severe) obesity due to excess calories; Z68.41 Body mass index [BMI] 40.0-44.9, adult; F41.9 Anxiety disorder, unspecified; F32.A Depression, unspecified; F17.200 Nicotine dependence, unspecified, uncomplicated; E78.00 Pure hypercholesterolemia, unspecified; Z79.82 Long term (current) use of aspirin
CPT/HCPCS: 20551 ×2; 20930; 20936; 22552 ×2; 22845 ×2; 22854 ×2; 51702; 72040; 76000; 96372; 97161; 97530; 97760; C1713; C9359; G0378; J0690; J1100; J1170; J1200; J1650; J1885; J2270; J2405; J2704; J3010; J3370; J3490; J7030; L0174

== ENCOUNTER → 2021-09-29 10:49 | Outpatient (BNVA) | payer MEDICAID, SELFPAY | PROVIDERS: PCP Physician Assistant; Visit Provider Orthopaedic Surgery | DX: Z98.1 Arthrodesis status (principal) | CPT/HCPCS: 72040 ==

== ENCOUNTER → 2021-11-02 11:03 | Outpatient (BNVA) | payer MEDICAID, SELFPAY | PROVIDERS: PCP Physician Assistant; Visit Provider Psychiatry & Neurology Psychiatry | DX: F43.12 Post-traumatic stress disorder, chronic (principal); F33.2 Major depressive disorder, recurrent severe without psychotic features; F12.20 Cannabis dependence, uncomplicated; F17.200 Nicotine dependence, unspecified, uncomplicated | CPT/HCPCS: 99214 ==

== ENCOUNTER → 2021-11-16 07:57 | Outpatient (BNVA) | payer MEDICAID, SELFPAY | PROVIDERS: PCP Physician Assistant; Visit Provider Social Worker | DX: F33.2 Major depressive disorder, recurrent severe without psychotic features (principal); F43.12 Post-traumatic stress disorder, chronic; F32.9 Major depressive disorder, single episode, unspecified | CPT/HCPCS: 90834 ==

== ENCOUNTER → 2021-11-22 12:50 | Outpatient (BNVA) | payer MEDICAID, SELFPAY | PROVIDERS: PCP Physician Assistant; Visit Provider Orthopaedic Surgery | DX: M54.50 Low back pain, unspecified (principal); Z98.1 Arthrodesis status | CPT/HCPCS: 72040; 72100 ==

== ENCOUNTER → 2021-12-23 10:07 | Outpatient (BNVA) | payer MEDICAID, SELFPAY | PROVIDERS: PCP Physician Assistant; Visit Provider Social Worker | DX: F33.2 Major depressive disorder, recurrent severe without psychotic features (principal); F43.12 Post-traumatic stress disorder, chronic | CPT/HCPCS: 90837; 90834 ==

== ENCOUNTER 2022-01-10 10:24 | Outpatient (CLI) | payer MEDICAID, SELFPAY ==
--- NOTE | 2022-01-10 11:30 | IR_ITS ---
WS: [id number] MYELOGRAM LUMBAR SPINE Fluoroscopic guided lumbar myelogram CLINICAL INFORMATION: M54.50 - Low back pain, unspecified COMPARISON: None. TECHNIQUE: The procedure, including risks, benefits, and complications, were discussed with the patie nt who agreed to proceed. A timeout was performed to confirm correct patient, procedure, and site. Using sterile technique, the patient was prepped and draped in the usual sterile fashion. After admin istration of local anesthesia using 1% preservative-free lidocaine and using fluoroscopic guidance, a 22-gauge 5 cm spinal needle was advanced into the subarachnoid space at the L1-L2 level. Subsequentl y 12 cc of Omnipaque 240 was administered into the thecal sac. The needle was removed and hemostasis was achieved. Spot fluoroscopic images were obtained. FLUOROSCOPIC TIME: 0.8 # of spot films: 14 Spot fluoroscopic images demonstrate prior postoperative changes pedicle screw fixation L4-L5 with in terconnecting rods. Hardware appears intact. Interconnecting rods appear intact. Laminectomy defects L4 and L5. Moderate to severe central canal stenosis L3-L4 with partial obstruction of contrast flow. Apparent narrowing of the thecal sac on the radiographic images. Exaggeration of the normal lumbar l ordosis. Cholecystectomy clips. Mild disc space narrowing L3-L4 L4-L5 and L5-S1. Trace anterolisthesi s L4 on L5 measuring [address] myelogram report for additional detail. IR/IR myelogram sp lumbar [id number] IMPRESSION: 1. Uncomplicated lumbar myelogram. 2. Prior postoperative changes pedicle screw fixation L4-L5 with interconnecti ng rods. Hardware appears intact. 3. Slight anterolisthesis L4 on L5 measuring 3 mm. 4. Moderate to severe central canal stenosis L3-L4 with partial obstruction of contrast flow and apparent narrowing of the thecal sac. Please see CT myelogram report for additional detail.
--- NOTE | 2022-01-10 11:30 | CT_ITS ---
WS: [id number] CT MYELOGRAM LUMBAR SPINE TECHNIQUE: CT myelogram of the lumbar spine with coronal and sagittal reformatted images. CLINICAL INFORMATION: M54.50 - Low back pain, unspecified COMPARISON: MRI 2020 DLP: 1235.[address] scans at [facility] use at least one of these dose optimization techniques: automated e xposure control; mA and/or kV adjustment per patient size (includes targeted exams where dose is matc hed to clinical indication); or iterative reconstruction. FINDINGS: Mild lumbar curve. No acute compression. Pedicle screw fixation L4-L5 with interconnecting rods. Hard greenwood appears intact. Slight anterolisthesis L4 on L5 measuring 3.3 mm L1-L2: Mild annular bulging. Spinal canal and foramen are patent. L2-L3: Mild annular bulging. Slight effacement of ventral thecal sac. Mild RIGHT and no significant L EFT foraminal narrowing. Moderate facet arthropathy. Spinal canal is patent. L3-L4: Moderate central canal stenosis at this level with crowding of the cauda equina nerve rootlets . Advanced facet arthropathy ligamentum flavum hypertrophy. Prominent dorsal epidural fat. Moderate R IGHT and mild LEFT foraminal narrowing. Narrowing of the subarticular recess bilaterally at this leve l. L4-L5: Grade 1 anterolisthesis measuring 3.3 mm. Slight effacement of ventral thecal sac. Mild LEFT a nd no significant RIGHT foraminal narrowing at this level. Mild clumping of the cauda equina nerve ro otlets compatible with arachnoiditis similar to the prior examinations posterior to the L4 vertebral body. Laminectomy defects with dorsolateral bone graft material. L5-S1: Pedicle screw fixation with laminectomy defects. Slight effacement of the ventral thecal sac. Moderate to advanced facet arthropathy. Mild LEFT greater than RIGHT foraminal narrowing. Cholecystectomy clips. Adrenal glands are normal. Normal caliber abdominal aorta. Aortic calcificatio n CT/CT lumbar spine w con [id number] IMPRESSION: 1. Mild lumbar curve. Pedicle screw fixation L4-L5 with interconnecting rods. Hardware appears intact. Associated laminectomy defects. 2. Moderate central canal stenosis L3-L4 due to disc bulging with facet arthro curry and prominent dorsal epidural fat. This is similar to the prior MRI. Impi ngement subarticular recess bilaterally. 3. Grade 1 anterolisthesis L4 on L5 with clumping of the cauda equina nerve r ootlets compatible with arachnoiditis similar to the prior MRI. 4. Moderate RIGHT L3-L4 foraminal narrowing. 5. Mild LEFT L4-L5 foraminal narrowing.
[2022-01-10] MEDS: iohexol 240 mg/mL 50 mL Btl INTRATHECA (11:41)
== END 2022-01-10 10:25 | disposition home or self-care (01) ==
LOC: RAD 10:27
PROVIDERS: PCP Physician Assistant; Visit Provider Orthopaedic Surgery
DX: M48.061 Spinal stenosis, lumbar region without neurogenic claudication (principal); M51.26 Other intervertebral disc displacement, lumbar region; M47.896 Other spondylosis, lumbar region; Z98.890 Other specified postprocedural states
CPT/HCPCS: 62304; 72120; 72132

== ENCOUNTER → 2022-01-11 13:28 | Outpatient (BNVA) | payer MEDICAID, SELFPAY | PROVIDERS: PCP Physician Assistant; Referring Provider Orthopaedic Surgery; Visit Provider Specialist | DX: G56.03 Carpal tunnel syndrome, bilateral upper limbs (principal); Z87.891 Personal history of nicotine dependence | CPT/HCPCS: 95910 ==

== ENCOUNTER → 2022-01-19 14:04 | Outpatient (BNVA) | payer MEDICAID, SELFPAY | PROVIDERS: PCP Physician Assistant; Visit Provider Social Worker | DX: F33.2 Major depressive disorder, recurrent severe without psychotic features (principal); F39 Unspecified mood [affective] disorder | CPT/HCPCS: 90837; 90834 ==

== ENCOUNTER 2022-01-24 20:14 | Emergency (ER) | payer MEDICAID, SELFPAY ==
[2022-01-24 20:20] VITALS: BP 152/91; PULSE 69; RESP 18; TEMP 36.6; O2SAT 98; BMI 36.1
--- NOTE | 2022-01-24 20:31 | CTR_ITS ---
PROCEDURE INFORMATION: Exam: CT Lumbar Spine Without Contrast Exam date and time: 01/24/2022 8:48 PM Age: 51 years old Clinical indication: Injury or trauma; Fall; Blunt trauma (contusions or hematomas); Injury date: 01/24/2022; Prior surgery; Surgery date: 6+ months; Surgery type: Lumbar surgery x 3 TECHNIQUE: Imaging protocol: Computed tomography images of the lumbar spine without contrast. Radiation optimization: All CT scans at this facility use at least one of these dose optimization techniques: automated exposure control; mA and/or kV adjustment per patient size (includes targeted exams where dose is matched to clinical indication); or iterative reconstruction. COMPARISON: CT lumbar spine w con [id number] 01/10/2022 11:28 AM RADIATION DOSE METRICS: Total DLP (mGy-cm): 4140.28 FINDINGS: Vertebrae: Intact posterior spinal fusion hardware and decompression changes at L4-L5. No acute fracture. Normal alignment. Kidneys and ureters: Punctate nonobstructing stone in the left kidney series 604, image 27. Soft tissues: Unremarkable. CT/CT lumbar spine wo con* [id number] IMPRESSION: 1. No acute findings. 2. Punctate nonobstructing stone in the left kidney.
--- NOTE | 2022-01-24 20:46 | W.ED.FALL ---
HPI - Fall General: Chief Complaint: Fall Stated Complaint: fall Time Seen by Provider: 01/24/22 20:15 Source: patient and EMS Mode of arrival: EMS Limitations: no limitations History of Present Illness: 51-year-old female who states that she was walking down her steps out of her porch which are actually 3 cinderblocks and when the cinderblocks rolled and she fell states she fell directly on her lower back just before arrival. She does have a history of a lumbar surgery roughly a year ago and she is having severe lower back pain. States pain is currently a 6 out of 10 she denies any other injuries denies hitting her head denies any neck pain. She was able to stand at the scene and ambulate. Associated symptoms-after fall: Denies abdominal pain, chest pain, headache(s) or neck pain Review of Systems Const: Denies: fever(s), chills, body aches or change in appetite Eyes: Denies: blurry vision or eye discomfort ENMT: Denies: throat pain or dental pain Card: Denies: chest pain Resp: Denies: dyspnea GI: Denies: abdominal pain, nausea, vomiting or diarrhea : Denies: dysuria Musc: Denies: neck pain or back pain Skin/Breast: Denies: rash Neuro: Denies: headache(s) Psych: Denies: depression Hilario/Lymph: Denies: easy bruising All/Imm: Denies: urticaria PFSH ED PFSH: Medical History Adjustment disorder with depressed mood Asthma Benign essential hypertension Bipolar 1 disorder COPD (chronic obstructive pulmonary disease) Hypercholesterolemia Lumbar stenosis with neurogenic claudication Morbid obesity with BMI of 45.0-49.9, adult Psychiatric care PTSD (post-traumatic stress disorder) Spinal stenosis of lumbar region with radiculopathy Spondylolisthesis, lumbar region Synovial cyst of lumbar spine Surgical History H/O local excision of skin lesion (08/08/21) History of cholecystectomy History of lumbar laminectomy for spinal cord decompression History of tubal ligation Hx of spinal fusion Status post colonoscopy (08/08/21) Family History Mother Diabetes Father Diabetes Denies family history of Dementia Cancer Social History Smoking and tobacco status: former smoker Quit status (tobacco): has tried quititng Number of times tried to quit tobacco: 10 Second hand smoke exposure: Yes Alcohol intake: never Housing: House service: No Current occupational status: employed 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 Physical Exam Const: COMMON NORMALS: no acute distress, patient oriented x3 and healthy appearing HENMT: COMMON NORMALS: normocephalic and atraumatic HEAD & SCALP: normocephalic and atraumatic Eye: COMMON NORMALS: Equal, round and reactive pupils present and EOMs intact bilaterally PUPIL: Yes Equal, round and reactive pupils present Neck/C-Spine: COMMON NORMALS: full ROM and supple Chest: COMMONS NORMALS: normal inspection of the chest and normal palpation of entire chest wall Resp: COMMON NORMALS: normal respiratory effort, No retractions, No use of accessory muscles and clear to auscultation bilaterally AUSCULTATION: clear to auscultation bilaterally Cardio: COMMON NORMALS: regular rate, regular rhythm and No murmurs present (Cardio) RATE: regular rate RHYTHM: regular rhythm GI: COMMON NORMALS: Normal to inspection, nondistended, normoactive bowel sounds present, Soft to palpation, non-tender and no masses PALPATION: Yes Soft to palpation Back/Pelvis: OTHER: Lumbar spine tenderness no deformity Extremity: COMMON NORMALS: normal to inspection and full ROM Neuro: COMMON NORMALS: patient oriented x3, moves all extremities and no focal motor deficits Psych: COMMON NORMALS: mental status grossly normal, Normal thought process present and cooperative THOUGHT PROCESS: Normal thought process present Skin: COMMON NORMALS: no rashes or lesions noted and no wounds GENERAL SKIN EXAM: no rashes or lesions noted Course Vital Signs: Vital signs: Vital Signs Temperature 98.0 F 01/24/22 22:27 Pulse Rate 73 01/24/22 22:27 Respiratory Rate 16 01/24/22 22:27 Blood Pressure 151/74 01/24/22 22:27 Pulse Oximetry 96 01/24/22 22:27 MDM - Fall Medical Decision Making Patient presents here with low back pain from a fall likely contusion CT scan of her lumbar spine and x-ray of her coccyx were both negative she has an appointment actually on with her spine surgeon Dr. Narayan and she has been having back pain since her surgery last year she is well-appearing here she is stable for discharge follow-up PCP and return if worsening. Lab Data Radiology Impressions Lumbar Spine CT 01/24/22 20:31 IMPRESSION: 1. No acute findings. 2. Punctate nonobstructing stone in the left kidney. Coccyx X-Ray 01/24/22 21:18 IMPRESSION: No acute findings. Discharge Plan Discharge Patient Disposition: Home Clinical Impression: Fall Qualifiers: Encounter type: initial encounter Qualified Code(s): W19.XXXA - Unspecified fall, initial encounter Lumbar contusion Qualifiers: Encounter type: initial encounter Qualified Code(s): S30.0XXA - Contusion of lower back and pelvis, initial encounter Condition: Stable Prescriptions: New Naprosyn 500 mg tablet 500 mg PO BID PRN (Reason: pain) Qty: 20 0RF No Action propranolol 10 mg tablet 10 mg PO BID 30 Days Qty: 60 2RF escitalopram oxalate [Lexapro] 20 mg tablet 20 mg PO DAILY Qty: 30 2RF bupropion HCl [Wellbutrin XL] 300 mg tablet extended release 24 hr 300 mg PO QAM Qty: 30 2RF prazosin 1 mg capsule 1 mg PO .HS Qty: 30 2RF ropinirole 2 mg tablet 2 mg PO DAILY Qty: 30 2RF divalproex [Depakote] 500 mg tablet,delayed release (DR/EC) 500 mg PO BID 0RF hydrocodone-acetaminophen 5-325 mg tablet 1 tab PO Q6H PRN (Reason: pain) 7 Days Qty: 40 0RF amlodipine 5 mg Tablet 5 mg PO DAILY 0RF gabapentin 300 mg capsule 600 mg PO TID 0RF methocarbamol 500 mg PO TID 0RF aspirin 81 mg Tablet,Delayed Release (Dr/Ec) 81 mg PO DAILY 30 Days Qty: 30 1RF isosorbide mononitrate 60 mg tablet extended release 24 hr 60 mg PO DAILY 30 Days Qty: 30 1RF cyanocobalamin (vitamin B-12) 1,000 mcg/mL solution 1,000 mcg IM Q30D 30 Days Qty: 1 1RF lisinopril-hydrochlorothiazide 20-25 mg tablet 1 tab PO DAILY 30 Days Qty: 30 1RF albuterol sulfate [ProAir HFA] 90 mcg/actuation HFA aerosol inhaler 2 puff INHALATION Q4H PRN (Reason: Shortness Of Breath) 30 Days Qty: 1 1RF loratadine [Claritin] 10 mg Tablet 10 mg PO DAILY 30 Days Qty: 30 1RF nitroglycerin 0.4 mg tablet, sublingual 0.4 mg sublingual PRN PRN (Reason: chest pain) 0RF Rx Instructions: Every 5 minutes max 3 doses in 15 minutes for anginal pain Discharge Orders: Discharge ED (Routine); Ordered 01/24/22 Ordered By: Master Kowalski Referrals: Dai Stark PA [Primary Care Provider] - Discharge Diet: Advance as tolerated Discharge Activity: Resume usual activity Patient Instructions: Acute Low Back Pain (ED) Coding Level of Care Code 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
--- NOTE | 2022-01-24 21:18 | XRR_ITS ---
PROCEDURE INFORMATION: Exam: XR Sacrum and Coccyx, 2 or More Views Exam date and time: 01/24/2022 9:23 PM Age: 51 years old Clinical indication: Injury or trauma; Fall; Blunt trauma (contusions or hematomas); Prior surgery; Surgery type: Lumbar fusion; Patient HX: Patient tripped walking down steps and fell back onto steps. C/O coccygeal pain. TECHNIQUE: Imaging protocol: XR of the sacrum and coccyx, 2 or more views. COMPARISON: CT lumbar spine wo con* [id number] 01/24/2022 8:48 PM FINDINGS: Bones/joints: Normal. No acute fracture. Soft tissues: Normal. XR/XR coccyx 2V [id number] IMPRESSION: No acute findings.
[2022-01-24 22:27] VITALS: BP 151/74; PULSE 73; RESP 16; TEMP 36.7; O2SAT 96
[2022-01-24] MEDS: ketorolac 30 mg/mL INJ 15 MG IVP (22:31)
[2022-01-24] MEDS: dexamethasone 10 mg/mL INJ IVP (22:31)
[2022-01-25 01:18] VITALS: BP 166/89; PULSE 87; RESP 16; TEMP 36.7; O2SAT 97
== END 2022-01-25 01:19 | disposition home or self-care (01) ==
PROVIDERS: Emergency Provider Emergency Medicine; PCP Physician Assistant
DX: M54.50 Low back pain, unspecified (principal); S30.0XXA Contusion of lower back and pelvis, initial encounter; W19.XXXA Unspecified fall, initial encounter
CPT/HCPCS: 72131; 72220; 96374; 96375; 99284; J1100; J1885

== ENCOUNTER → 2022-01-25 09:30 | Outpatient (BNVA) | payer MEDICAID, SELFPAY | PROVIDERS: PCP Physician Assistant; Visit Provider Psychiatry & Neurology Psychiatry | DX: F33.2 Major depressive disorder, recurrent severe without psychotic features (principal); F43.12 Post-traumatic stress disorder, chronic; F17.200 Nicotine dependence, unspecified, uncomplicated; F12.20 Cannabis dependence, uncomplicated | CPT/HCPCS: 99214 ==

== ENCOUNTER → 2022-01-26 07:54 | Outpatient (BNVA) | payer MEDICAID, SELFPAY | PROVIDERS: PCP Physician Assistant; Visit Provider Orthopaedic Surgery | DX: M48.062 Spinal stenosis, lumbar region with neurogenic claudication (principal); S30.0XXA Contusion of lower back and pelvis, initial encounter; W17.89XA Other fall from one level to another, initial encounter | CPT/HCPCS: 99214 ==

== ENCOUNTER → 2022-02-03 10:42 | Outpatient (BNVA) | payer MEDICAID, SELFPAY | PROVIDERS: PCP Physician Assistant; Visit Provider Social Worker | DX: F32.9 Major depressive disorder, single episode, unspecified (principal); F43.12 Post-traumatic stress disorder, chronic; F33.2 Major depressive disorder, recurrent severe without psychotic features | CPT/HCPCS: 90834 ==

== ENCOUNTER → 2022-02-10 09:17 | Outpatient (BNVA) | payer MEDICAID, SELFPAY | PROVIDERS: PCP Physician Assistant; Visit Provider Social Worker | DX: F32.9 Major depressive disorder, single episode, unspecified (principal); F43.12 Post-traumatic stress disorder, chronic; F33.2 Major depressive disorder, recurrent severe without psychotic features | CPT/HCPCS: 90837; 90834 ==

== ENCOUNTER → 2022-02-23 07:08 | Outpatient (BNVA) | payer MEDICAID, SELFPAY | PROVIDERS: PCP Physician Assistant; Visit Provider Psychiatry & Neurology Psychiatry | DX: F33.2 Major depressive disorder, recurrent severe without psychotic features (principal); F43.12 Post-traumatic stress disorder, chronic; F17.200 Nicotine dependence, unspecified, uncomplicated; F12.20 Cannabis dependence, uncomplicated | CPT/HCPCS: 99213 ==

== ENCOUNTER 2022-03-02 07:37 | Day surgery (SDC) | payer MEDICAID, SELFPAY ==
[2022-03-01 12:44] VITALS: BMI 36.1
[2022-03-02] VITALS (7 sets, daily range): BP systolic 154–175; BP diastolic 81–107; PULSE 56–78; RESP 12–18; TEMP 36.1–36.6; O2SAT 96–100
--- NOTE | 2022-03-02 08:02 | W.PM.OPSFHP ---
Same Day Surgery H&P Indication for Procedure/HPI DATE OF PROCEDURE: March 02, 2022 CHIEF COMPLAINT/INDICATIONFOR SURGICAL PROCEDURE: Left carpal tunnel syndrome, left trigger thumb. Chronic left hand numbness and popping left thumb PREOP DIAGNOSIS: Left Carpal tunnel syndrome/Trigger thumb PLANNED PROCEDURE: Operation Date: 03/02/22 08:00 Proposed Procedures p left carpal tunnel release and left trigger thumb/[id number], [id number] ,M65.312,G56.02(Left) - Juan Rm MD s Trigger Finger Release(Left) - Juan Rm MD The patient is a 51-year-old female with a chronic numbness in her left hand long and ring finger and EMG nerve conduction study showing severe left median neuropathy. She has triggering in her left thumb and painful stitch bonding machine tender. She is here for left carpal tunnel release and left trigger thumb release Medications/Allergies* Home Medications Medication Instructions Recorded Confirmed Type divalproex 500 mg tablet,delayed 500 mg PO BID 03/15/21 03/02/22 History release (Depakote) amlodipine 5 mg tablet 5 mg PO DAILY 08/02/21 03/02/22 History gabapentin 300 mg capsule 600 mg PO TID 08/02/21 03/02/22 History methocarbamol 500 mg PO TID 08/02/21 03/02/22 History nitroglycerin 0.4 mg sublingual 0.4 mg SUBLINGUAL PRN PRN 08/05/21 03/01/22 History tablet ropinirole 2 mg tablet 2 mg PO BEDTIME 03/01/22 03/01/22 History Allergies/Adverse Reactions Allergy/AdvReac Type Severity Reaction Status Date / Time codeine Allergy Severe ALGY-Anaphy Verified 03/01/22 12:37 laxis pseudoephedrine Allergy Intermediate ALGY-Hives Verified 03/01/22 12:37 [From Sudafed] pravastatin Allergy Unknown Verified 03/01/22 12:37 Cnccnzl-ULI-XsI Reductase Allergy Unknown Verified 03/01/22 12:37 Inhibitor [Mbelvnj-Qcq-Qav Reductase Inhibitor] Opioids - Morphine Analogues AdvReac Intermediate ADR-Vomitin Verified 03/01/22 12:37 g Pertinent History/Comorbid Conditions* Medical History (Updated 02/02/22 @ 00:01 by ) Adjustment disorder with depressed mood Asthma Benign essential hypertension Bipolar 1 disorder COPD (chronic obstructive pulmonary disease) Hypercholesterolemia Lumbar stenosis with neurogenic claudication Morbid obesity with BMI of 45.0-49.9, adult Psychiatric care PTSD (post-traumatic stress disorder) Spinal stenosis of lumbar region with radiculopathy Spondylolisthesis, lumbar region Synovial cyst of lumbar spine Surgical History (Updated 08/16/21 @ 07:45 by Toby Lopez PA-C) H/O local excision of skin lesion (08/08/21) History of cholecystectomy History of lumbar laminectomy for spinal cord decompression History of tubal ligation Hx of spinal fusion Status post colonoscopy (08/08/21) Family History (Updated 02/25/20 @ 15:53 by Juan Valdivia) Diabetes Mother Father Denies family history of Dementia Cancer Social History Smoking and tobacco status: former smoker Quit status (tobacco): has tried quititng Number of times tried to quit tobacco: 11 Second hand smoke exposure: Yes Alcohol intake: never Housing: House service: No Current occupational status: employed 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 Recommendations Surgery/Procedure today Coding Level of Care Code Acute [employer] for [employer] Al
[2022-03-02] MEDS: sodium chloride 0.9% 1,000 ML 30 ML IV (08:10)
--- NOTE | 2022-03-02 08:50 | P.ANESASSM_ITS ---
Pre-Anesthetic Assessment Height/Weight: Height 1.65 m Weight 98.43 kg Temp Pulse Resp BP Pulse Ox 97.0 F L 61 18 162/87 97 03/02/22 08:02 03/02/22 08:02 03/02/22 08:02 03/02/22 08:02 03/02/22 08:02 Preop Diagnosis: Left Carpal tunnel syndrome/Trigger thumb Operation Date: 03/02/22 08:00 Proposed Procedures p left carpal tunnel release and left trigger thumb/[id number], [id number] ,M65.312,G56.02(Left) - Juan Rm MD s Trigger Finger Release(Left) - Juan Rm MD Familial anesthetic complications: none Was Beta Mame taken within 24 hours: Yes Was Clonidine taken within 24 hours: N/A Last intake: Intake Last Liquid Date 03/01/22 Last Liquid Time 21:00 Last Solid Date 03/01/22 Last Solid Time 18:00 Social Tobacco and No alcohol Exam alert, oriented x 3, clear to auscultation bilaterally and regular rate & rhythm Airway Submandibular: within normal limits Cervical ROM: Other (Limited s/p cervical fusion ) Mallampati: Class I Dentition: chipped Pulmonary Asthma and Chronic Obstructive Pulmonary Disease CV/HEM Hypertension None reported Hepatic None reported GI Gastroesophageal Reflux Disease (Well controlled ) Metabolic None reported Musc/skel Lower Back Pain and Osteoarthritis/DJD Spinal stenosis Hx of cervical fusion Neuropsych Bipolar, Depression and Neuropathy Adjustment disorder Anesthetic Plan ASA status: 3 (51 year old smoker with hx of asthma, COPD, HTN, PTSD, obesity, and bipolar . ) Anesthesia: Anesthesia Evaluation and Regional (specify below) ([place] block) Other: We discussed risk and benefits of general, MAC, and regional ([place] block) anesthesia including PONV, sore throat (sometimes severe), corneal abrasion, positioning and peripheral nerve injuries, life threatening allergic reaction, LAST, post operative ICU admission requiring prolonged intubation, stroke, heart attack, , failed block, tourniquet pain/discomfort, possibility of recall of intraoperative stimuli including discomfort/pain/pressure. Patient consents to proceed with MAC and [place] block anesthesia with conversion to general if needed. Risk of > 500 ml blood loss (7ml/kg in children): No Medications/Allergies Home Medications Medication Instructions Recorded Confirmed Last Taken Type albuterol sulfate 90 mcg/actuation 2 puff INHALATION Q4H PRN 30 Days 09/10/20 03/01/22 07/19/21 Rx aerosol inhaler (ProAir HFA) #1 unit aspirin 81 mg tablet,delayed 81 mg PO DAILY 30 Days #30 tab 09/10/20 03/01/22 08/14/21 Rx release cyanocobalamin (vitamin B-12) 1,000 mcg IM Q30D 30 Days #1 ml 09/10/20 03/01/22 07/18/21 Rx 1,000 mcg/mL injection solution isosorbide mononitrate 60 mg 60 mg PO DAILY 30 Days #30 tab 09/10/20 03/01/22 08/14/21 Rx tablet,extended release 24 hr lisinopril 20 1 tab PO DAILY 30 Days #30 tab 09/10/20 03/01/22 08/14/21 Rx mg-hydrochlorothiazide 25 mg tablet loratadine 10 mg tablet (Claritin) 10 mg PO DAILY 30 Days #30 tab 09/10/20 0 03/01/22 08/14/21 Rx divalproex 500 mg tablet,delayed 500 mg PO BID 03/15/21 03/01/22 08/14/21 History release (Depakote) amlodipine 5 mg tablet 5 mg PO DAILY 08/02/21 03/01/22 08/13/21 History gabapentin 300 mg capsule 600 mg PO TID 08/02/21 03/01/22 08/14/21 History methocarbamol 500 mg PO TID 08/02/21 03/01/22 08/14/21 History nitroglycerin 0.4 mg sublingual 0.4 mg SUBLINGUAL PRN PRN 08/05/21 03/01/22 Unknown History tablet ondansetron HCl 4 mg tablet 4 mg PO Q8H PRN 7 Days #30 tab 01/26/22 03/01/22 Unknown Rx bupropion HCl 150 mg 24 hr tablet, 150 mg PO QAM #90 tab 02/23/22 03/01/22 Unknown Rx extended release (Wellbutrin XL) buspirone 10 mg tablet 10 mg PO BID #180 tab 02/23/22 03/01/22 Unknown Rx escitalopram oxalate 20 mg tablet 20 mg PO DAILY #90 tab 02/23/22 03/01/22 Unknown Rx (Lexapro) prazosin 1 mg capsule 1 mg PO .HS #90 cap 02/23/22 03/01/22 Unknown Rx propranolol 20 mg tablet 20 mg PO BID #180 tab 02/23/22 03/01/22 Unknown Rx ropinirole 2 mg tablet 2 mg PO BEDTIME 03/01/22 03/01/22 Unknown History Allergies Allergy/AdvReac Type Severity Reaction Status Date / Time codeine Allergy Severe ALGY-Anaphy Verified 03/01/22 12:37 laxis pseudoephedrine Allergy Intermediate ALGY-Hives Verified 03/01/22 12:37 [From Sudafed] pravastatin Allergy Unknown Verified 03/01/22 12:37 Ahrysmz-WNO-WpW Reductase Allergy Unknown Verified 03/01/22 12:37 Inhibitor [Jxqnugo-Rah-Afo Reductase Inhibitor] Opioids - Morphine Analogues AdvReac Intermediate ADR-Vomitin Verified 03/01/22 12:37 g Current Medications Generic Name Dose Route Start Last Admin Trade Name Freq PRN Reason Stop Dose Admin Sodium Chloride 1,000 mls @ 30 mls/hr 03/02/22 07:45 03/02/22 08:10 Sodium Chloride 0.9% IV 03/03/22 07:44 30 mls/hr .Q24H [place] Administration PFSH Anesthesia Medical History Adjustment disorder with depressed mood Asthma Benign essential hypertension Bipolar 1 disorder COPD (chronic obstructive pulmonary disease) Hypercholesterolemia Lumbar stenosis with neurogenic claudication Morbid obesity with BMI of 45.0-49.9, adult Psychiatric care PTSD (post-traumatic stress disorder) Spinal stenosis of lumbar region with radiculopathy Spondylolisthesis, lumbar region Synovial cyst of lumbar spine Surgical History H/O local excision of skin lesion (08/08/21) History of cholecystectomy History of lumbar laminectomy for spinal cord decompression History of tubal ligation Hx of spinal fusion Status post colonoscopy (08/08/21) Family History Mother Diabetes Father Diabetes Denies family history of Dementia Cancer Social History Smoking and tobacco status: former smoker Quit status (tobacco): has tried quititng Number of times tried to quit tobacco: 11 Second hand smoke exposure: Yes Alcohol intake: never Housing: House service: No Current occupational status: employed 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
--- NOTE | 2022-03-02 09:55 | PM.OP ---
Operative Report Date of procedure: March 02, 2022 Pre-op diagnosis: Preop Diagnosis Left Carpal tunnel syndrome/Trigger thumb Post-op diagnosis: same Post-op diagnosis: Same Procedure done: Left carpal tunnel release/left trigger thumb Pathology: none sent Surgeon: Juan Rm Anesthesia: Nerve Block ([place] block) Estimated blood loss (mL): 2 Tourniquet time (min): 24 Findings: No masses or space-occupying lesions were seen within the carpal tunnel. No abnormalities were identified Condition: stable Disposition: PACU Procedure: Patient was taken to the operating room and anesthesia provided by the anesthesia service. She was prepped and draped with the arm exposed. A timeout was performed. A 3 cm long incision was made in line with the fourth ray from the distal edge of the carpal tunnel extending proximally. The subcutaneous fat and palmar fascia was divided with a scalpel blade. Under loupe magnification the ulnar neurovascular bundle was identified distally. A hemostat could be passed under the transverse carpal ligament allowing the distal 25% to be divided. A slotted guide was then passed beneath the transverse carpal ligament and the middle 50% divided. Blunt scissors were then passed over the guide freeing the proximal ligament. A transverse incision was made over the level of a 1 omer in the palm over a distance of approximately a centimeter and a half. Under loupe magnification blunt dissection was accomplished down to the A1 omer. With adequate visualization a scalpel was used to divide the central 8 mm of that structure. Blunt scissors were then used to extend the release approximately 5 mm proximally and 5 mm distally. Tendons were pulled the road and inspected to assure theiehealth. Skin edges along the carpal tunnel infiltrated with 6 cc and the skin edges along the trigger thumb were infiltrated with 4 cc of 0.5%n Marcaine. The skin edges were closed with 3-0 Prolene compressive dressings were applied. Sterile dressings were applied. The patient was taken to the recovery room in stable condition
--- NOTE | 2022-03-02 10:28 | SUR.PHASEI ---
0951 Patient to PACU 4. Alert and talkative. Left hand dressing dry/intact. Fingers pink warm, tingling. NSR on monitor. Left arm elevated on blanket for comfort. No concerns expressed by patient.
--- NOTE | 2022-03-02 13:50 | ANE.PACU2 ---
Inpatient post-anesthesia follow up: Airway intact: Yes Vital signs: Temperature 97.8 F Pulse Rate 78 Respiratory Rate 16 Blood Pressure 154/88 Pulse Oximetry 99 Oxygen Delivery Me thod Room Air Oxygen Flow Rate Fraction of Inspir ed Oxygen Hydration adequate: Yes Nausea and vomiting: No Pain level: 1 Mental status: Baseline
== END 2022-03-02 10:35 | disposition home or self-care (01) ==
PROVIDERS: PCP Physician Assistant; Visit Provider Orthopaedic Surgery
PROC: (CPT 64721; principal; 2022-03-02 08:00)
PROC: (CPT 26055; 2022-03-02 08:00)
DX: G56.02 Carpal tunnel syndrome, left upper limb (principal); M65.312 Trigger thumb, left thumb; J44.9 Chronic obstructive pulmonary disease, unspecified; Z98.1 Arthrodesis status; I10 Essential (primary) hypertension; E66.01 Morbid (severe) obesity due to excess calories; Z68.36 Body mass index [BMI] 36.0-36.9, adult; Z87.891 Personal history of nicotine dependence
CPT/HCPCS: 26055; 64721; J2405; J2704; J3010; J3490; J7030

== ENCOUNTER 2022-11-06 13:56 | Outpatient (CLI) | payer MEDICAID, SELFPAY ==
--- NOTE | 2022-11-06 14:03 | MM_ITS ---
WS: [id number] BILATERAL 3D TOMOSYNTHESIS DIGITAL SCREENING MAMMOGRAPHY WITH CAD CLINICAL INFORMATION: SCREENING HISTORY: Screening mammogram. Bilateral breast pain and soreness COMPARISON: None. TECHNIQUE: Bilateral CC and MLO views. FINDINGS: Scattered fibroglandular densities bilaterally. No suspicious focal mass, asymmetry, calcifications, or architectural distortion. No evidence of malignancy. Vascular calcification MM/[place] [id number] IMPRESSION: BI-RADS: 2-Benign FOLLOW UP: 1 Year Follow-up Recommend return to annual screening mammography.
== END 2022-11-06 13:57 | disposition home or self-care (01) ==
LOC: RAD 13:59
PROVIDERS: PCP Physician Assistant; Visit Provider Physician Assistant
DX: Z12.31 Encounter for screening mammogram for malignant neoplasm of breast (principal)
CPT/HCPCS: 77063; 77067

== ENCOUNTER → 2022-11-21 15:50 | Outpatient (BNVA) | payer MEDICAID, SELFPAY | PROVIDERS: PCP Physician Assistant; Referring Provider Physician Assistant; Visit Provider Orthopaedic Surgery | DX: M16.0 Bilateral primary osteoarthritis of hip (principal); M48.062 Spinal stenosis, lumbar region with neurogenic claudication | CPT/HCPCS: 73521; 99213 ==

== ENCOUNTER → 2022-12-11 09:03 | Outpatient (BNVA) | payer MEDICAID, SELFPAY | PROVIDERS: PCP Physician Assistant; Visit Provider Anesthesiology Pain Medicine | DX: M48.062 Spinal stenosis, lumbar region with neurogenic claudication (principal); M43.16 Spondylolisthesis, lumbar region; M47.816 Spondylosis without myelopathy or radiculopathy, lumbar region; F33.2 Major depressive disorder, recurrent severe without psychotic features; Z98.1 Arthrodesis status | CPT/HCPCS: 99204 ==

== ENCOUNTER → 2022-12-25 13:02 | Outpatient (BNVA) | payer MEDICAID, SELFPAY | PROVIDERS: PCP Physician Assistant; Visit Provider Anesthesiology Pain Medicine | DX: M47.816 Spondylosis without myelopathy or radiculopathy, lumbar region (principal); M48.062 Spinal stenosis, lumbar region with neurogenic claudication | CPT/HCPCS: 64493; 64494; 64495; J3490 ==

== ENCOUNTER → 2023-01-08 12:41 | Outpatient (BNVA) | payer MEDICAID, SELFPAY | PROVIDERS: PCP Physician Assistant; Visit Provider Anesthesiology Pain Medicine | DX: M47.816 Spondylosis without myelopathy or radiculopathy, lumbar region (principal); M48.062 Spinal stenosis, lumbar region with neurogenic claudication | CPT/HCPCS: 64493; 64494; 64495; J3490 ==

== ENCOUNTER → 2023-02-26 08:59 | Outpatient (BNVA) | payer MEDICAID, SELFPAY | PROVIDERS: PCP Physician Assistant; Visit Provider Anesthesiology Pain Medicine | DX: M48.062 Spinal stenosis, lumbar region with neurogenic claudication (principal); M43.16 Spondylolisthesis, lumbar region; M47.816 Spondylosis without myelopathy or radiculopathy, lumbar region; F33.2 Major depressive disorder, recurrent severe without psychotic features; Z98.1 Arthrodesis status | CPT/HCPCS: 99214 ==

== ENCOUNTER → 2023-03-21 12:23 | Outpatient (BNVA) | payer MEDICAID, SELFPAY | PROVIDERS: PCP Physician Assistant; Visit Provider Anesthesiology Pain Medicine | DX: M47.816 Spondylosis without myelopathy or radiculopathy, lumbar region (principal); M48.062 Spinal stenosis, lumbar region with neurogenic claudication | CPT/HCPCS: 64635; 64636; J1030 ==

== ENCOUNTER → 2023-04-25 09:01 | Outpatient (BNVA) | payer MEDICAID, SELFPAY | PROVIDERS: PCP Physician Assistant; Visit Provider Anesthesiology Pain Medicine | DX: M48.062 Spinal stenosis, lumbar region with neurogenic claudication (principal) | CPT/HCPCS: 99214 ==

== ENCOUNTER 2023-05-19 20:53 | Emergency (ER) | payer MEDICAID, SELFPAY ==
[2023-05-19 21:05] VITALS: BP 130/79; PULSE 72; RESP 18; TEMP 36.7; O2SAT 97; BMI 42.3
[2023-05-19 21:28] VITALS: BP 152/80; PULSE 77; RESP 19; O2SAT 97
--- NOTE | 2023-05-19 21:48 | ED_ITS ---
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 Patient further reveals a she fell around 5 PM on a concrete floor and presents emergency room multiple complaints including left knee pain, left hand pain, left ankle pain and back pain. Denies any head injury, loss of consciousness, neck pain, shortness of breath or coughing up blood. Patient described the pain as sharp aching sensation with severity of 9 out of 10 associated with movement. Denies any bowel or bladder dysfunction. Denies any dysuria at this time. No numbness or tingling of lower extremity upper extremities. Associated symptoms-after fall: Denies neck pain Review of Systems General: Reports: 10 or more systems reviewed and unremarkable except in HPI and below Eyes: Denies: change in vision, blurry vision or blind spots Resp: Denies: dyspnea, productive cough, non-productive cough or wheezing Musc: Reports: back pain, extremity pain and joint pain; Denies: neck pain, joint warmth or loss of height Hilario/Lymph: Denies: easy bruising, easy bleeding, petechiae or purpura PFSH ED PFSH: Medical History Adjustment disorder with depressed mood Asthma Benign essential hypertension Bipolar 1 disorder COPD (chronic obstructive pulmonary disease) Hypercholesterolemia Lumbar stenosis with neurogenic claudication Morbid obesity with BMI of 45.0-49.9, adult PTSD (post-traumatic stress disorder) Spinal stenosis of lumbar region with radiculopathy Spondylolisthesis, lumbar region Synovial cyst of lumbar spine Surgical History H/O local excision of skin lesion (08/08/21) History of cholecystectomy History of lumbar laminectomy for spinal cord decompression History of tubal ligation Hx of spinal fusion Status post colonoscopy (08/08/21) Family History Mother Diabetes Father Diabetes Denies family history of Dementia Cancer Social History Smoking and tobacco status: former smoker Quit status (tobacco): has tried quititng Number of times tried to quit tobacco: 11 Second hand smoke exposure: Yes Alcohol intake: never Substance/Drug Use: current Substance/Drug use frequency: daily Housing: House service: No Current occupational status: employed Current occupation: [employer] Physical Exam Const: COMMON NORMALS: no acute distress, average body habitus, patient oriented x3, no limitations, healthy appearing, alert and well nourished HENMT: COMMON NORMALS: normocephalic, atraumatic, hearing grossly normal bilaterally, external ears normal, EAC's normal, TM's normal bilaterally, Normal external nose present, Normal nasal mucous membranes and turbinates present, moist oral mucous membranes, oropharynx normal, dentition normal and gingiva normal HEAD & SCALP: normocephalic and atraumatic NOSE: Normal external nose present and Normal nasal mucous membranes and turbinates present EXTERNAL EAR: Yes external ears normal EXTERNAL AUDITORY CANAL: EAC's normal TYMPANIC MEMBRANE: TM's normal bilaterally Eye: COMMON NORMALS: Equal, round and reactive pupils present, EOMs intact bilaterally, conjunctivae normal, no scleral icterus, no papilledema, normal visual herrera by confrontation and fundi normal bilaterally CONJUNCTIVA: Yes conjunctivae normal PUPIL: Yes Equal, round and reactive pupils present DIRECT OPHTHALMOSCOPY: Yes no papilledema and Yes fundi normal bilaterally Neck/C-Spine: COMMON NORMALS: full ROM, no lymphadenopathy, supple, no meningeal signs, no JVD, Thyroid normal and No carotid bruits THYROID: Thyroid normal Chest: COMMONS NORMALS: normal inspection of the chest, normal palpation of entire chest wall, normal inspection of the breasts and normal palpation of the breasts Breast/axilla inspection: Yes normal inspection of the breasts BREAST/AXILLA PALPATION: Yes normal palpation of the breasts Cardio: COMMON NORMALS: no JVD Back/Pelvis: BACK IMAGE (FEMALE): 1. AREA WITH PAIN UPON PALPATION SOME BRUISING NOTED Extremity: OTHER: DIFFUSE LEFT HAND PAIN. NO OBVIOUS DEFORMITY ANTERIOR ASPECT OF LEFT KNEE WITH SWELLING AND PAIN UPON PALPATION Neuro: COMMON NORMALS: patient oriented x3 SENSORIUM/ORIENTATION: Yes alert MENINGEAL SIGNS: Yes no meningeal signs Skin: OTHER: Left knee with some abrasion but no open laceration. Course Vital Signs: Vital signs: Vital Signs Temperature 98.0 F 05/19/23 21:05 Pulse Rate 67 05/20/23 00:12 Respiratory Rate 16 05/20/23 00:12 Blood Pressure 150/68 05/20/23 00:12 Pulse Oximetry 98 05/20/23 00:12 Oxygen Delivery Me thod Room Air 05/19/23 21:28 MDM - Fall Medical Decision Making Patient made comfortable emergency room and had extensive work-up done including multiple x-rays. Discussed x-ray finding with patient. We will follow-up with official x-ray at this time. Patient will be discharged home with some naproxen and Flexeril. Differential Diagnosis Likely syncope, dislocation of shoulder region, fracture of wrist, compression fracture, concussion with loss of consciousness and concussion without loss of consciousness Lab Data Radiology Impressions Hand X-Ray 05/19/23 21:49 IMPRESSION: No acute findings. Knee X-Ray 05/19/23 21:49 IMPRESSION: No acute findings. Lumbar Spine X-Ray 05/19/23 21:49 IMPRESSION: No acute findings. Ankle X-Ray 05/19/23 22:01 IMPRESSION: No acute findings. Hip/Pelvis X-Ray 05/19/23 22:03 IMPRESSION: No acute findings. XR interpretation done by ED provider, pending radiology final review Discharge Plan Discharge Patient Disposition: Home Clinical Impression: Fall, Multiple contusions, Sprain and strain Condition: Stable Prescriptions: New cyclobenzaprine 10 mg tablet 10 mg PO BID PRN (Reason: muscle spasm) Qty: 20 0RF naproxen 500 mg tablet 500 mg PO DAILY PRN (Reason: pain) Qty: 20 0RF No Action divalproex [Depakote] 500 mg tablet,delayed release (DR/EC) 500 mg PO BID ondansetron HCl 4 mg tablet 4 mg PO Q8H PRN (Reason: nausea and vomiting) 7 Days Qty: 30 0RF bupropion HCl [Wellbutrin XL] 150 mg tablet extended release 24 hr 150 mg PO QAM Qty: 90 0RF buspirone 10 mg tablet 10 mg PO BID Qty: 180 0RF escitalopram oxalate [Lexapro] 20 mg tablet 20 mg PO DAILY Qty: 90 0RF prazosin 1 mg capsule 1 mg PO .HS Qty: 90 0RF propranolol 20 mg tablet 20 mg PO BID Qty: 180 0RF amlodipine 5 mg Tablet 5 mg PO DAILY gabapentin 300 mg capsule 600 mg PO TID methocarbamol 500 mg PO TID aspirin 81 mg Tablet,Delayed Release (Dr/Ec) 81 mg PO DAILY 30 Days Qty: 30 1RF isosorbide mononitrate 60 mg tablet extended release 24 hr 60 mg PO DAILY 30 Days Qty: 30 1RF cyanocobalamin (vitamin B-12) 1,000 mcg/mL solution 1,000 mcg IM Q30D 30 Days Qty: 1 1RF lisinopril-hydrochlorothiazide 20-25 mg tablet 1 tab PO DAILY 30 Days Qty: 30 1RF albuterol sulfate [ProAir HFA] 90 mcg/actuation HFA aerosol inhaler 2 puff INHALATION Q4H PRN (Reason: Shortness Of Breath) 30 Days Qty: 1 1RF loratadine [Claritin] 10 mg Tablet 10 mg PO DAILY 30 Days Qty: 30 1RF nitroglycerin 0.4 mg tablet, sublingual 0.4 mg sublingual PRN PRN (Reason: chest pain) Rx Instructions: Every 5 minutes max 3 doses in 15 minutes for anginal pain ropinirole 2 mg tablet 2 mg PO BEDTIME Discharge Orders: Discharge ED (Routine); Ordered 05/19/23 Ordered By: Allan Munoz Referrals: Dai Stark PA [Primary Care Provider] - Discharge Diet: Advance as tolerated Discharge Activity: Resume usual activity Patient Instructions: Opioid Safety, Pain Management Coding Level of Care Code ED Garage Hand for Alfredo Al
--- NOTE | 2023-05-19 21:49 | XRR_ITS ---
PROCEDURE INFORMATION: Exam: XR Left Knee Exam date and time: 05/19/2023 10:15 PM Age: 52 years old Clinical indication: Injury or trauma; Blunt trauma; Patient HX: Patient tripped walking down concrete steps falling onto left side. C/O low back, left hip, knee, ankle, and left hand pain. Abrasion to anterior aspect of knee. ; Additional info: Pain post fall TECHNIQUE: Imaging protocol: Radiologic exam of the left knee. Views: 3 views. COMPARISON: No relevant prior studies available. FINDINGS: Bones/joints: No acute fracture or dislocation. No joint effusion. Mild degenerative changes. Soft tissues: Normal. XR/XR knee LT 3V* [id number] IMPRESSION: No acute findings.
--- NOTE | 2023-05-19 21:49 | XRR_ITS ---
PROCEDURE INFORMATION: Exam: XR Left Hand Exam date and time: 05/19/2023 10:20 PM Age: 52 years old Clinical indication: Injury or trauma; Blunt trauma (contusions or hematomas); Patient HX: Patient tripped walking down concrete steps falling onto left side. C/O low back, left hip, knee, ankle, and left hand pain. Abrasion to anterior aspect of knee. ; Additional info: Pain post fall TECHNIQUE: Imaging protocol: Radiologic exam of the left hand. Views: 3 or more views. COMPARISON: No relevant prior studies available. FINDINGS: Bones/joints: No acute fracture or dislocation. Soft tissues: Normal. XR/XR hand LT 2V [id number] IMPRESSION: No acute findings.
--- NOTE | 2023-05-19 21:49 | XRR_ITS ---
PROCEDURE INFORMATION: Exam: XR Lumbosacral Spine Exam date and time: 05/19/2023 9:54 PM Age: 52 years old Clinical indication: Injury or trauma; Blunt trauma (contusions or hematomas); Prior surgery; Surgery date: 6+ months; Surgery type: Lumbar; Patient HX: Patient tripped walking down concrete steps falling onto left side. C/O low back, left hip, knee, ankle, and left hand pain. Abrasion to anterior aspect of knee. ; Additional info: Pain post fall TECHNIQUE: Imaging protocol: Radiologic exam of the lumbosacral spine. Views: 4 or 5 views. COMPARISON: 1. CR XR coccyx 2V 01/24/2022 9:[address] lumbar spine wo contrast 01/24/2022 8:48 PM FINDINGS: Bones/joints: No acute fracture. Stable postoperative changes from L4-L5 fusion. Bilateral pedicle screws and rods appear intact and unchanged. Laminectomy defect again noted. Soft tissues: Unremarkable. XR/XR lumbar spine min 4V [id number] IMPRESSION: No acute findings.
--- NOTE | 2023-05-19 22:01 | XRR_ITS ---
PROCEDURE INFORMATION: Exam: XR Left Ankle Exam date and time: 05/19/2023 10:18 PM Age: 52 years old Clinical indication: Injury or trauma; Blunt trauma; Patient HX: Patient tripped walking down concrete steps falling onto left side. C/O low back, left hip, knee, ankle, and left hand pain. Abrasion to anterior aspect of knee. ; Additional info: Fall TECHNIQUE: Imaging protocol: Radiologic exam of the left ankle. Views: 1 or 2 views. COMPARISON: No relevant prior studies available. FINDINGS: Bones/joints: No acute fracture or dislocation. Ankle mortise is preserved. Soft tissues: Normal. XR/XR ankle LT 2V [id number] IMPRESSION: No acute findings.
--- NOTE | 2023-05-19 22:03 | XRR_ITS ---
PROCEDURE INFORMATION: Exam: XR Left Hip Exam date and time: 05/19/2023 10:08 PM Age: 52 years old Clinical indication: Injury or trauma; Blunt trauma (contusions or hematomas); Patient HX: Patient tripped walking down concrete steps falling onto left side. C/O low back, left hip, knee, ankle, and left hand pain. Abrasion to anterior aspect of knee. ; Additional info: Fall TECHNIQUE: Imaging protocol: Radiologic exam of the left hip. Views: 2 or 3 views hip with pelvis when performed. COMPARISON: CR XR hip BI 2V wo/w pel 11/21/2022 3:51 PM FINDINGS: Bones/joints: No acute fracture or dislocation. Stable minor degenerative changes in the left hip. Soft tissues: Unremarkable. XR/XR hip LT 2-3V wo/w pel* [id number] IMPRESSION: No acute findings.
[2023-05-19] MEDS: ketorolac 60 mg/2 mL INJ IM (22:29)
[2023-05-19 23:46] VITALS: RESP 20; O2SAT 96
[2023-05-19] MEDS: oxyCODONE-APAP 5-325 mg Tablet 1 TAB PO (23:46)
[2023-05-19] MEDS: ondansetron 2 mg/ML SDV 2 mL 4 MG IM (23:46)
[2023-05-19] MEDS: morphine 4 mg/mL SDV 1 mL IM (23:46)
[2023-05-20 00:12] VITALS: BP 150/68; PULSE 67; RESP 16; O2SAT 98
--- NOTE | 2023-05-20 00:16 | PC.NURSE ---
sent pt home with 1 Percocet 5-325mg tab
== END 2023-05-20 00:16 | disposition home or self-care (01) ==
PROVIDERS: Emergency Provider Family Medicine; PCP Physician Assistant
DX: S80.212A Abrasion, left knee, initial encounter (principal); S30.0XXA Contusion of lower back and pelvis, initial encounter; Z79.82 Long term (current) use of aspirin; I10 Essential (primary) hypertension; J44.9 Chronic obstructive pulmonary disease, unspecified; Z87.891 Personal history of nicotine dependence; W19.XXXA Unspecified fall, initial encounter
CPT/HCPCS: 72110; 73120; 73502; 73562; 73600; 96372; 99284; J1885; J2270; J2405

== ENCOUNTER → 2023-06-05 09:38 | Outpatient (BNVA) | payer MEDICAID, SELFPAY | PROVIDERS: PCP Physician Assistant; Visit Provider Anesthesiology Pain Medicine | DX: M51.16 Intervertebral disc disorders with radiculopathy, lumbar region; M48.062 Spinal stenosis, lumbar region with neurogenic claudication | CPT/HCPCS: 99215 ==

== ENCOUNTER → 2023-06-21 11:40 | Outpatient (BNVA) | payer MEDICAID, SELFPAY | PROVIDERS: PCP Physician Assistant; Visit Provider Nurse Practitioner Women's Health | DX: Z12.4 Encounter for screening for malignant neoplasm of cervix (principal) | CPT/HCPCS: 87624 ==

== ENCOUNTER → 2023-07-03 11:10 | Outpatient (BNVA) | payer MEDICAID, SELFPAY | PROVIDERS: PCP Physician Assistant; Visit Provider Nurse Practitioner Women's Health | DX: N95.0 Postmenopausal bleeding (principal) | CPT/HCPCS: 76830 ==

== ENCOUNTER 2023-07-04 11:37 | Outpatient (CLI) | payer MEDICAID, SELFPAY ==
--- NOTE | 2023-07-04 11:45 | MR_ITS ---
WS: [id number] MRI LUMBAR SPINE NONCONTRAST HISTORY: M54.16 - Radiculopathy, lumbar region COMPARISON: 07/01/2021., TECHNIQUE: Sagittal and axial multisequence imaging is submitted. Artifact from cervical fusion hardware in the mid to lower cervical spine. Posterior lumbar fusion at L4-5. L3 anterolisthesis by 2.7 mm. L4 anterolisthesis by 3.5 mm. Similar alignment as compared to 07/01/2021. Mild disc space desiccation throughout the lumbar spine. Conus terminates normally at L1. L1-L2: Bilateral facet joint arthritis and ligamentum flavum arthritis. Mild bilateral foraminal sten osis. L2-L3: Mild annular disc bulging with moderate facet arthritis. Mild central and bilateral subarticul ar recess and foraminal stenosis. RIGHT foraminal stenosis greater than the LEFT. L3-L4: Annular disc bulging with severe ligamentum flavum and facet arthritis. There is severe centra l, bilateral subarticular recess and foraminal stenosis. L4-L5: Mild annular disc bulging. Posterior laminectomy defects. Moderate to severe central with bila teral subarticular recess and foraminal stenosis. Greater stenosis LEFT foramen with near complete ef facement of fat in the foramen. L5-S1: Mild annular disc bulging. Posterior laminectomy defect. Moderate RIGHT and severe LEFT forame n stenosis. Paravertebral soft tissues are negative. IMPRESSION: 1. Posterior lumbar fusion L4-5. 2. L3 anterolisthesis by 2.7 mm and L4 anterolisthesis by 3.5 mm. 3. L3-4: Severe central, bilateral subarticular recess and foraminal stenosis. Significant contact on the L3 and L4 nerve roots. 4. L5-S1: Severe LEFT foramen stenosis and moderate on the RIGHT. 5. L4-5: Moderate to severe central with bilateral subarticular recess and foraminal stenosis. Greate r stenosis involving the LEFT foramen. 6. Mild central, bilateral subarticular recess and foraminal stenosis.
== END 2023-07-04 11:38 | disposition home or self-care (01) ==
PROVIDERS: PCP Physician Assistant; Visit Provider Anesthesiology Pain Medicine
DX: M47.26 Other spondylosis with radiculopathy, lumbar region (principal); Z98.1 Arthrodesis status; M48.07 Spinal stenosis, lumbosacral region
CPT/HCPCS: 72148

== ENCOUNTER 2023-07-06 05:55 | Emergency (ER) | payer MEDICAID, SELFPAY ==
[2023-07-06 05:56] VITALS: BP 170/98; PULSE 76; RESP 18; TEMP 36.8; O2SAT 96
--- NOTE | 2023-07-06 06:00 | ECG_ITS ---
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 Measurements Intervals [place] Rate: 76 P: 70 [place]: 181 QRS: 72 QRSD: 73 T: 62 QT: 362 QTc: 409 Interpretive Statements SINUS RHYTHM Compared to ECG 10/27/2020 10:36:56 No significant changes Electronically Signed On 07-06-2023 12:29:32 CDT by Elia Chapman M.D. [id number]
--- NOTE | 2023-07-06 06:00 | XRR_ITS ---
PROCEDURE INFORMATION: Exam: XR Chest Exam date and time: 07/06/2023 6:32 AM Age: 52 years old Clinical indication: Pain; Chest pressure; Additional info: Chest pain TECHNIQUE: Imaging protocol: Radiologic exam of the chest. Views: 1 view. COMPARISON: CR XR cervical spine 3V* [id number] 11/22/2021 1:03 PM FINDINGS: Lungs: Unremarkable. No consolidation. Pleural spaces: Unremarkable. No pleural effusion. No pneumothorax. Heart/Mediastinum: Unremarkable. No cardiomegaly. 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 XR/XR chest 1V portable [id number] IMPRESSION: No acute findings.
--- NOTE | 2023-07-06 06:03 | ED_ITS ---
HPI - Chest Pain General: Chief Complaint: Chest Pain Stated Complaint: Chest Pain Time Seen by Provider: 07/06/23 06:00 Source: patient Mode of arrival: EMS History of Present Illness: 52-year-old female presents emergency room complaining of chest comfort that woke her up this morning. She has retrosternal chest pain burning in nature nonradiating is intermittent. She has not had any episodes of stress over Recently had. She has had 2 angiograms in the past both which have been negative did not require any intervention. Patient is a smoker and has a history of hypertension. She was given nitro in route which resolved her chest pain she was also given aspirin. MD complaint: chest pain Onset (ago): hour(s) Timing of current episode: episodic Prior episodes: Yes Onset: during rest Pain location: left chest Severity: mild Quality: tightness and aching Relieving factors: nitroglycerin Associated symptoms: Deny abdominal pain, diaphoresis, dyspnea, fever(s), leg edema, nausea, palpitations, sense of impending doom, syncope or vomiting Review of Systems Const: Denies: fever(s), chills or diaphoresis Card: Denies: chest pain, palpitations or syncope Resp: Denies: dyspnea GI: Denies: abdominal pain, nausea or vomiting : Denies: dysuria, urinary frequency or urinary urgency Musc: Denies: neck pain or back pain Skin/Breast: Denies: rash PFSH ED PFSH: Medical History Adjustment disorder with depressed mood Asthma Benign essential hypertension Bipolar 1 disorder COPD (chronic obstructive pulmonary disease) Hypercholesterolemia Lumbar stenosis with neurogenic claudication Morbid obesity with BMI of 45.0-49.9, adult PTSD (post-traumatic stress disorder) Spinal stenosis of lumbar region with radiculopathy Spondylolisthesis, lumbar region Synovial cyst of lumbar spine Surgical History H/O local excision of skin lesion (08/08/21) History of cholecystectomy History of lumbar laminectomy for spinal cord decompression History of tubal ligation Hx of spinal fusion Status post colonoscopy (08/08/21) Family History Mother Diabetes Father Diabetes Denies family history of Dementia Cancer Social History Smoking and tobacco/nicotine status: former use of tobacco/nicotine Quit status (tobacco/nicotine): has tried quititng Number of times tried to quit tobacco: 11 Second hand smoke exposure: Yes Alcohol intake: never Substance/Drug Use: current Substance/Drug use frequency: daily Housing: House service: No Current occupational status: employed Current occupation: [employer] Physical Exam Const: GENERAL APPEARANCE: cooperative and comfortable ORIENTATION/CONSCIOUSNESS: Yes awake, Yes oriented to person, Yes oriented to place and Yes oriented to time HENMT: COMMON NORMALS: normocephalic, atraumatic and hearing grossly normal bilaterally HEAD & SCALP: normocephalic and atraumatic Resp: COMMON NORMALS: normal respiratory effort, No retractions, No use of a ccessory muscles and clear to auscultation bilaterally AUSCULTATION: clear to auscultation bilaterally Cardio: COMMON NORMALS: regular rate, regular rhythm and No murmurs present (Cardio) RATE: regular rate RHYTHM: regular rhythm GI: COMMON NORMALS: Soft to palpation and No hepatosplenomegaly present AUSCULTATION: Yes normoactive bowel sounds PALPATION: Yes Soft to palpation, No Tenderness to palpation present (GI), No Guarding due to palpation present (GI) and Yes No hepatosplenomegaly present Extremity: COMMON NORMALS: normal to inspection, capillary refill normal, no clubbing, cyanosis or edema, no calf tenderness and no pedal edema Neuro: SENSORIUM/ORIENTATION: Yes oriented to person, Yes oriented to place and Yes oriented to time Skin: COMMON NORMALS: no rashes or lesions noted GENERAL SKIN EXAM: no rashes or lesions noted Course Vital Signs: Vital signs: Vital Signs Temperature 98.3 F 07/06/23 05:56 Pulse Rate 75 07/06/23 06:41 Respiratory Rate 16 07/06/23 06:41 Blood Pressure 137/74 07/06/23 06:41 Pulse Oximetry 94 07/06/23 06:41 Oxygen Delivery Me thod Room Air 07/06/23 06:33 MDM - Chest Pain Medical Decision Making Serial EKGs negative no acute ST changes noted reviewed as found in the chart. Troponins negative on trend. Labs and imaging reviewed. Discharge patient home she describes the pain as short bursts of pain lasting timeframe of seconds at most 10 seconds and then resolves suspect esophageal spasm started on pantoprazole as well as still Carafate as needed. Set up for an outpatient Lexiscan sestamibi stress test return if has further problems continue to take baby aspirin daily Medical Records I reviewed the patient's medical records. Lab Data I reviewed the patient's lab results. 07/06/23 06:13 07/06/23 06:13 Radiology Impressions Chest X-Ray 07/06/23 06:00 IMPRESSION: No acute findings. Laboratory Results WBC 7.69 10^3/uL (3.29-11.43) 07/06/23 06:13 RBC 4.57 10^6/uL (3.85-5.65) 07/06/23 06:13 Hgb 13.70 g/dL (11.27-16.99) 07/06/23 06:13 Hct 41.8 % (36-47) 07/06/23 06:13 MCV 91.5 fl (85-98) 07/06/23 06:13 MCH 30.0 pg (27-33) 07/06/23 06:13 MCHC 32.8 g/dL (30-55) 07/06/23 06:13 RDW 13.1 % (12.1-15.1) 07/06/23 06:13 Plt Count 321 10^3/cmm (157-399) 07/06/23 06:13 MPV 8.9 fL (7.4-10.4) 07/06/23 06:13 Neut % (Auto) 50.4 % 07/06/23 06:13 Lymph % (Auto) 39.9 % 07/06/23 06:13 [place] % (Auto) 6.1 % 07/06/23 06:13 Eos % (Auto) 2.6 % 07/06/23 06:13 Baso % (Auto) 0.7 % 07/06/23 06:13 Neut # (Auto) 3.88 10^3/uL (1.8-7.7) 07/06/23 06:13 Lymph # (Auto) 3.1 10^3/uL (0.8-4.8) 07/06/23 06:13 [place] # (Auto) 0.5 10^3/uL (0.2-0.9) 07/06/23 06:13 Eos # (Auto) 0.2 10^3/uL (0.0-0.8) 07/06/23 06:13 Baso # (Auto) 0.1 10^3/uL (0.0-0.1) 07/06/23 06:13 Nucleated RBC % (auto) 0 % 07/06/23 06:13 Nucleated RBCs # 0.0 /100WBC 07/06/23 06:13 Sodium 141 mmol/L (136-145) 07/06/23 06:13 Potassium 4.8 mmol/L (3.5-5.1) 07/06/23 06:13 Chloride 103 mmol/L (98-107) 07/06/23 06:13 Carbon Dioxide 28 mmol/L (22-29) 07/06/23 06:13 Anion Gap 14.8 (5-19) 07/06/23 06:13 BUN 27 mg/dL (6-20) H 07/06/23 06:13 Creatinine 1.0 mg/dL (0.5-0.9) H 07/06/23 06:13 GFR Calculation 57.8 mL/min (90-130) L 07/06/23 06:13 Glucose 126 mg/dL (65-115) H 07/06/23 06:13 Calculated Osmolality 299 mOsm/kg (285-295) H 07/06/23 06:13 Calcium 8.8 mg/dL (8.5-10.5) 07/06/23 06:13 Total Bilirubin 0.2 mg/dL (0.15-1.2) 07/06/23 06:13 AST 19 U/L (0-32) 07/06/23 06:13 ALT 17 U/L (0-33) 07/06/23 06:13 Alkaline Phosphatase 97 U/L (35-105) 07/06/23 06:13 Troponin T Baseline 14 ng/L (0-10) H 07/06/23 06:13 Troponin T 120 Minute 12.51 ng/L (0-10) H 07/06/23 07:58 Delta Troponin T -1.49 ABS# (0-10) L 07/06/23 07:58 Total Protein 7.0 g/dL (6.6-8.7) 07/06/23 06:13 Albumin 4.0 g/dL (3.5-5.2) 07/06/23 06:13 Globulin 3.0 g/dL (1.3-4.6) 07/06/23 06:13 Urine Color Yellow (Yellow) 07/06/23 06:33 Urine Appearance Hazy (CLEAR) A 07/06/23 06:33 Urine pH 6 (5-7) 07/06/23 06:33 Ur Specific [place] 1.015 (1.005-1.030) 07/06/23 06:33 Urine Protein Neg (Negative) 07/06/23 06:33 Urine Glucose (UA) Norm (Normal) 07/06/23 06:33 Urine Ketones Negative (Negative) 07/06/23 06:33 Urine Blood Neg (Negative) 07/06/23 06:33 Urine Nitrate Negative (Negative) 07/06/23 06:33 Urine Bilirubin Neg (Negative) 07/06/23 06:33 Urine Urobilinogen Neg mg/dL (Negative) 07/06/23 06:33 Ur Leukocyte Esterase Trace (Negative) H 07/06/23 06:33 Urine RBC Rare /hpf (0-2) 07/06/23 06:33 Urine WBC 0-4 /hpf (0-5) H 07/06/23 06:33 Ur Squamous Epith Cells 15-25 /hpf (0-5) H 07/06/23 06:33 Amorphous Sediment Not Reportable 07/06/23 06:33 Urine Bacteria 1+ /hpf (NONE) H 07/06/23 06:33 Urine Mucus Trace /hpf 07/06/23 06:33 All radiology interpretation(s) finalized by discharge Discharge Plan Discharge Patient Disposition: Home Clinical Impression: Atypical chest pain, Chest pain due to GERD Condition: Stable Prescriptions: New pantoprazole 40 mg tablet,delayed release (DR/EC) 40 mg PO DAILY Qty: 30 0RF Carafate 1 gram tablet 1 g PO Q6H PRN (Reason: reflux/dyspepsia) 28 Days Qty: 112 0RF No Action bupropion HCl [Wellbutrin XL] 150 mg tablet extended release 24 hr 150 mg PO QAM Qty: 90 0RF amlodipine 5 mg Tablet 5 mg PO DAILY aspirin 81 mg Tablet,Delayed Release (Dr/Ec) 81 mg PO DAILY 30 Days Qty: 30 1RF isosorbide mononitrate 60 mg tablet extended release 24 hr 60 mg PO DAILY 30 Days Qty: 30 1RF cyanocobalamin (vitamin B-12) 1,000 mcg/mL solution 1,000 mcg IM Q30D 30 Days Qty: 1 1RF lisinopril-hydrochlorothiazide 20-25 mg tablet 1 tab PO DAILY 30 Days Qty: 30 1RF albuterol sulfate [ProAir HFA] 90 mcg/actuation HFA aerosol inhaler 2 puff INHALATION Q4H PRN (Reason: Shortness Of Breath) 30 Days Qty: 1 1RF nitroglycerin 0.4 mg tablet, sublingual 0.4 mg sublingual PRN PRN (Reason: chest pain) Rx Instructions: Every 5 minutes max 3 doses in 15 minutes for anginal pain ropinirole 2 mg tablet 2 mg PO BEDTIME gabapentin 600 mg tablet 600 mg PO TID propranolol 10 mg tablet 10 mg PO BID escitalopram oxalate 10 mg tablet 10 mg PO QAM cetirizine 10 mg tablet 10 mg PO BID PRN (Reason: Allergic Symptoms) Symbicort 160-4.5 mcg/actuation HFA aerosol inhaler 2 inh INHALATION BID Discharge Orders: Discharge ED (Routine); Ordered 07/06/23 Ordered By: Ramon Fowler Referrals: Dai Stark PA [Primary Care Provider] - Discharge Diet: Usual diet Discharge Activity: Resume usual activity Patient Instructions: Opioid Safety, Pain Management Activity Restrictions/Additional Instructions: Thank you for choosing [facility] for your healthcare needs today. Please realize this is an emergency room and that we are providing you with a medical screening exam and this may not be complete and all inclusive of all the testing and or work up that you may need to determine your ailment or severity of your illness. It is very important that you follow up as instructed or that you return to the Emergency Department should you have concerns or if your condition changes or worsens in any way. EKGs and troponins were negative no acute findings noted. Suspect that this short burst of sharp pain that you are having are related to GI tract continue aspirin daily start on pantoprazole and use Carafate as needed follow-up with your primary care doctor. Case management make arrangements for you to have an outpatient Lexiscan sestamibi stress test. Coding Level of Care Code ED Automotive Technician Instructor for Alfredo Al
[2023-07-06 06:23] LABS: Basophils # 0.1 10^3/uL (0.0-0.1); Basophils % 0.7 %; Eosinophils # 0.2 10^3/uL (0.0-0.8); Eosinophils % 2.6 %; Hematocrit 41.8 % (36-47); Lymphocytes # 3.1 10^3/uL (0.8-4.8); Lymphocytes % 39.9 %; Mean Corpuscular HGB Conc 32.8 g/dL (30-55); Mean Corpuscular Volume 91.5 fl (85-98); Mean Platelet Volume 8.9 fL (7.4-10.4); Monocytes # 0.5 10^3/uL (0.2-0.9); Monocytes % 6.1 %; Neutrophils # 3.88 10^3/uL (1.8-7.7); Neutrophils % 50.4 %; Nucleated Red Blood Cells % 0 %; Platelet Count 321 10^3/cmm (157-399); Red Blood Count 4.57 10^6/uL (3.85-5.65); Red Cell Distribution Width 13.1 % (12.1-15.1); White Blood Count 7.69 10^3/uL (3.29-11.43)
[2023-07-06 06:33] VITALS: BP 137/77; PULSE 79; RESP 16; O2SAT 97
[2023-07-06 06:37] VITALS: BP 137/77; PULSE 75
[2023-07-06] MEDS: nitroglycerin 1 gm/inch oint Pkt 1 INCH TOPICAL (06:37)
[2023-07-06 06:41] VITALS: BP 137/74; PULSE 75; RESP 16; O2SAT 94
[2023-07-06 06:42] LABS: Alkaline Phosphatase 97 U/L (35-105); Blood Urea Nitrogen 27 mg/dL (6-20); Calcium 8.8 mg/dL (8.5-10.5); Carbon Dioxide 28 mmol/L (22-29); Chloride 103 mmol/L (98-107); Glomerular Filtration Rate 57.8 mL/min (90-130); Glucose 126 mg/dL (65-115); Osmolality Calculated 299 mOsm/kg (285-295); Sodium 141 mmol/L (136-145); Total Bilirubin 0.2 mg/dL (0.15-1.2); Troponin(5th) Baseline 14 ng/L (0-10)
--- NOTE | 2023-07-06 06:43 | PC.NURSE ---
EMS administered 324 mg of aspirin to pt in the ambulance before arriving to facility.
[2023-07-06 06:45] LABS: Anion Gap 14.8 (5-19); Aspartate Amino Transferase 19 U/L (0-32); Potassium 4.8 mmol/L (3.5-5.1)
[2023-07-06 06:52] LABS: Alanine Aminotransferase 17 U/L (0-33)
[2023-07-06 07:14] LABS: Add Urine Microscopic? YES; Bilirubin Urine Neg (Negative); Blood Urine Neg (Negative); Glucose Urine UA Norm (Normal); Ketones Urine Negative (Negative); Leukocyte Esterase Urine Trace (Negative); Nitrate Urine Negative (Negative); Protein Urine Neg (Negative); RBC Urine RARE /hpf (0-2); Specific Gravity, Urine 1.015 (1.005-1.030); Urine Appearance Hazy (CLEAR); Urine Color Yellow (Yellow); Urobilinogen Urine Neg (Negative); WBC Urine 0-4 /hpf (0-5); pH Urine 6 (5-7)
[2023-07-06 07:15] LABS: Add Urine Culture? No; Bacteria Urine 1+ /hpf; Mucus Urine TRACE /hpf; Squamous Epithelial Cell Urine 15-25 /hpf (0-5)
--- NOTE | 2023-07-06 07:34 | PC.PHAR ---
PT HAS HAD SEVERAL ADJUSTMENTS TO MEDICATIONS. NO LONGER TAKING BUSPIRONE 10 MG, CYCLOBENZAPRINE 10 MG, DIVALPROEX 500MG, LORATADING 10MG, METHOCARBAMOL 500MG, NAPROXEN 500 MG, ONDANSETRON 4 MG, PRAZOSIN 1 MG, AND TRAMADOL 50 MG. PROPRANOLOL CHANGED FROM 20 MG TO 10 MG TWICE DAILY, GABAPENTIN 300MG CHANGED TO 600 MG 3 TIMES DAILY, ESCITALOPRAM 20 MG CHANGED TO 10 MG DAILY.
--- NOTE | 2023-07-06 07:58 | ECG_ITS ---
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 Measurements Intervals [place] Rate: 67 P: 61 LA: 194 QRS: 68 QRSD: 81 T: 57 QT: 419 QTc: 443 Interpretive Statements SINUS RHYTHM Compared to ECG 10/27/2020 10:36:56 No significant changes Electronically Signed On 07-06-2023 12:31:51 CDT by Elia Chapman M.D. [email or web address], [id number]
[2023-07-06 08:21] LABS: Troponin 5 2HR 12.51 ng/L (0-10)
[2023-07-06 08:37] LABS: Troponin 5 2HR Delta -1.49 ABS# (0-10)
== END 2023-07-06 09:01 | disposition home or self-care (01) ==
PROVIDERS: Emergency Provider Family Medicine; PCP Physician Assistant
DX: R07.89 Other chest pain (principal); K21.9 Gastro-esophageal reflux disease without esophagitis; Z79.82 Long term (current) use of aspirin; Z87.891 Personal history of nicotine dependence; J44.9 Chronic obstructive pulmonary disease, unspecified
CPT/HCPCS: 36415; 71045; 80053; 81001; 84484; 85025; 93005; 99285

== ENCOUNTER → 2023-07-10 09:35 | Outpatient (BNVA) | payer MEDICAID, SELFPAY | PROVIDERS: PCP Physician Assistant; Visit Provider Anesthesiology Pain Medicine | DX: M48.07 Spinal stenosis, lumbosacral region (principal); M51.16 Intervertebral disc disorders with radiculopathy, lumbar region; M48.062 Spinal stenosis, lumbar region with neurogenic claudication; M43.16 Spondylolisthesis, lumbar region | CPT/HCPCS: 99215 ==

== ENCOUNTER 2023-07-18 09:44 | Outpatient (CLI) | payer MEDICAID, SELFPAY ==
[2023-07-18 09:52] VITALS: BMI 44.9
--- NOTE | 2023-07-18 09:52 | NMCV_ITS ---
NM linda perf SPECT r/s* [id number] Selena Decker Age: 52 Gender: F : 1970 Exam Date: 07/18/2023 09:52 Ordering Phys: Ramon Fowler DO Technologist: JOVANA Dias Exam Location: [facility] Indications: CHEST PAIN STRESS TEST Please see separate stress test report in [facility] for full findings IMAGE PROTOCOL Rest/Stress 1 Lexiscan Day Radiopharmaceutical Dose (mCi) Administration Site Administered by Rest: Tc-99m 10.8 IV JOVANA Huang Sestamibi Stress:Tc-99m 33.0 IV JOVANA Huang Sestamibi Rest: 18-Jul-2023 60 Discovery 630 Stress: 18-Jul-2023 30 Discovery 630 0.4mg Lexiscan. Supine position only as patient was unable to lay prone. SPECT RESULTS Technical Quality: Excellent Raw Data Analysis: Normal Image Corrections: No attenuation or motion correction applied Summed Stress Score: 0 Summed Rest Score: 0 Summed Difference Score: 0 PERFUSION FINDINGS SPECT images demonstrate homogeneous tracer distribution throughout the myocardium. FUNCTIONAL RESULTS (calculated via Gated SPECT) Stress Image LV EF (%): 82 Stress EDV (mL):101 TID: 1.05 Stress ESV (mL):18 FUNCTIONAL FINDINGS: The left ventricle is normal in size. Transient Ischemia Dilatation of 1.1. The left ventricular ejection fraction is normal with a value of 82%. There is normal left ventricular wall thickening. IMPRESSIONS 1. Myocardial perfusion imaging is normal. 2. Overall left ventricular systolic function is normal without regional wall motion abnormalities, LVEF=82%. 3. No EKG changes with Lexiscan infusion. Refer to separate report for details. 4. Scan indicates low risk for cardiac events. Karen Chun MD (Electronically Signed) Final Date: 18 July 2023 16:45 S
--- NOTE | 2023-07-18 09:52 | ECG_ITS ---
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 Interpretive Statements NAME OF STUDY: LEXISCAN SESTAMIBI STRESS TEST INDICATION: Atypical Chest Pain PROCEDURE: At the baseline, the blood pressure was 129/85 mm Hg with a heart rate of 65 beats per min. The electrocardiogram showed sinus rhythm, normal axis with normal ST and T's. ??? The Lexiscan was infused over a period of 20 seconds. A total of 0.4 milligrams of Lexiscan was infused. The stress phase was continued for a total of 5 minutes. Heart rate at the end of the stress phase was 76 bpm with a blood pressure of 118/78 mmHg. The EKG at the peak infusion revealed no significant ST-T wave changes. ??? Sestamibi was injected 20 seconds after the Lexiscan infusion. ??? Blood pressure at the end of the recovery phase was 130 over 84 mm Hg with a heart rate of 78 beats per minute. ??? CONCLUSION: 1. Normal EKG response to LexiScan infusion. 2. No LexiScan induced chest pain or cardiac arrhythmia. 3. Normal blood pressure and heart rate response. 4. Sestamibi/sestamibi perfusion scan pending; see separate report. Electronically Signed On 07-18-2023 16:47:57 TRANSPORTATION SUPERVISOR by Karen Chun M.D. [id number]
[2023-07-18] MEDS: regadenoson 0.4 Mg/5 ml Syringe IVP (11:37)
[2023-07-18 11:46] VITALS: BP 130/89; PULSE 75
== END 2023-07-18 09:45 | disposition home or self-care (01) ==
LOC: CDL 09:44
PROVIDERS: PCP Physician Assistant; Visit Provider Family Medicine
DX: R07.9 Chest pain, unspecified (principal)
CPT/HCPCS: 36415; 78452; 88305; 93017; 96374; A9500; J2785

== ENCOUNTER → 2023-07-30 09:37 | Outpatient (BNVA) | payer MEDICAID, SELFPAY | PROVIDERS: PCP Physician Assistant; Visit Provider Anesthesiology Pain Medicine | DX: M51.16 Intervertebral disc disorders with radiculopathy, lumbar region (principal); M48.062 Spinal stenosis, lumbar region with neurogenic claudication; M43.16 Spondylolisthesis, lumbar region; Z98.1 Arthrodesis status | CPT/HCPCS: 99214 ==

== ENCOUNTER → 2023-08-23 10:22 | Outpatient (BNVA) | payer MEDICAID, SELFPAY | PROVIDERS: PCP Physician Assistant; Visit Provider Anesthesiology Pain Medicine | DX: M51.16 Intervertebral disc disorders with radiculopathy, lumbar region (principal); M48.062 Spinal stenosis, lumbar region with neurogenic claudication; M43.16 Spondylolisthesis, lumbar region | CPT/HCPCS: 99214 ==

== ENCOUNTER 2023-09-14 09:25 | Outpatient (CLI) | payer MEDICAID, SELFPAY ==
--- NOTE | 2023-09-14 09:30 | FL_ITS ---
WS: [id number] [place] barium swallow [id number] REASON FOR EXAM: DYSPHAGIA,PHARYNGEAL PHASE FLUOROSCOPY TIME: 1min [id number] # OF SPOT FILMS: Multiple FINDINGS: Patient was examined in the upright AP and lateral, prone DING, and supine positions. The swallowing of barium was monitored fluoroscopically and multiple spot films were obtained. The cervical esophagus demonstrated normal motility and anatomy. No extrinsic impingement was identif ied. No significant narrowing noted. The thoracic esophagus demonstrated mild episodes of dysmotility with weakening of the primary perist altic wave with retention of barium in the midesophagus. This is cleared with additional swallowing m otion without barium. Small reducible hiatal hernia without stricture or reflux. IMPRESSION: Minimal esophageal dysmotility.
== END 2023-09-14 09:26 | disposition home or self-care (01) ==
PROVIDERS: PCP Physician Assistant; Visit Provider Otolaryngology
DX: R13.13 Dysphagia, pharyngeal phase (principal)
CPT/HCPCS: 74220

== ENCOUNTER 2023-09-19 13:13 | Outpatient (CLI) | payer MEDICAID, SELFPAY ==
--- NOTE | 2023-09-19 | FL_ITS ---
Exam: [place] barium swallow modifd [id number] Date/Time of Exam: 09/19/2023 1:30 PM Reason For Exam: Oral dysphagia Fluoroscopy time: Modified barium swallow test was performed in conjunction with the speech therapy service. Oral pharyngeal phase of swallowing was normal. The patient tolerated all consistencies of barium mixture foodstuffs without aspiration or penetration. The patient ingested a barium tablet without difficulty or complication. IMPRESSION: 1. Unremarkable modified barium swallow study. No aspiration or penetration noted. A report and recommendations will also follow from the speech therapy service. MTDD
== END 2023-09-19 13:14 | disposition home or self-care (01) ==
LOC: RAD 13:14
PROVIDERS: PCP Physician Assistant; Visit Provider Otolaryngology
DX: R13.11 Dysphagia, oral phase (principal)
CPT/HCPCS: 74230; 92611

== ENCOUNTER → 2023-11-27 10:18 | Outpatient (BNVA) | payer MEDICAID, SELFPAY | PROVIDERS: PCP Physician Assistant; Visit Provider Anesthesiology Pain Medicine | DX: M51.16 Intervertebral disc disorders with radiculopathy, lumbar region (principal); M48.062 Spinal stenosis, lumbar region with neurogenic claudication; M43.16 Spondylolisthesis, lumbar region | CPT/HCPCS: 99214 ==

== ENCOUNTER 2024-01-29 12:00 | Outpatient (CLI) | payer MEDICAID, SELFPAY | END 2024-01-29 12:01 | disposition home or self-care (01) | LOC: SLEEP 01-30 12:48 | PROVIDERS: PCP Physician Assistant; Visit Provider Physician Assistant | DX: G47.33 Obstructive sleep apnea (adult) (pediatric) (principal) | CPT/HCPCS: G0399 ==

== ENCOUNTER → 2024-02-20 10:30 | Outpatient (BNVA) | payer MEDICAID, SELFPAY | PROVIDERS: PCP Physician Assistant; Visit Provider Anesthesiology Pain Medicine | DX: M48.062 Spinal stenosis, lumbar region with neurogenic claudication (principal); M51.16 Intervertebral disc disorders with radiculopathy, lumbar region; M43.16 Spondylolisthesis, lumbar region | CPT/HCPCS: 99214 ==

== ENCOUNTER 2025-05-25 17:37 | Emergency (ER) | payer MEDICAID, SELFPAY ==
[2025-05-25 17:41] VITALS: BP 170/106; PULSE 91; RESP 19; TEMP 36.4; O2SAT 98
--- OUTSIDE RECORDS SUMMARY | 2025-05-25 17:41 | XMS_ITS | Patient Health Record ---
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 Name Role Phone Dai Luther Primary Care Provider Ron Daniels Unavailable [phone] Tank Beckett Unavailable Unavailable Allergies Allergen (clinical drug ingredient) Drug/Non Drug Allergy documented on EMR Reaction Allergy Type Onset Date Status Opiates (uncoded) Unknown Allergy Ac tive Codeine-Brompheniram ine Unknown Drug Allergy Active Pineapple Concentrate Unknown Drug Allergy Active Seasonale Unknown Drug Allergy Active Sudafed Unknown Drug Allergy Active Pineapple Extract Unknown Drug Allergy Active Statins Support Unknown Drug Allergy A ctive codeine codeine Unknown Drug Allergy Active Morphine and Related Unknown Drug Allergy Active pseudoephedrine Sudafed (pseudoephedrine) Unknown Drug Allergy Active Reason For Referral No Information Medications Medication SIG (Take, Route, Frequency, Duration) Notes Start Date End Date Status NexIUM 20 MG Capsule Delayed Release 1 capsule Orally Once a day Active Gabapentin 300 MG Capsule 1 capsule Oral ly TID Active CoQ-10 30 MG Capsule 1 capsule with a meal Orally Once a day Active Propranolol HCl 10 MG Tablet 1 tablet Orally Once a day Active Cyclobenzaprine HCl 10 MG Tablet 1 tablet at bedtime as needed Orally Once a day Active methylPREDNISolone 4 MG Tablet 1 tablet with food or milk Orally every 12 hrs Active Robaxin-750 750 MG Tablet 1 tablet Orall y every 6 hours; Duration: 30 day(s) 04/06/2020 Active Isosorbide Mononitrate 20 MG Tablet 1 tablet Orally three x a day Active Aspirin 81 81 MG Tablet Chewable 1 tablet Orally Once a day; Duration: 30 day(s) 03/02/2020 Active Lisinopril-hydroCHLOROthiaz sirisha 10-12.5 MG Tablet 1 tablet Orally Once a day Active Nitroglycerin 0.4 MG Tablet Sublingual as directed Sublingual Active Robaxin-750 750 MG Tablet 1 tablet Orall y every 6 hrs; Duration: 15 days 03/29/2020 Active ProAir HFA 108 (90 Base) MCG/ACT Aerosol Solution 2 puff as needed Inhalation every 4 hrs Active Claritin 10 MG Tablet 1 tablet Orally Once a day Active Hall 10-325 MG Tablet 1 tablet as neede d Orally every 6 hrs; Duration: 15 days 03/18/2020 Active Aleve 220 MG Capsule 1 capsule with food or milk as needed Orally every 12 hrs Active dexAMETHasone 4 MG Tablet 1 tablet Orall y see instructions; Duration: 6 day(s) 1 po tid x 2 days, 1 po bid x 2 days, 1 po qd x 2 days 03/18/2020 Active Cyanocobalamin 1000 MCG/ML Solution 1 ml Injection Active Robaxin-750 750 MG Tablet 1 tablet Orall y every 8 hours; Duration: 30 day(s) 05/04/2020 Active Social History Tobacco Use: Social History Observation Description Date Details (start date - stop date) Current Smoker NA - NA Social History Depression Screening Social Info Question Answer Notes PHQ-9 Little interest or pleasure in doing thin gs Not at all Feeling down, depressed, or hopeless Several day s Trouble falling or staying asleep, or sleeping t oo much Nearly every day Feeling tired or having little energy Not at all Poor appetite or overeating Not at all Feeling bad about yourself, or that you are a failure, or have let yourself or your family down Not at all Trouble concentrating on thi ngs, such as reading the newspaper or watching television Not at all Moving or speaking so slowly that other people could have noticed. Or the opposite ? being so fidgety or restless that you have been moving around a lot more than usual Not at all Thoughts that you would be b tim off , or of hurting yourself in some way Not at all Total Score 4 Interpretation Minimal Depression Drugs/Alcohol: Social Info Question Answer Notes Alcohol Screen (Audit-C) Did you have a drink containing alcohol in the past year? No Points 0 Interpretation Negative Drugs Have you used drugs other than those for medical reasons in the past 12 months? Yes Tobacco Use: Social Info Question Answer Notes xTobacco Use/Smoking Are you a current smoker How often do you smoke cigarettes? every day How many cigarettes a day do you smoke? 11-20 Additional Details Category Social Info Options Details zzMigrated Social History Tobacco Use: (Tobacco Use/Smoking):Are you a:: current every day smoker , Additional Findings: Tobacco User: Heavy cigarette smoker (20-39 cigs/day) ; Section Notes: current smoker current smoker Problems Problem Type SNOMED Code ICD Code Onset Dates Problem Status W/U Status Risk Notes Problem Morbid obesity (disorder) (915354620) Morbid (severe) obesity due to excess calories (E66.01) Active confirmed Problem Paresthesia (finding) (32793862) Paresthesia of skin (R20.2) Active confirmed Problem Body mass index 40+ - severely obese (211694042) Body mass index (BMI) 40.0-44.9, adult (Z68.41) Active confirmed Problem Counseling about tobacco use (685059887) Tobacco abuse counseling (Z71.6) Active confirmed Problem Atherosclerotic heart disease of [place] coronary artery without angina pectoris (615329438713021) Coronary artery disease involving [place] coronary artery of [place] heart without angina pectoris (I25.10) Active confirmed Problem Tobacco abuse (1689562694) Tobacco abuse (Z72.0) Active confirmed Problem Chronic bronchitis (70097748) Chronic bronchitis, unspecified chronic bronchitis type (J42) Active confirmed Problem Shortness of breath (916175733) Shortness of breath (R06.02) Active confirmed [id number] Problem Chest pain (16201617) Chest pain, unspecified (R07.9) Active confirmed [id number] med Description:Belen st pain Problem Abnormal results of cardiovascular function studies (508769012) Abnormal result of other cardiovascular function study (R94.39) Active confirmed [id number] med Description:Car diovascular stress test abnormal Problem Mixed hyperlipidemia (234293351) Mixed hyperlipidemia (E78.2) Active confirmed [id number] med Description:Mix ed hyperlipidemia Problem Essential hypertension (89098989) Essential primary hypertension (I10) Active confirmed [id number] med Description:Ashish ign essential hypertension Plan Of Treatment Pending Test Test Name Order Date Culture Abscess [id number] 03/04/2020 Lumbosacral Spine AP/Lat-87965 0 Lumbosacral Spine AP/Lat-81251 0 MRI Lumbar Spine w/o Cont-[id number] 06/17/20 20 XR Outside CD 01/20/2020 zzzCT Outside CD 02/24/2020 zzzMRI Outside CD 02/24/2020 Medications Administered Medication Instructions Date of Administration Dosage Notes zzDexamethasone 03/18/2020 8 mg Remediation Technician: [facility] [place]: [id number]. Available Vials come in 10 mg per 1 ml. 0.2 ML wasted to equal desired dose of 8mg. Patient tolerated injection well. Thank you . zzToradol (Ketorolac Tromethamine) 03/18/2020 30 mg Remediation Technician: [facility] ND: [id number] Patient tolerated injections well. Medical (General) History Medical History History ICD Code Chicken Pox Pneumonia Back Trouble HBP Asthma Surgical History Surgery Date(Month/Year) Lumbar laminectomy 03/2020 cholecystectomy tubal 1994 shoulder arthroscopy shoulder 2007 tubal ligation gallbladder 2012 Hospitalization History Reason Date(Month/Year) gallbladder 2012
--- OUTSIDE RECORDS SUMMARY | 2025-05-25 17:41 | XMS_ITS | Clinical Summary ---
Author Organization [facility] Address [address] [address] Phone Care Team Providers Care Columnist Name Role Phone Unavailable Primary Care Provider Unavailabl e Allergies Active Allergy Reactions Criticality Noted Date Comments Codeine Anaphylaxis High 08/16/2023 Codeine Sulfate Anaphylaxis High 02/19/2024 Niacin Muscle Pain Medium 02/19/2024 Pseudoephedrine Hallucination Low 08/16/2023 Feels like bugs crawling under skin Pseudoephedrine Hcl Other (See Comments) 2023 Zxnwcfw-Nig-Pmr Reductase Inhibitors Muscle Pain Medium 11/10/2020 Medications amLODIPine (NORVASC) 5 mg tablet Take 5 mg by mouth daily. 07/04/20 Active Symbicort 160-4.5 mcg/actuation HFA Aerosol Inhaler Take 2 Puffs by inhalation 2 times daily. 07/04/20 Active buPROPion HCL (WELLBUTRIN SR) 150 mg Sustained Release 12 hour tablet Take 150 mg by mouth daily. 07/04/20 Active cyanocobalamin (VITAMIN B-12) 1,000 mcg/mL Solution Inject 1,000 mcg by intramuscular injection every 30 days. 06/08/20 23 Active escitalopram oxalate (LEXAPRO) 10 mg tablet Take 10 mg by mouth daily. 07/04/20 Active gabapentin (NEURONTIN) 600 mg tablet Take 600 mg by mouth 3 times daily. 07/04/20 23 Active isosorbide mononitrate (IMDUR) 60 mg Extended Release 24 hour tablet Take 1 Tablet by mouth daily. 07/04/20 Active lisinopril-hydroC HLOROthiazide (ZESTORETIC) 20-25 mg tablet Take 1 Tablet by mouth daily. 07/04/20 Active nicotine (NICODERM CQ) 21 mg/24 hr patch Apply 1 Patch to skin as directed every 24 hours. 07/11/20 Active nitroglycerin (NITROSTAT) 0.4 mg Tablet, Sublingual DISSOLVE 1 TABLET UNDER THE TONGUE EVERY 5 MINUTES NEEDED FOR CHEST PAIN. DO NOT EXCEED A TOTAL OF 3 DOSES IN 15 MINUTES. 07/11/20 Active propranoloL (INDERAL) 10 mg tablet Take 1 Tablet by mouth 2 times daily. 07/04/20 Active rOPINIRole (REQUIP) 4 mg Tablet Take 1 Tablet by mouth daily. 07/11/20 Active BD Luer-Kody Syringe 3 mL 25 gauge x 1 Syringe use as directed 07/04/20 Active tiZANidine (ZANAFLEX) 4 mg Tablet Take 4 mg by mouth every 8 hours as needed for Spasm. 07/11/20 Active HYDROcodone-aceta minophen (NORCO) 10-325 mg TabletIndications :Lumbar radiculopathy Take 1 Tablet by mouth every 6 hours as needed for Pain, Moderate. Max Daily Amount: 4 Tablets 20 Tablet 03/12/20 Active naloxone (NARCAN) 4 mg/spray [place], Non-Aerosol EMERGENCY USE ONLY: Administer 1 spray (4 mg) in one nostril one time. May repeat in alternating nostrils every 2-3 min until responsive or EMS arrives. 2 Each 3 03/12/20 Active ondansetron (Zofran) 4 mg Tablet Take 1 Tablet (4 mg) by mouth every 8 hours as needed for Nausea/Emesis. 30 Tablet 11 05/21/20 24 Active rizatriptan (Maxalt) 10 mg Tablet Take 1 Tablet (10 mg) by mouth every 2 hours as needed for Migraine. may repeat in 2 hours; max dose 30mg in 24 hours 8 Tablet 11 06/03/20 24 Active amitriptyline (ELAVIL) 10 mg tablet Take 1 Tablet (10 mg) by mouth daily at bedtime. 30 Tablet 11 10/07/20 24 Active Active Problems Problem Noted Date Diagnosed Date Intractable chronic migraine without aura and without status migrainosus 05/21/2024 Cervicogenic headache 05/21/2024 Hx of coronary artery disease 05/21/2024 Hx of chest pain 05/21/2024 Encounters Date Type Department Care Team Description 04/07/2025 External Device Data [facility]STRACTION Provider, Abstract 03/18/2025 External Device Data [facility]STRACTION Provider, Abstract 03/17/2025 External Device Data [facility]STRACTION Provider, Abstract from Last 3 Months Social History Tobacco Use Types Packs/Day Years Used Date Smoking Tobacco: Every Day Cigarettes Tobacco Cessation:Ready to Q uit: Not Asked; Counseling Given: Not Answered Alcohol Use Standard Drinks/Week Comments Never 0 (1 standard drink = 0.6 oz pur e alcohol) Feeling Safe Answer Date Recorded Are you in a relationship wi th someone who hurts you emotionally and/or physically? No 03/12/2024 Comments No Sex and Gender Information Value Date Recorded Sex Assigned at Not on file Legal Sex Female 9:23 PM CDT Gender Identity Not on file Sexual Orientation Not on file Last Filed Vital Signs Vital Sign Reading Time Taken Comments Blood Pressure 118/78 06/19/2024 12:03 PM CDT Pulse 63 06/19/2024 12:03 PM CDT Temperature 37 C (98.6 F) 03/12/2024 10:00 AM CDT Respiratory Rate 16 03/12/2024 10:30 AM CDT Oxygen Saturation 96% 06/19/2024 12:03 PM CDT Inhaled Oxygen Concentration - - Weight 125.6 kg (277 lb) 06/19/2024 12:03 PM CDT Height 165.1 cm (5' 5 ) 06/19/2024 12:03 PM CDT Body Mass Index 46.1 06/19/2024 12:03 PM CDT Plan of Treatment Health Maintenance Due Date Last Done Comments Pre-Diabetes and Diabetes Screening 1968 HEPATITIS B VACCINES (1 of 3 - 19+ 3-dose series) 11/02 Preventative Visit-Managed Medicaid 11/29/1987 HPV/Cotest (21-29) 1989 CERVICAL CANCER SCREENING 1998 HPV/Cotest (30-65) 1998 PAP SMEAR 1998 BREAST CANCER SCREENING 2008 COLORECTAL SCREENING 2013 Colorectal Cancer Screening 2013 FIT-DNA Q 3 years 2013 FIT/FOBT Q 1 year 2013 Flex Sig/CT Colonography Q 5 years 2013 ZOSTER VACCINE (1 of 2) 2018 INFLUENZA VACCINE (#1) 2025 DTAP/TDAP/TD VACCINES (2 - Td or Tdap) 02/27/2029 Medical Devices Implanted Type Area Nightman Device Identifier Shelf Expiration Date Model / Serial / Lot [place] Lead Swiftloc [id number] - Sn/A Implanted:Qty: 2 on 03/12/2024 by Alida Ochoa DO at [facility] [place] N/A: Back [facility] 10/23/2024 1192ANS / N/A / [id number] Lead Octrode Kit 3186 - [id number] Implanted:Qty: 1 on 03/12/2024 by Alida Ochoa DO at [facility] Lead N/A: Back [facility] 02/11/2026 [id number] / [id number] / N/A Lead Octrode Kit 3186 - [id number] Implanted:Qty: 1 on 03/12/2024 by lAida Ochoa DO at [facility] Lead N/A: Back [facility] 02/18/2026 [id number] / [id number] / Johns Eterna Implantable Pulse Generator Ref # [id number] Implanted:Qty: 1 on 03/12/2024 by Alida Ochoa DO at [facility] N/A: Back 02/14/2026 / [id number] / NA Insurance MEDICAID [place] Advance Directives For more information, please contact: [phone] * Full Code (Latest Code Status on File) Date Activated Date Inactivated Comments 03/12/2024 7:24 AM 03/12/2024 1:24 PM
--- NOTE | 2025-05-25 19:20 | W.ED.NECK ---
HPI - Neck Pain/Injury General: Chief Complaint: Neck Pain/Injury Stated Complaint: head/neck pain Time Seen by Provider: 05/25/25 19:11 History of Present Illness: Patient is a 54-year-old female that has previous cervical spinal fusion, presents to the ED with severe global headache, temporal, posterior occipital, frontal, and cervical spine pain. She has blurry vision and photophobia. She has association nausea, and vomiting. She takes her rumatriptan at home for headaches, and states she has nearly went through an entire month supply in the last 5 days to no avail. She has ongoing headache. She came here by EMS, and and route received Dilaudid. She still continues to have severe pain despite the Dilaudid. Blood pressure 170/106 in triage. She states she has been able to take her antihypertensives. Onset (ago): day(s) (5) Severity scale (1-10): 10 Associated symptoms: Reports nausea Related Data Home Medications ?Medication ?Instructions ?Recorded ?Confirmed amlodipine 5 mg tablet 5 mg PO DAILY 08/02/21 02/20/24 nitroglycerin 0.4 mg sublingual 0.4 mg sublingual PRN PRN chest 08/05/21 02/20/24 tablet pain ropinirole 2 mg tablet 2 mg PO BEDTIME 03/01/22 02/20/24 budesonide-formoterol HFA 160 2 inh inhalation BID 07/06/23 02/20/24 mcg-4.5 mcg/actuation aerosol inhaler (Symbicort) cetirizine 10 mg tablet 10 mg PO BID PRN Allergic Symptoms 07/06/23 02/20/24 escitalopram oxalate 10 mg tablet 10 mg PO QAM 07/06/23 02/20/24 gabapentin 600 mg tablet 600 mg PO TID 07/06/23 02/20/24 propranolol 10 mg tablet 10 mg PO BID 07/06/23 02/20/24 Previous Rx's ?Medication ?Instructions ?Recorded albuterol sulfate 90 mcg/actuation 2 puff inhalation Q4H PRN 09/10/20 aerosol inhaler (ProAir HFA) Shortness Of Breath 30 days #1 unit aspirin 81 mg tablet,delayed 81 mg PO DAILY 30 days #30 tabs 09/10/20 release cyanocobalamin (vitamin B-12) 1,000 mcg IM Q30D 30 days #1 mL 01/08/21 1,000 mcg/mL injection solution isosorbide mononitrate 60 mg 60 mg PO DAILY 30 days #30 tabs 09/10/20 tablet,extended release 24 hr lisinopril 20 1 tab PO DAILY 30 days #30 tabs 09/10/20 mg-hydrochlorothiazide 25 mg tablet bupropion HCl 150 mg 24 hr tablet, 150 mg PO QAM #90 tabs 02/23/22 extended release (Wellbutrin XL) pantoprazole 40 mg tablet,delayed 40 mg PO DAILY #30 tabs 07/06/23 release topiramate 50 mg tablet 50 mg PO BID pain 30 days #60 tabs 08/23/23 hydrocodone 5 mg-acetaminophen 325 1 tab PO BID PRN pain 30 days #45 12/18/23 mg tablet tabs Allergies Allergy/AdvReac Type Severity Reaction Status Date / Time codeine Allergy Severe ALGY-Anaphy Verified 02/20/24 10:33 laxis pseudoephedrine (From Allergy Intermediate ALGY-Hives Verified 02/20/24 10:33 Sudafed) pravastatin Allergy Unknown Verified 02/20/24 10:33 Cqpwcng-AVW-EsG Reductase Allergy Unknown Verified 02/20/24 10:33 Inhibitor (Gaipbpk-Qld-Slh Reductase Inhibitor) Opioids - Morphine Analogues AdvReac Intermediate ADR-Vomitin Verified 02/20/24 10:33 g Review of Systems General: Reports: 10 or more systems reviewed and unremarkable except in HPI and below Const: Denies: fever(s) or chills Eyes: Reports: blurry vision ENMT: Denies: uvular edema Card: Denies: chest pain or orthopnea Resp: Denies: dyspnea, productive cough or wheezing GI: Reports: nausea and vomiting; Denies: abdominal pain Musc: Reports: joint pain, joint swelling, joint stiffness and limited range of motion Skin/Breast: Denies: rash, pruritus or dry skin Neuro: Denies: numbness in extremities or weakness in extremities Psych: Denies: anxiety Hilario/Lymph: Denies: easy bruising or easy bleeding PFS ED PFSH: Medical History (Updated 05/25/25 @ 21:44 by ROBERTO Craft) Bipolar 1 disorder Asthma PTSD (post-traumatic stress disorder) Hypercholesterolemia COPD (chronic obstructive pulmonary disease) Benign essential hypertension Adjustment disorder with depressed mood Spinal stenosis of lumbar region with radiculopathy Spondylolisthesis, lumbar region Morbid obesity with BMI of 45.0-49.9, adult Lumbar stenosis with neurogenic claudication Synovial cyst of lumbar spine Surgical History Status post colonoscopy (08/08/21) H/O local excision of skin lesion (08/08/21) History of lumbar laminectomy for spinal cord decompression Hx of spinal fusion History of cholecystectomy History of tubal ligation Family History Mother Diabetes Father Diabetes Denies family history of Dementia Cancer Social History Smoking and tobacco/nicotine status: former use of tobacco/nicotine Quit status (tobacco/nicotine): has tried quititng Number of times tried to quit tobacco: 11 Second hand smoke exposure: Yes Alcohol intake: never Substance/Drug Use: current Substance/Drug use frequency: daily Housing: House service: No Current occupational status: employed Current occupation: [employer] Physical Exam Const: COMMON NORMALS: no acute distress, average body habitus and patient oriented x3 HENMT: COMMON NORMALS: normocephalic and atraumatic HEAD & SCALP: normocephalic and atraumatic THROAT: no uvular edema Eye: COMMON NORMALS: Equal, round and reactive pupils present, EOMs intact bilaterally, conjunctivae normal, no scleral icterus and no papilledema CONJUNCTIVA: Yes conjunctivae normal PUPIL: Yes Equal, round and reactive pupils present DIRECT OPHTHALMOSCOPY: Yes no papilledema Neck/C-Spine: COMMON NORMALS: full ROM, no lymphadenopathy, supple, no meningeal signs and Thyroid normal GENERAL: Yes normal visual inspection, Yes trachea midline, No anterior neck swelling, No lymphadenopathy, No tender, No torticollis and No tracheal deviation THYROID: Thyroid normal and symmetrical Lymph: LYMPHATIC: no lymphadenopathy noted Chest: COMMONS NORMALS: normal inspection of the chest and normal palpation of entire chest wall Resp: COMMON NORMALS: normal respiratory effort, No retractions and clear to auscultation bilaterally AUSCULTATION: clear to auscultation bilaterally Cardio: COMMON NORMALS: regular rate and regular rhythm RATE: regular rate RHYTHM: regular rhythm GI: COMMON NORMALS: Normal to inspection, nondistended, normoactive bowel sounds present, Soft to palpation and non-tender PALPATION: Yes Soft to palpation : COMMON NORMALS: Yes no CVA tenderness BLADDER/KIDNEY EXAM: Yes no CVA tenderness Back/Pelvis: COMMON NORMALS: no CVA tenderness Neuro: COMMON NORMALS: patient oriented x3 and CN's II-XII intact bilaterally MENINGEAL SIGNS: Yes no meningeal signs Psych: COMMON NORMALS: mental status grossly normal, Normal thought process present and cooperative THOUGHT PROCESS: Normal thought process present Course Vital Signs: Vital signs: Vital Signs Temperature 97.6 F 05/25/25 17:41 Pulse Rate 91 05/25/25 17:41 Respiratory Rate 19 H 05/25/25 17:41 Blood Pressure 170/106 05/25/25 17:41 Pulse Oximetry 98 05/25/25 17:41 Oxygen Delivery Me thod Room Air 05/25/25 17:41 MDM - Neck Pain/Injury Medical Decision Making Patient is a 54-year-old female with status post cervical neck fusion that presented to the ED due to severe headache, global, and neck pain, ongoing for 5 days. Her associated symptoms of nausea, and vomiting. Her triptan does not seem to help. Patient had Dilaudid on the way in by EMS. She states she has association of blurry vision. Will obtain CT of head and neck. She has not had any injury. When I first met patient, she had a blanket over her head due to the pain. She was rocking back and forth. Toradol, dexamethasone, and Norflex were given. On reevaluation, she was up, sitting upright in the bed, texting on her phone, however stated she still had pain. She did state it was grossly better at least 50%. Nonverbal pain score is 2?3. She will be discharged home given her negative CT of her head and neck. All of her questions answered satisfaction. She is planning on following up with her headache doctor. I have also encouraged her to continue her antihypertensive medications. I was notified by nurses that patient was having worsening symptoms. At the time of worsening symptoms, she could not find a ride at that time. I went to approach the patient, and nurse stopped me because patient was feeling better, and found a ride. Medical Records I reviewed the patient's medical records. Lab Data I reviewed the patient's lab results. Radiology Impressions Cervical Spine CT 05/25/25 19:21 IMPRESSION: No definite acute fracture. Degenerative changes as above. Head CT 05/25/25 19:21 IMPRESSION: No definite acute intracranial abnormality. All radiology interpretation(s) finalized by discharge Discharge Plan Discharge Patient Disposition: Home Clinical Impression: Migraine Qualifiers: Migraine type: migraine (< 15 days per month) with aura Status migrainosus presence: with status migrainosus Intractability: not intractable Qualified Code(s): G43.101 - Migraine with aura, not intractable, with status migrainosus Condition: Stable Prescriptions: No Action topiramate 50 mg tablet 50 mg PO BID 30 Days Qty: 60 0RF bupropion HCl [Wellbutrin XL] 150 mg tablet extended release 24 hr 150 mg PO QAM Qty: 90 0RF hydrocodone-acetaminophen 5-325 mg tablet 1 tab PO BID PRN (Reason: pain) 30 Days Qty: 45 0RF amlodipine 5 mg Tablet 5 mg PO DAILY aspirin 81 mg Tablet,Delayed Release (Dr/Ec) 81 mg PO DAILY 30 Days Qty: 30 1RF isosorbide mononitrate 60 mg tablet extended release 24 hr 60 mg PO DAILY 30 Days Qty: 30 1RF cyanocobalamin (vitamin B-12) 1,000 mcg/mL solution 1,000 mcg IM Q30D 30 Days Qty: 1 1RF lisinopril-hydrochlorothiazide 20-25 mg tablet 1 tab PO DAILY 30 Days Qty: 30 1RF albuterol sulfate [ProAir HFA] 90 mcg/actuation HFA aerosol inhaler 2 puff INHALATION Q4H PRN (Reason: Shortness Of Breath) 30 Days Qty: 1 1RF nitroglycerin 0.4 mg tablet, sublingual 0.4 mg sublingual PRN PRN (Reason: chest pain) Rx Instructions: Every 5 minutes max 3 doses in 15 minutes for anginal pain ropinirole 2 mg tablet 2 mg PO BEDTIME gabapentin 600 mg tablet 600 mg PO TID propranolol 10 mg tablet 10 mg PO BID escitalopram oxalate 10 mg tablet 10 mg PO QAM cetirizine 10 mg tablet 10 mg PO BID PRN (Reason: Allergic Symptoms) Symbicort 160-4.5 mcg/actuation HFA aerosol inhaler 2 inh INHALATION BID pantoprazole 40 mg tablet,delayed release (DR/EC) 40 mg PO DAILY Qty: 30 0RF Discharge Orders: Discharge ED (Routine); Ordered 05/25/25 Ordered By: Faviola Parra Referrals: Dai Stark PA [Primary Care Provider, [facility]] Discharge Diet: Usual diet and Clear Liquid Discharge Activity: Resume usual activity Patient Instructions: Migraine Headache (ED), Patient Portal & Peter Instructions Activity Restrictions/Additional Instructions: - No additional findings were noted on CT of your head and neck -Call your doctor tomorrow to follow-up regarding your headaches. - You can take Benadryl, I recommend liquid Benadryl every 6 hours as needed. -Take your blood pressure medication as prescribed. - Return to the ED if you have your headache ongoing/returns severely, or you have a temperature 100.4 ?F, for further workup. Print Language: Malay Coding Level of Care Code ED Accounts Payable Technician for Alfredo Al
--- NOTE | 2025-05-25 19:21 | CTR_ITS ---
PROCEDURE INFORMATION: Exam: CT Cervical Spine Without Contrast Exam date and time: 05/25/2025 7:49 PM Age: 54 years old Clinical indication: Neck pain; Prior surgery; Surgery date: 6+ months; Surgery type: C spine TECHNIQUE: Imaging protocol: Computed tomography of the cervical spine without contrast. Radiation optimization: All CT scans at this facility use at least one of these dose optimization techniques: automated exposure control; mA and/or kV adjustment per patient size (includes targeted exams where dose is matched to clinical indication); or iterative reconstruction. COMPARISON: MR cervical spin wo con* [id number] 07/01/2021 2:00 PM RADIATION DOSE METRICS: Total DLP (mGy-cm): 275.2 FINDINGS: Bones: Moderate facet arthropathy. Postsurgical changes of C5, C6, and C7. Neural foramina narrowing, mild at C2-C3 on the left, mild at C3-C4 on the right, moderate at C 5-6 bilaterally, moderate at C6-C7 bilaterally. Lungs: Lung apices are normal. Vasculature: aortic and carotid atherosclerosis. Soft tissues: Unremarkable. CT/CT cervical spin wo con* [id number] IMPRESSION: No definite acute fracture. Degenerative changes as above.
--- NOTE | 2025-05-25 19:21 | CTR_ITS ---
PROCEDURE INFORMATION: Exam: CT Head Without Contrast Exam date and time: 05/25/2025 7:49 PM Age: 54 years old Clinical indication: Pain; Headache not specified TECHNIQUE: Imaging protocol: Computed tomography of the head without contrast. Radiation optimization: All CT scans at this facility use at least one of these dose optimization techniques: automated exposure control; mA and/or kV adjustment per patient size (includes targeted exams where dose is matched to clinical indication); or iterative reconstruction. COMPARISON: MR cervical spin wo con* [id number] 07/01/2021 2:00 PM RADIATION DOSE METRICS: Total DLP (mGy-cm): 1086.8 FINDINGS: Brain: See Cerebral ventricles finding. Cerebral ventricles: Mild involutional changes of the ventricles and sulci. Paranasal sinuses: Mild posterior ethmoid sinus disease. Mastoid air cells: Visualized mastoid air cells are well aerated. Bones: Unremarkable. No acute fracture. Soft tissues: Unremarkable. CT/CT head wo con* [id number] IMPRESSION: No definite acute intracranial abnormality.
[2025-05-25] MEDS: orphenadrine 30 mg/mL Inj 2 mL 60 MG IV (20:52)
[2025-05-25] MEDS: diphenhydrAMINE 50 mg/mL SDV 1mL IVP (22:05)
== END 2025-05-25 22:40 | disposition home or self-care (01) ==
PROVIDERS: Emergency Provider Physician Assistant; PCP Physician Assistant
DX: G43.101 Migraine with aura, not intractable, with status migrainosus (principal); Z79.82 Long term (current) use of aspirin; Z87.891 Personal history of nicotine dependence; J44.9 Chronic obstructive pulmonary disease, unspecified
CPT/HCPCS: 70450; 72125; 96374; 96375; 99285; J1100; J1200; J1885; J2360

== ENCOUNTER 2025-05-26 01:32 | Emergency (ER) | payer MEDICAID, SELFPAY ==
--- OUTSIDE RECORDS SUMMARY | 2025-05-26 01:36 | XMS_ITS | Clinical Summary ---
Author Organization [facility] Address [address] [address] Phone Care Team Providers Care Door Machine Operator Name Role Phone Unavailable Primary Care Provider Unavailabl e Allergies Active Allergy Reactions Criticality Noted Date Comments Codeine Anaphylaxis High 08/16/2023 Codeine Sulfate Anaphylaxis High 02/19/2024 Niacin Muscle Pain Medium 02/19/2024 Pseudoephedrine Hallucination Low 08/16/2023 Feels like bugs crawling under skin Pseudoephedrine Hcl Other (See Comments) 2023 Jmurjnd-Pnq-Hcc Reductase Inhibitors Muscle Pain Medium 11/10/2020 Medications [...] Tablet 03/12/20 Active naloxone (NARCAN) 4 mg/spray [place], Non-Aerosol EMERGENCY USE ONLY: Administer 1 spray [...] of 3 - 19+ 3-dose series) 11/02 HPV/Cotest (21-29) 1989 CERVICAL CANCER SCREENING 1998 [...] Tdap) 02/27/2029 Medical Devices Implanted Type Area Screw Remover Device Identifier Shelf Expiration Date Model / Serial / Lot [place] Lead Swiftloc [id number] - Sn/A Implanted:Qty: 2 on 03/12/2024 by Alida Ochoa DO at [facility] [place] N/A: Back [facility] 10/23/2024 1192ANS / N/A / [id number] Lead Octrode Kit 3186 - [id number] Implanted:Qty: 1 on 03/12/2024 by Alida Ochoa DO at [facility] Lead N/A: Back [facility] 02/11/2026 [id number] / [id number] / N/A Lead Octrode Kit 3186 - [id number] Implanted:Qty: 1 on 03/12/2024 by Alida Ochoa DO at [facility] Lead N/A: Back [facility] 02/18/2026 [id number] / [id number] / [employer] Implantable Pulse Generator Ref # [id number] Implanted:Qty: 1 on 03/12/2024 by Alida Ochoa DO at [facility] N/A: Back 02/14/2026 / [id number] / NA Insurance [place]ID [place] Advance Directives For more information, please contact: [phone] * Full Code (Latest Code Status on File) Date Activated Date Inactivated Comments 03/12/2024 7:24 AM 03/12/2024 1:24 PM
--- OUTSIDE RECORDS SUMMARY | 2025-05-26 01:36 | XMS_ITS | Patient Health Record ---
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 Name Role Phone Dai Luther Primary Care Provider Ron Daniels Unavailable [phone] Tank Beckett Unavailable Unavailable Allergies Allergen (clinical [...] 1 tablet Orally Once a day Active [place] 10-325 MG Tablet 1 tablet as neede [...] Status Risk Notes Problem Morbid obesity (disorder) (557033749) Morbid (severe) obesity due to excess calories (E66.01) Active confirmed Problem Paresthesia (finding) (41906527) Paresthesia of skin (R20.2) Active confirmed Problem Body mass index 40+ - severely obese (932094336) Body mass index (BMI) 40.0-44.9, adult (Z68.41) Active confirmed Problem Counseling about tobacco use (378896883) Tobacco abuse counseling (Z71.6) Active confirmed Problem Atherosclerotic heart disease of [place] coronary artery without angina pectoris (753196059573801) Coronary artery disease involving [place] coronary artery of [place] heart without angina pectoris (I25.10) Active confirmed Problem Tobacco abuse (0674101946) Tobacco abuse (Z72.0) Active confirmed Problem Chronic bronchitis (50439271) Chronic bronchitis, unspecified chronic bronchitis type (J42) Active confirmed Problem Shortness of breath (348660970) Shortness of breath (R06.02) Active confirmed [id number] Problem Chest pain (67698216) Chest pain, unspecified (R07.9) Active confirmed [id number] med Description:[place] st pain Problem Abnormal results of cardiovascular function studies (533801924) Abnormal result of other cardiovascular function study (R94.39) Active confirmed [id number] med Description:Car diovascular stress test abnormal Problem Mixed hyperlipidemia (391194140) Mixed hyperlipidemia (E78.2) Active confirmed [id number] med Description:Mix ed hyperlipidemia Problem Essential hypertension (71314670) Essential primary hypertension (I10) Active confirmed [id number] med Description:Ashish ign essential hypertension Plan Of Treatment Pending Test Test Name Order Date Culture Abscess [id number] 03/04/2020 Lumbosacral Spine AP/Lat-85728 0 Lumbosacral Spine AP/Lat-53425 0 MRI Lumbar Spine w/o Cont-18128 06/17/20 20 XR Outside CD 01/20/2020 zzzCT Outside CD 02/24/2020 zzzMRI Outside CD 02/24/2020 Medications Administered Medication Instructions Date of Administration Dosage Notes zzDexamethasone 03/18/2020 8 mg Decal Applier: [facility] [place]: [phone]. Available Vials come in 10 mg per 1 ml. 0.2 ML wasted to equal desired dose of 8mg. Patient tolerated injection well. Thank you . zzToradol (Ketorolac Tromethamine) 03/18/2020 30 mg Decal Applier: [facility] [place]: [id number] Patient tolerated injections well. Medical (General) History Medical History History ICD Code Chicken Pox Pneumonia Back Trouble HBP Asthma Surgical History Surgery Date(Month/Year) gallbladder 2012 tubal ligation shoulder 2007 shoulder arthroscopy tubal 1994 cholecystectomy Lumbar laminectomy 03/2020 Hospitalization History Reason Date(Month/Year) gallbladder 2012
[2025-05-26 01:45] VITALS: BP 178/89; PULSE 94; RESP 17; TEMP 36.7; O2SAT 94; BMI 43.2
--- NOTE | 2025-05-26 01:54 | W.ED.HA ---
HPI - Headache General: Chief Complaint: Headache Stated Complaint: Headache\N Time Seen by Provider: 05/26/25 01:37 Source: patient Mode of arrival: ambulatory Limitations: no limitations History of Present Illness: 54-year-old female states she has been having headaches along with neck pain has been going on for the last few days. She is seen here earlier had normal imaging she states she had a return of her headache has some pain down her neck to denies any stiffness in her neck denies any fever does have a history of chronic neck pain. Related Data Home Medications ?Medication ?Instructions ?Recorded ?Confirmed amlodipine 5 mg tablet 5 mg PO DAILY 08/02/21 02/20/24 nitroglycerin 0.4 mg sublingual 0.4 mg sublingual PRN PRN chest 08/05/21 02/20/24 tablet pain ropinirole 2 mg tablet 2 mg PO BEDTIME 03/01/22 02/20/24 budesonide-formoterol HFA 160 2 inh inhalation BID 07/06/23 02/20/24 mcg-4.5 mcg/actuation aerosol inhaler (Symbicort) cetirizine 10 mg tablet 10 mg PO BID PRN Allergic Symptoms 07/06/23 02/20/24 escitalopram oxalate 10 mg tablet 10 mg PO QAM 07/06/23 02/20/24 gabapentin 600 mg tablet 600 mg PO TID 07/06/23 02/20/24 propranolol 10 mg tablet 10 mg PO BID 07/06/23 02/20/24 Previous Rx's ?Medication ?Instructions ?Recorded albuterol sulfate 90 mcg/actuation 2 puff inhalation Q4H PRN 09/10/20 aerosol inhaler (ProAir HFA) Shortness Of Breath 30 days #1 unit aspirin 81 mg tablet,delayed 81 mg PO DAILY 30 days #30 tabs 09/10/20 release cyanocobalamin (vitamin B-12) 1,000 mcg IM Q30D 30 days #1 mL 09/10/20 1,000 mcg/mL injection solution isosorbide mononitrate 60 mg 60 mg PO DAILY 30 days #30 tabs 09/10/20 tablet,extended release 24 hr lisinopril 20 1 tab PO DAILY 30 days #30 tabs 09/10/20 mg-hydrochlorothiazide 25 mg tablet bupropion HCl 150 mg 24 hr tablet, 150 mg PO QAM #90 tabs 02/23/22 extended release (Wellbutrin XL) pantoprazole 40 mg tablet,delayed 40 mg PO DAILY #30 tabs 07/06/23 release topiramate 50 mg tablet 50 mg PO BID pain 30 days #60 tabs 08/23/23 hydrocodone 5 mg-acetaminophen 325 1 tab PO BID PRN pain 30 days #45 12/18/23 mg tablet tabs Allergies Allergy/AdvReac Type Severity Reaction Status Date / Time codeine Allergy Severe ALGY-Anaphy Verified 02/20/24 10:33 laxis pseudoephedrine (From Allergy Intermediate ALGY-Hives Verified 02/20/24 10:33 Sudafed) pravastatin Allergy Unknown Verified 02/20/24 10:33 Totyoex-ZNC-AnL Reductase Allergy Unknown Verified 02/20/24 10:33 Inhibitor (Kzfwvue-Too-Azx Reductase Inhibitor) Opioids - Morphine Analogues AdvReac Intermediate ADR-Vomitin Verified 02/20/24 10:33 g PFSH ED PFSH: Medical History (Updated 05/26/25 @ 02:22 by Master Kowalski MD) Bipolar 1 disorder Asthma PTSD (post-traumatic stress disorder) Hypercholesterolemia COPD (chronic obstructive pulmonary disease) Benign essential hypertension Adjustment disorder with depressed mood Spinal stenosis of lumbar region with radiculopathy Spondylolisthesis, lumbar region Morbid obesity with BMI of 45.0-49.9, adult Lumbar stenosis with neurogenic claudication Synovial cyst of lumbar spine Surgical History Status post colonoscopy (08/08/21) H/O local excision of skin lesion (08/08/21) History of lumbar laminectomy for spinal cord decompression Hx of spinal fusion History of cholecystectomy History of tubal ligation Family History Mother Diabetes Father Diabetes Denies family history of Dementia Cancer Social History Smoking and tobacco/nicotine status: former use of tobacco/nicotine Quit status (tobacco/nicotine): has tried quititng Number of times tried to quit tobacco: 11 Second hand smoke exposure: Yes Alcohol intake: never Substance/Drug Use: current Substance/Drug use frequency: daily Housing: House service: No Current occupational status: employed 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 Physical Exam Const: COMMON NORMALS: no acute distress, patient oriented x3 and healthy appearing HENMT: COMMON NORMALS: normocephalic and atraumatic HEAD & SCALP: normocephalic and atraumatic Eye: COMMON NORMALS: Equal, round and reactive pupils present and EOMs intact bilaterally PUPIL: Yes Equal, round and reactive pupils present Neck/C-Spine: COMMON NORMALS: full ROM and supple GENERAL: No Meningeal signs present Chest: COMMONS NORMALS: normal inspection of the chest Resp: COMMON NORMALS: normal respiratory effort Cardio: COMMON NORMALS: regular rate RATE: regular rate Extremity: COMMON NORMALS: normal to inspection and full ROM Neuro: COMMON NORMALS: patient oriented x3, moves all extremities and no focal motor deficits Psych: COMMON NORMALS: mental status grossly normal, Normal thought process present and cooperative THOUGHT PROCESS: Normal thought process present Skin: COMMON NORMALS: no rashes or lesions noted and no wounds GENERAL SKIN EXAM: no rashes or lesions noted Course Vital Signs: Vital signs: Vital Signs Temperature 98.1 F 05/26/25 01:45 Pulse Rate 92 05/26/25 02:17 Respiratory Rate 17 05/26/25 01:45 Blood Pressure 178/89 05/26/25 02:17 Pulse Oximetry 94 05/26/25 02:17 Oxygen Delivery Me thod Room Air 05/26/25 02:17 MDM - Headache Medical Decision Making Patient presents here with headache is likely migraine headache she has no signs of meningitis her imaging earlier was negative white count here is negative did review her blood work with her she feels improved she stable for discharge follow-up with PCP return if worsening. Differential Diagnosis Likely migraine, tension headache, subarachnoid hemorrhage and meningitis Lab Data 05/26/25 00:12 Laboratory Results WBC 5.69 10^3/uL (3.29-11.43) 05/26/25 00:12 RBC 4.98 10^6/uL (3.85-5.65) 05/26/25 00:12 Hgb 15.00 g/dL (11.27-16.99) 05/26/25 00:12 Hct 44.6 % (36-47) 05/26/25 00:12 MCV 89.6 fl (85-98) 05/26/25 00:12 MCH 30.1 pg (27-33) 05/26/25 00:12 MCHC 33.6 g/dL (30-55) 05/26/25 00:12 RDW 13.1 % (12.1-15.1) 05/26/25 00:12 Plt Count 294 10^3/cmm (157-399) 05/26/25 00:12 MPV 9.3 fL (7.4-10.4) 05/26/25 00:12 Neut % (Auto) 79.7 % 05/26/25 00:12 Lymph % (Auto) 18.8 % 05/26/25 00:12 [place] % (Auto) 0.7 % 05/26/25 00:12 Eos % (Auto) 0.2 % 05/26/25 00:12 Baso % (Auto) 0.2 % 05/26/25 00:12 Neut # (Auto) 4.54 10^3/uL (1.8-7.7) 05/26/25 00:12 Lymph # (Auto) 1.1 10^3/uL (0.8-4.8) 05/26/25 00:12 [place] # (Auto) 0.0 10^3/uL (0.2-0.9) L 05/26/25 00:12 Eos # (Auto) 0.0 10^3/uL (0.0-0.8) 05/26/25 00:12 Baso # (Auto) 0.0 10^3/uL (0.0-0.1) 05/26/25 00:12 Nucleated RBC % (auto) 0 % 05/26/25 00:12 Nucleated RBCs # 0.0 /100WBC 05/26/25 00:12 No radiology studies performed this visit Discharge Plan Discharge Patient Disposition: Home Clinical Impression: Headache Condition: Stable Prescriptions: No Action topiramate 50 mg tablet 50 mg PO BID 30 Days Qty: 60 0RF bupropion HCl [Wellbutrin XL] 150 mg tablet extended release 24 hr 150 mg PO QAM Qty: 90 0RF hydrocodone-acetaminophen 5-325 mg tablet 1 tab PO BID PRN (Reason: pain) 30 Days Qty: 45 0RF amlodipine 5 mg Tablet 5 mg PO DAILY aspirin 81 mg Tablet,Delayed Release (Dr/Ec) 81 mg PO DAILY 30 Days Qty: 30 1RF isosorbide mononitrate 60 mg tablet extended release 24 hr 60 mg PO DAILY 30 Days Qty: 30 1RF cyanocobalamin (vitamin B-12) 1,000 mcg/mL solution 1,000 mcg IM Q30D 30 Days Qty: 1 1RF lisinopril-hydrochlorothiazide 20-25 mg tablet 1 tab PO DAILY 30 Days Qty: 30 1RF albuterol sulfate [ProAir HFA] 90 mcg/actuation HFA aerosol inhaler 2 puff INHALATION Q4H PRN (Reason: Shortness Of Breath) 30 Days Qty: 1 1RF nitroglycerin 0.4 mg tablet, sublingual 0.4 mg sublingual PRN PRN (Reason: chest pain) Rx Instructions: Every 5 minutes max 3 doses in 15 minutes for anginal pain ropinirole 2 mg tablet 2 mg PO BEDTIME gabapentin 600 mg tablet 600 mg PO TID propranolol 10 mg tablet 10 mg PO BID escitalopram oxalate 10 mg tablet 10 mg PO QAM cetirizine 10 mg tablet 10 mg PO BID PRN (Reason: Allergic Symptoms) Symbicort 160-4.5 mcg/actuation HFA aerosol inhaler 2 inh INHALATION BID pantoprazole 40 mg tablet,delayed release (DR/EC) 40 mg PO DAILY Qty: 30 0RF Discharge Orders: Discharge ED (Routine); Ordered 05/26/25 Ordered By: Master Kowalski Referrals: Dai Stark PA [Primary Care Provider, [facility]] - 4-7 days Discharge Diet: Advance as tolerated Discharge Activity: Resume usual activity Patient Instructions: Headache Print Language: Tanzanian Coding Level of Care Code ED Rate Marker for Alfredo Al
[2025-05-26 02:17] VITALS: BP 178/89; PULSE 92; O2SAT 94
[2025-05-26 02:18] LABS: Hematocrit 44.6 % (36-47); Hemoglobin 15.00 g/dL (11.27-16.99); Mean Corpuscular HGB Conc 33.6 g/dL (30-55); Mean Corpuscular Hemoglobin 30.1 pg (27-33); Mean Corpuscular Volume 89.6 fl (85-98); Nucleated Red Blood Cells % 0 %; Platelet Count 294 10^3/cmm (157-399); Red Blood Count 4.98 10^6/uL (3.85-5.65); White Blood Count 5.69 10^3/uL (3.29-11.43)
[2025-05-26] MEDS: diphenhydrAMINE 50 mg/mL SDV 1mL IM (02:23)
[2025-05-26] MEDS: metoclopramide 5 mg/mL SDV 2 mL 10 MG IM (02:24)
[2025-05-26 02:50] VITALS: BP 173/95; PULSE 99; O2SAT 94
[2025-05-26] MEDS: HYDROcodone-acetaminophen 5-325 mg Tablet 1 TAB PO (03:03)
== END 2025-05-26 03:05 | disposition home or self-care (01) ==
PROVIDERS: Emergency Provider Emergency Medicine; PCP Physician Assistant
DX: R51.9 Headache, unspecified (principal); Z79.82 Long term (current) use of aspirin; Z87.891 Personal history of nicotine dependence; J44.9 Chronic obstructive pulmonary disease, unspecified; I10 Essential (primary) hypertension
CPT/HCPCS: 36415; 85025; 96372; 99284; J1200; J1885; J2765; J9999

== ENCOUNTER 2025-05-26 20:44 | Inpatient (IN) | payer MEDICAID, SELFPAY ==
--- OUTSIDE RECORDS SUMMARY | 2018-10-21 03:40 | XMS_ITS | Continuity of Care Document ---
Author Organization [facility] Address [address] [place] [address] Phone Care Team Providers Care Director Of Special Events Name Role Phone Unavailable Unavailable Unavailable Allergies, Adverse Reactions, Alerts Substance Reaction Status Criticality Opioids - Morphine Analogues nausea vominting/rr Activ e No Information codeine anaphylaxis/rr Active No Informatio n OPIUM all opiates Active No Information PSEUDOEPHEDRINE HCL Active No Infor mation codeine Active No Information Medications Medication Instructions Dosage Effective Dates (start - stop) Status Comments ProAir HFA 90 mcg/actuation aerosol inhaler inhale 2 puff by inhalation route every 4 - 6 hours as needed - Active albuterol sulfate 2.5 mg/3 mL (0.083 %) solution for nebulization inhale 3 milliliter by nebulization route 3 times every day 2.5 MG - Active Tessalon Perles 100 mg capsule take 1 capsule by oral route 3 times every day x 7 days - Active Ventolin HFA 90 mcg/actuation aerosol inhaler inhale 2 puff by inhalation route every 4 - 6 hours as needed - Active lisinopril 10 mg tablet take 1 tablet by oral route every day 10 MG - Active hydrochlorothiazide 12.5 mg tablet take 1 tablet by oral route every day 12.5 MG - Active LIPITOR (unknown strength) take 1 tablet by oral route every day Not Available - Active ProAir HFA 90 mcg/actuation aerosol inhaler inhale 2 puff by inhalation route every 4 - 6 hours as needed - Active albuterol sulfate HFA 90 mcg/actuation aerosol inhaler inhale 2 puff by inhalation route every 4 - 6 hours as needed - Active Zithromax Z-Arnaldo 250 mg tablet take 2 tablet by oral route every day for 1 day then 1 tablet (250 mg) by oral route once daily for 4 days 500 MG - No Longer Active prednisone 20 mg tablet Take 2 tablets by mouth for 3 days, then 1 tablet by mouth for 3 days - No Longer Active Procedures Procedure Date Offic/outpt E&m Estab Mod-hi 2 19 Service(s) provided in the office during regularly Services provided in an urgent care [facility] Office Visit 019 Methylprednisolone Acetate-80mg 019 Therapeutic, Prophylactic, Or Diagnostic Inj Sub Q [facility] Individual Enrollment Offic/outpt E&m [facility] 7 Services provided in an urgent care [facility] Office Visit 017 Non Prescription Drugs Flu Rapid Immunoas; Flu Rapid Immunoas; Offic/outpt E&m Estab Mod-hi 2 17 Services provided in an urgent care [facility] Office Visit 017 Offic/outpt E&m [facility] 4 Service(s) provided in the office during regularly [facility] Office Visit 014 Services provided in an urgent care [facility] Indiviual Enrollment Advance Directives Directive Yes / No Effective Date File Name No Information Encounters Encounter Description Practice Location Reason(s) For Visit Diagnoses Date Provider Providers Copied on Encounter Offic/outpt E&m Estab Mod-hi 2 [facility], [address], [place], [place], [id number], [place] tel:[phone] [facility] cold symptoms (chief complaint) Hypertension, unspecified typeAcute bronchitis, unspecified organismAcute sinusitis, recurrence not specified, unspeciMild intermittent asthma with exacerbation 9 No Information Offic/outpt E&m [facility] 45 [facility], [address] [facility] [address], [place], [place], [id number], [place] tel:[phone] [facility] head injury (chief complaint) Scalp laceration, initial encounterScalp contusionScalp contusion 7 Shruthi Cintron. [address] [facility], [address], [place], [place], [id number], [place]. tel:[phone] Offic/outpt E&m [facility] 2 [facility], [address] [facility] [address], [place], [place], [id number], [place] tel:[phone] [facility] cold symptoms (chief complaint) Fever, unspecified fever causeACUTE BRONCHITIS, UNSPECIFIED ORGANISM 7 [facility]. [address], [address], [place], [address], [place]. tel:[phone] Offic/outpt E&m [address] [facility], [address] [facility] [address], [place], [place], [id number], [place] tel:[phone] [facility] sinus symptoms (chief complaint) Acute Sinusitis NosCoughHEADACHE Asthma 4 Lai [place]anan. [address], [address], [place], [address], [place]. tel:[phone] Family History Family Member Type Diagnosis Age At Onset Father Problem (finding) Family history of coronary arteriosclerosis Father Problem (finding) Family history of diabetes mellitus in first degree relative Mother Problem (finding) Family history of diabetes mellitus in first degree relative Mother Problem (finding) Family history of coronary arteriosclerosis Payers Payer name Insurance type Covered constitution party ID Idalmis daly(s) [facility] Advantage CI [id number] Social History Type Description Quantity Date Captured Comments Alcohol Use Details No Caffeine Use Details Unknown Tobacco Use Status No Information Smoking Status No Information Smoking Tobacco Use Details Cigarette: Years Used 20 Cigarette: 30 Packs per day, Pack Year: 600 Sex Female Vital Signs Date / Time: Height Weight BMI Pulse Rate Blood Pressure Temperature Respiratory Rate Body Surface Area Head Circumference Head Circ. Percentile Wt./Martell. Percentile BMI percentile Pulse Ox Inhaled Ox 9:55 AM 65.00 in 118.841 kg (262.00 lbs) 43.6 0 kg/m eter (2) 105 /min 156/88 mm[Hg] 97.20 F 20 /min 2.33 meter(2) 97 % Chief Complaint And Reason For Visit From encounter dated '10/21/2018 08:40'. cold symptoms (chief complaint) Reason For Referral Reason For Referral No Information History Of Present Illness Encounter Date Complaint History Of Prese nt Illness No Information Functional Status Date Functional Assessmen t No Information Instructions Date Instruction Additional Infor mation No Information Assessments Type Assessment Date No Information Mental Status Date Cognitive Assessment Orientation - Perry ed to time, place, person, situation. Patient Care Teams Name Effective Dates (start - stop) Status Members No Information
--- OUTSIDE RECORDS SUMMARY | 2019-04-04 08:54 | XMS_ITS | Continuity of Care Document ---
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 10 MG - Active lisinopril 10 mg tablet take 1 tablet by oral route every day 10 MG - Active hydrochlorothiazide 12.5 mg tablet take 1 tablet by oral route every day 12.5 MG - Active cyanocobalamin (vit B-12) 1,000 mcg/mL injection solution inject 1 milliliter by intramuscular route every month (maintenance dose) 1000 MCG - Active propranolol 10 mg tablet take 1 tablet by oral route 2 times every day 10 MG - Active Vitamin B-12 5,000 mcg sublingual tablet take 1 tablet by sublingual route every day 1 tablet - Active Please note this is in addition to SC/IM injections. May also substitute quantity due to costs. Thanks! cholecalciferol (vitamin D3) 10,000 unit tablet take 1 tablet by oral route every week with food for three months 1 tablet - Active May substitute quantity due to costs. Diflucan 150 mg tablet take 1 tablet by oral route once - Active cyclobenzaprine 5 mg tablet take 1 tablet by oral route 2 times every day as needed 5 MG - Active AeroEclipse II Nebulizer Use with albuterol every 4 hours as needed - Active Substitute equivalent device albuterol sulfate 2.5 mg/3 mL (0.083 %) solution for nebulization inhale 3 milliliter by nebulization route every 4 hours as needed for cough, shortness of breath and wheezing - Active BD Specialty Use [place] 25 gauge x 7/8 use as directed with cyanocobalamin injections. - Active may substitute OTC for most cost effective. ALEVE (unknown strength) as needed Not Available - Active CLARITIN (unknown strength) as needed Not Available - Active Procedures Procedure Date OFFICE/OUTPATIENT VISIT, EST Duoneb Inh Per Unit Decadron Dexamethasone sodium phos Per 1 Mg Inj OFFICE/OUTPATIENT VISIT, EST OFFICE/OUTPATIENT VISIT, EST OFFICE/OUTPATIENT VISIT, EST OFFICE/OUTPATIENT VISIT, EST AIRWAY INHALATION TREATMENT Albuterol unit dose OFFICE/OUTPATIENT VISIT, EST OFFICE/OUTPATIENT VISIT, EST Decadron Dexamethasone sodium phos Per 1 Mg Inj NOC Kenalog Triamcinolone acetonide Inj Per 10mg OFFICE/OUTPATIENT VISIT, NEW Advance Directives Directive Yes / No Effective Date File Name No Information Encounters Encounter Description Practice Location Reason(s) For Visit Diagnoses Date Provider Providers Copied on Encounter [facility], [address], [place], [id number], tel:[phone] [facility] [place] No Information 9 Melva Mala. [address] [place] [address], [id number], [place]. tel:[phone] [facility], [address], [place], [id number], tel:[phone] [facility] [place] No Information 9 Linss Mala. [address] [place] [address], [id number], [place]. tel:[phone] [facility], [address] [place] [address], [id number], tel:[phone] [facility] [place] No Information Jun- 8 Melva Medeiros. [address] [place] [address], [id number], [place]. tel:[phone] OFFICE/OUTPA TIENT VISIT, EST [facility], [address] [place] [address], [id number], [place] tel:[phone] [facility] [place] hypertension (chief complaint)Col d symptoms (chief complaint) HyperlipidemiaHy pertensionVitami n D deficiency, unspecifiedVitam in B12 deficiency anemia, unspecifiedCOPDG eneralized Anxiety DisorderAcute bronchitis, unspecifiedAcute sinusitis, unspecifiedSpasm VaginitisCough Sep-1 8 Melva Medeiros. [address] [place] [address], [id number], [place]. tel:[phone] Referring Provider: Mala Ashford, [address] [place] [address], [id number] . tel:[phone] OFFICE/OUTPA TIENT VISIT, EST [facility], [address] [place] [address], [id number], [place] tel:[phone] [facility] [place] cough (chief complaint) COPD w/ acute exacerbation Sep-0 8 Noman Badillo. [address] [place] [address], [id number], [place]. tel:[phone] Referring Provider: Justino Tineo, [address] [place] [address], [id number]. tel:[phone] OFFICE/OUTPA TIENT VISIT, EST [facility], [address] [place] [address], [id number], [place] tel:[phone] [facility] [place] URI (chief complaint) Acute bronchitis, unspecifiedAcute sinusitis, unspecifiedCough Sep-0 8 Long Sue. [address] [place] [address], [id number], [place]. tel:[phone] Referring Provider: Sue Jaffe, [address] [place] [address], [id number]. tel:[phone] OFFICE/OUTPA TIENT VISIT, EST [facility], [address] [place] [address], [id number], [place] tel:[phone] [facility] [place] hypertension (chief complaint)Anx iety (chief complaint) COPDGeneralized Anxiety DisorderHyperten sionVitamin B12 deficiency anemia, unspecified 0 8 Melva Medeiros. [address] [place] [address], [id number], [place]. tel:[phone] Referring Provider: Mala Ashford, [address] [place] [address], [id number] . tel:[phone] OFFICE/OUTPA TIENT VISIT, EST [facility], [address] [place] [address], [id number], [place] tel:[phone] [facility] [place] Hypertension (chief complaint) HypertensionGene ralized Anxiety DisorderHeadache 8 Melva Medeiros. [address] [place] [address], [id number], [place]. tel:[phone] Referring Provider: Mala Ashford, [address] [place] [address], [id number] . tel:[phone] OFFICE/OUTPA TIENT VISIT, EST [facility], [address] [place] [address], [id number], [place] tel:[phone] [facility] [place] cough (chief complaint) WheezingCOPD w/ acute exacerbationCoug h 0 7 Ld Rogers. [address] [place] [address], [id number], [place]. tel:[phone] Referring Provider: Sue Jaffe, [address] [place] [address], [id number]. tel:[phone] OFFICE/OUTPA TIENT VISIT, EST [facility], [address] [place] [address], [id number], tel:[phone] Replaced by [facility] care (chief complaint) Sciatica, right sideCOPDFatigueI nsomniaVitamin D deficiency, unspecifiedPsori asis, unspecifiedSmoke r's palateLow back painGeneralized Anxiety DisorderHyperten sionOther seasonal allergic rhinitisVitamin B12 deficiency anemia, unspecified 7 Melva Medeiros. [address] [place] [address], [id number], . tel:[phone] Referring Provider: Mala Ashford, [address] [place] [address], [id number] . tel:[phone] OFFICE/OUTPA TIENT VISIT, [facility], [address] [place] [address], [id number], tel:[phone] [facility] (chief complaint) Acute sinusitis, unspecifiedAcute bronchitis, unspecified Ld Rogers. [address] [place] [address], [id number], . tel:[phone] Referring Provider: Sue Jaffe, [address] [place] [address], [id number]. tel:[phone] Family History Family Member Type Diagnosis Age At Onset Father Problem (finding) Diabetes mellitus Son Problem (finding) Mental illness Daughter Problem (finding) asthma Mother Problem (finding) Diabetes mellitus Mother Problem (finding) Heart Issues Payers Payer name Insurance type Covered democrat ID Authoriza tion(s) No Information Social History Type Description Quantity Date Captured Comments Alcohol Use Details Unknown Caffeine Use Details Unknown Tobacco Use Status Smoking Status No Information Sex Female Chief Complaint And Reason For Visit No Information Reason For Referral Reason For Referral No Information Plan Of Treatment Date Type Action Status Future Order: Lab Order CBC With Differential/Platelet ([id number]), Ordered on: Ordered Future Order: Lab Order Comp. Me tabolic Panel (14) ([id number]), Ordered on: Ordered Future Order: Lab Order Lipid Pa jorge a ([id number]), Ordered on: Ordered Future Order: Lab Order TSH [id number] ([id number]), Ordered on: Ordered Future Order: Lab Order Vitamin B12 and Folate ([id number]), Ordered on: Ordered Future Order: Lab Order Vitamin D, 25-Hydroxy ([id number]), Ordered on: Ordered Future Order: Lab Order Hemoglob in A1c ([id number]), Ordered on: Ordered History Of Present Illness Encounter Date Complaint History Of Prese nt Illness Cold symptoms Onset: 2 Weeks. The severity of the problem is mild. The problem has worsened. The symptoms are persistent. Symptoms are associated with history of allergies, recent cold and smoker. Symptoms are not relieved by antihistamines, decongestants or OTC analgesics. Associated symptoms include cough, dyspnea, fatigue, headache, myalgia, nasal congestion, otalgia, rhinitis, sinus pressure and wheezing. Pertinent negatives include fever or pharyngitis. hypertension Risk factors inc lude depression, family history HTN, gout or CAD and smoking. The hypertension is exacerbated by stress. Associated symptoms include chest pain, dyspnea, fatigue, headache, nausea, tinnitus, transient weakness and visual disturbances. Pertinent negatives include irregular heartbeat/palpitations and vomiting. cough Onset: 4 Days. T he severity of the problem is moderate. The problem has worsened. The symptoms are persistent. Symptoms are associated with smoker. Symptoms are not associated with dental infection, exposure to strep, history of allergies, history of asthma, recent cold and sick family member. Aggravating factors include allergens, exertion and lying down. Symptoms are not aggravated by cold air, smoke or stress. Symptoms are relieved by decongestants. Relieved by additional comments: abt, steroids, mucinex, and inhalers. Associated symptoms include chills/rigors, cough (moist), dyspnea, fatigue, fever, postnasal drainage and wheezing. Pertinent negatives include facial pain, headache, hemoptysis, myalgia, nasal congestion, otalgia, pharyngitis, rash, rhinitis, sinus pressure, sputum or tooth pain. URI The symptoms beg an 4 days ago. The symptoms have worsened. The symptoms occur constantly. The patient presents with cough, earache, fatigue, fever, generalized weakness and pharyngitis. The symptoms are aggravated by exertion. Interventions that have been tried have not provided any relief. The illness is associated with change in sleep cycle, dizziness, dyspnea, hoarseness and lightheadedness. Additional information: Pt presents with URI symptoms that began 4 days ago. hypertension The symptoms beg an 8 months ago. It is currently improving. Risk factors include depression, family history HTN, gout or CAD and smoking. The hypertension is exacerbated by anxiety and stress. Associated symptoms include dyspnea, fatigue and headache. Pertinent negatives include chest pain, confusion, irregular heartbeat/palpitations, nausea, tinnitus, tremor and vomiting. Anxiety This is an initi al visit. There is worsening of previously reported symptoms. The patient presents with anxious/fearful thoughts, compulsive thoughts, difficulty concentrating, difficulty falling asleep, difficulty staying asleep, diminished interest or pleasure, easily startled, fatigue, decreased libido, poor judgment, racing thoughts and restlessness but denies decreased need for sleep, depressed mood, excessive worry, feelings of guilt, increased energy, hallucinations, increased libido, loss of appetite, paranoia or thoughts of or suicide. The patient's risk factors include chronic illness, drug abuse, family history of depression, family history of anxiety, family history of bipolar disorder, history of depression, history of suicidal attempts and victim of abuse or violence. The patient's risk factors exclude alcoholism, of a friend or loved one, financial worries, recent childbirth and relationship problems. The Anxiety is aggravated by lack of sleep, menstruation and locations of hx of drug addiction but not with alcohol use or drug use. The patient's relieving factors are breathing exercises/praying.The patient's symptoms are not relieved by alcohol. The Anxiety is associated with headache. The patient denies any nausea and vomiting. Hypertension The hypertension is exacerbated by anxiety and stress. Associated symptoms include headache. Pertinent negatives include nausea and vomiting. 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 cough Onset: 1 Week. T he problem is severe. Pain scale: 8/10. The problem has worsened. The symptoms are persistent. Symptoms are associated with history of allergies, history of asthma and smoker. Aggravating factors include allergens, cold air, lying down and smoke. Symptoms are relieved by antihistamines. Associated symptoms include cough (persistent), dyspnea and wheezing. Pertinent negatives include fever, headache, myalgia, nasal congestion, otalgia, pharyngitis, postnasal drainage or sinus pressure. establish care The symptoms beg an on 07/20/2017 and generally lasts varies. The symptoms are reported as being mild. The symptoms occur constantly. The context of the symptoms include na. The symptoms are described as na. Aggravating factors include client to customize. Relieving factors include client to customize. She states the symptoms are chronic and are stable. Pt. presents to establish care with ANICETO Roman. She is new to the area. She was seen in Urgent Care and did not have a primary care provider. She has a history of COPD, low back pain, and CHASITY. cough Onset: 2 Weeks. The severity of the problem is moderate. The problem has not changed. The symptoms are persistent. Symptoms are associated with history of asthma, recent travel and smoker. Symptoms are not associated with dental infection, exposure to strep, history of allergies, recent cold and sick family member. Aggravating factors include allergens, cold air, exertion, lying down and smoke. Symptoms are not aggravated by stress. Symptoms are relieved by antihistamines. Symptoms are not relieved by decongestants, OTC cough syrup, OTC analgesics, humidifier or throat lozenges. Associated symptoms include chills/rigors, cough (moist), dyspnea, fatigue, fever, headache, myalgia, nasal congestion, sinus pressure and wheezing. Pertinent negatives include facial pain, hemoptysis, otalgia, pharyngitis, postnasal drainage, rash, rhinitis, sputum or tooth pain. Functional Status Date Functional Assessmen t No Information Instructions Date Instruction Additional Infor red Reviewed lab results with collection date of 05/10/18.1. CBC: WBC and Neutrophils elevated. Likely indicates current infection. Pt. has been seen in UC and treated with Cefdinir and Doxycycline.2. CMP: Glucose is elevated; all other values within reference ranges. Pt. had been given IM steroid day previous to blood draw in UC. She also had oral steroids. This is likely the result of these steroids. Will continue to monitor at next lab monitoring. Kidney function good with concurrent use of Lisinopril/HCTZ and propranolol. 3. Lipid panel: Total cholesterol, LDL, and LDL/HDL ratio are all elevated. This is an increase since last lab monitoring. 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 Due to cardiac risks will initiate treatment with Atorvastatin 10mg daily. Will recheck Lipids in 3 months. 4. Vitamin B12: 550, goal 700+. Pt. doing monthly injections. Will supplement with sublingual Vitamin B12 5000mcg daily. Pt. to obtain from pharmacy. Will recheck in 3 months. 5. Hemoglobin A1c: elevated at 5.7. Not likely from steroids but could be due to illness/stress. Will continue to monitor. Pt. will also be cognizant of diet. Will recheck in 3 months. 6. TSH: Within reference ranges.7. Vitamin D: 30.5. Goal 70+. Will add weekly supplementation of Vitamin D3 10,000 weekly with daily OTC Vitamin D3 2000IU daily. Will recheck in 3 months. Blood pressure elevated today. Goal is less than 120/80. Elevation could be contributed to steroids, stress, and illness. Will have the pt. increase home monitoring and for one week double medication (lisinopril and hctz) as the prednisone gets out of her system and she begins to feel better. If not improving after one week and as she decreases the BP medicine in one week she will contact the clinic for further instructions. If in one week the BP is still not at goal will have her continue with increased lisinopril (20mg) and HCTZ (25mg) and recheck at next visit. She will watch for s/s of hypo/hypertension and report to clinic and/or seek emergency medical attention as appropriate. The pt. states she has great fear about her cardiac presentation/symptoms as she has a strong family history of cardiovascular disease and diabetes. Discussed additional testing of Echo and EKG. However, pt. elects to defer at this time due to associated costs and no insurance coverage currently. Some of the pt.'s presentation today could be related to COPD exacerbation. She has tried both cefdinir and doxycycline. Discussed and provided education on both viral and bacterial infections. Pt. states, cinthia núñez always works for me and I wish I could just have that. Provided education on coverage and that this is not the recommended antibiotic treatment. However, agreed to send at pt.'s request as she was persistent this always works. Discussed if this does not improve symptoms differentials include influenza. However, the pt. is unable to afford influenza testing. Pt. notes anxiety has been heightened with the steroid treatment, however, she has noticed the propranolol helps control this. She will continue this medication as prescribed. Pt. reports muscle spasm in between her shoulder blades she has noticed since having all the coughing. She reports some numbness and tingling down both arms when I really get to coughing. Will treat with Flexeril 5mg BID PRN.Due to increased antibiotics suspect yeast infection. Will send Diflucan 150mg x1 for pt. should she notice increased symptoms. With the pt.'s presentation/ exacerbation would not recommend return to work at this time due to the nature of her position. 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 She should readdress symptoms in 1-2 weeks and return at that time as appropriate. The pt. as educated on diagnoses, procedures/labs, differentials, monitoring intervals, symptomology, medications, dosing instructions, side/adverse effects, intended benefits, potential risks, and overall treatment plan. She was given the opportunity to ask questions and have them answered. She acknowledged understanding for guidelines to contact the clinic or seek other medical attention. She agrees to this treatment plan. All medications as listed above were ERx'd to [facility] pharmacy in [place] per pt. request. Related to Hyperlipidemia REFERENCE ABOVE Related to Vitam in B12 deficiency anemia, unspecified REFERENCE ABOVE Related to COPD REFERENCE ABOVE Related to Gener alized Anxiety Disorder REFERENCE ABOVE Related to Acute bronchitis, unspecified REFERENCE ABOVE Related to Acute sinusitis, unspecified REFERENCE ABOVE Related to Spasm REFERENCE ABOVE Related to Vagin itis REFERENCE ABOVE Related to Cough REFERENCE ABOVE Related to Vitam in D deficiency, unspecified REFERENCE ABOVE Related to Hyper tension Pt will purchase neb ulizer and sent albuterol to pharmacyAdministered 10mg IM decadron, will start prednisone 40mg tomorrowCefdinir x 10 daysDispensed Symbicort inhalerRTC if symptoms worsen Related to COPD w/ acute exacerbation Patient was prescrib ed doxycycline 100mg po q 12 hours x 10 days. Patient was given the following special instructions: Patient is to maintain adequate clear fluid intake, continue non-sedating antihistamine, suggested mucinex DM. Patient may use moist heat over the affected sinuses for relief of pain. Patient may use nasal saline to keep nasal passages patent. Patient is to return to clinic if no improvement in 48-72 hours after initiation of medication, or if symptoms worsen. Patient agrees to plan and has no further questions at this time. Related to Acute sinusitis, unspecified Patient prescribed d oxycyline 100mg po q 12 hours x 10 days and tessalon perles 100mg po TID prn cough. Refill for pro-air albuterol inhaler sent. Patient advised to drink plenty of clear fluids and to use tylenol or ibuprofen PRN pain/fever. Patient has a f/u later this month with MAHENDRA Leung. If symptoms are not improving may consider CXR at that time. Patient is to RTC sooner if worsening facial pain, copious amounts of thick, colored drainage, cough that causes SOB or wheezing, or symptoms persist. Patient had no further questions at this time. Related to Acute bronchitis, unspecified Patient prescribed d oxycyline 100mg po q 12 hours x 10 days and tessalon perles 100mg po TID prn cough. Refill for pro-air albuterol inhaler sent. Patient advised to drink plenty of clear fluids and to use tylenol or ibuprofen PRN pain/fever. Patient has a f/u later this month with MAHENDRA Leung. If symptoms are not improving may consider CXR at that time. Patient is to RTC sooner if worsening facial pain, copious amounts of thick, colored drainage, cough that causes SOB or wheezing, or symptoms persist. Patient had no further questions at this time. Related to Cough Patient voices impro vement with fatigue since the initiation of vitamin B12 injections. She is due for refills of vitamin B12. She is on monthly injections. Vitamin B12 and administration needles were E/scribe to [facility] per patient request. She reports adherence and agrees to treatment plan. We will plan for follow-up in 2-3 months and this was scheduled with an appointment card provided to the patient. She will contact the clinic in the interim with any questions or concerns.The patient was educated on diagnoses, differentials, monitoring intervals, symptomology, medications, dosing instructions, side/adverse effects, intended benefits, potential risks, and overall treatment plan. She was given the opportunity to ask questions and have them answered. She acknowledges understanding for guidelines to contact the clinic or to seek other additional medical attention's. She agrees to this treatment plan. Related to Vitamin B12 deficiency anemia, unspecified Pt. reports increase d anxiety. Completed PHQ-9 and CHASITY-7. These can be seen in the EHR. Discussed treatment options. She states the symptoms come on quickly and randomly of panic. Offered SSRI vs. Buspar vs Hydroxyzine vs. Propranolol. Pt. chooses treatment with propranolol. Propranolol was E p rescribed to [facility] per patient request. Patient was educated on diagnoses, differentials, monitoring intervals, symptomology, medications, dosing instructions, side/adverse effects, intended benefits, potential risks, and overall treatment plan. She was given the opportunity to ask questions and have them answered. She acknowledges understanding of guidelines to contact the clinic or to seek other medical attention. She agrees to this treatment plan. We will plan for follow-up in 2-3 months. Appointment scheduled an appointment card provided to patient. She is to contact the clinic with any worsening of symptoms. Related to Generalized Anxiety Disorder Pt. is out of Pro- r inhaler. Refill sent to [facility] pharmacy per pt. request. She believes the increased wheezing is due to being out of the inhaler. PE does not appreciate wheezing. She will contact the clinic if symptoms persist worsen. The patient was educated on diagnoses, differentials, monitoring intervals, symptomology, medications, dosing instructions, side/adverse effects, intended benefits, potential risks, and overall treatment plan. She was given the opportunity to ask questions and have them answered. He acknowledges understanding for guidelines to contact the clinic or seek other additional medical attention. She agrees to this treatment plan. Related to COPD REFERENCE ABOVE Related to Heada jose m REFERENCE ABOVE Related to Gener alized Anxiety Disorder PE completed as tyleru mented. Pt. presents with stage II hypertension. Pt. recently had a DOT physical and just barely passed it with my blood pressure. Goal for BP is < 130/80. We are not at goal today. Educated the pt. on hypertension and treatment options. Educated pt. on lifestyle modifications. 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 She could improve diet and physical activity. She states she will make an honest effort to improve. Discussed also cutting down on smoking. Pt. is not ready to quit but I will think about it. Pt. has repeat testing on Sunday (in two days) for her new job. She has great anxiety that she will not pass. She also reports headaches that are likely from this increase in BP. Discussed s/s of hyper and hypo tensive emergency. The pt. verbalized understanding and when it is appropriate to seek immediate medical care and/or proceed to the ER. Offered lisinopril 10mg daily and hydrochlorothiazide 12.5mg daily. Educated the pt. on the diagnoses, differentials, medications, side/adverse effects, dosing, intended benefits, potential risks, and overall treatment plan. She was given the opportunity to ask questions and have them answered. She agrees to the treatment plan. The medications were ERx'd to [facility] pharmacy per pt. request. The pt. will follow up in clinic in 1 month to review medication efficacy and blood pressure. She will also bring a blood pressure log to this appointment. She will follow up sooner as needed. Related to Hypertension Patient given duoneb tx in clinic. Patient has move air movement after tx. Patient states she has been able to use inhaler becuase it is a respiclick and she is having difficulties with it so will change to Pro-air HFA. Also sending tessalon perles TID prn cough. Patient encouraged to use humidifier. Patient is adamant about not wanting to stop smoking but did explains symptoms that she is having can be exacerbated by cigarette smoke. Patient is going to have her labs drawn today, if there is an indication of infection we will start her on an antibiotic but do not believe she needs on at this time. Patient agrees with plan and has no other questions at this time. Related to Cough Patient given duoneb tx in clinic. Patient has move air movement after tx. Patient states she has been able to use inhaler becuase it is a respiclick and she is having difficulties with it so will change to Pro-air HFA. Also sending tessalon perles TID prn cough. Patient encouraged to use humidifier. Patient is adamant about not wanting to stop smoking but did explains symptoms that she is having can be exacerbated by cigarette smoke. Patient is going to have her labs drawn today, if there is an indication of infection we will start her on an antibiotic but do not believe she needs on at this time. Patient agrees with plan and has no other questions at this time. Related to Wheezing Patient given duoneb tx in clinic. Patient has move air movement after tx. Patient states she has been able to use inhaler becuase it is a respiclick and she is having difficulties with it so will change to Pro-air HFA. Also sending tessalon perles TID prn cough. Patient encouraged to use humidifier. Patient is adamant about not wanting to stop smoking but did explains symptoms that she is having can be exacerbated by cigarette smoke. Patient is going to have her labs drawn today, if there is an indication of infection we will start her on an antibiotic but do not believe she needs on at this time. Patient agrees with plan and has no other questions at this time. Related to COPD w/ acute exacerbation REFERENCE ABOVE Related to COPD REFERENCE ABOVE Related to Fatig ue REFERENCE ABOVE Related to Insom syd REFERENCE ABOVE Related to Psori asis, unspecified REFERENCE ABOVE Related to Vitam in D deficiency, unspecified REFERENCE ABOVE Related to Smoke r's palate REFERENCE ABOVE Related to Low b ack pain REFERENCE ABOVE Related to Sciat ica, right side REFERENCE ABOVE Related to Gener alized Anxiety Disorder REFERENCE ABOVE Related to Other seasonal allergic rhinitis Patient was prescrib ed doxycycline 100mg po q 12 hours x 10 days. Patient was given the following special instructions: Patient is to maintain adequate clear fluid intake, continue taking non-sedating antihistamine suggested zyrtec since she doesn't feel claritin is helping anymore. Also discussed with patient setting up allergy testing in the future to help with chronic allergies. Patient may use moist heat over the affected sinuses for relief of pain. Patient may use nasal saline to keep nasal passages patent. Patient is to return to clinic if no improvement in 48-72 hours after initiation of medication, or if symptoms worsen. Patient agrees to plan and has no further questions at this time. Related to Acute sinusitis, unspecified Patient [facility] after area was cleansed with alcohol. Patient was prescribed doxycycline 100mg and an albuterol inhaler. Patient was given the following special instructions: maintain adequate clear fluid intake,use tylenol or ibuprofen as needed for pain/fever, and rest. Patient is to RTC if symptoms persist or worsen. Patient is also concerned with blood pressure and is going to set up appt. with [facility] [employer] [employer] to establish primary care. Patient had no further questions at this time. Related to Acute bronchitis, unspecified Assessments Type Assessment Date No Information Patient Care Teams Name Effective Dates (start - stop) Status Members No Information
--- OUTSIDE RECORDS SUMMARY | 2023-06-13 08:00 | XMS_ITS | Continuity of Care Document ---
Author Organization [facility] Address [address] [id number] [address] Phone Care Team Providers Care Circulation Supervisor Name Role Phone Golden Tapia DDS Unavailable Unavailable Allergies, Adverse Reactions, Alerts Substance Reaction Status Criticality codeine Active No Information Medications Medication Instructions Dosage Effective Dates (start - stop) Status Comments gabapentin 600 mg tablet take 1 tablet by oral route 3 times every day 600 MG - Active isosorbide mononitrate ER 60 mg tablet,extended release 24 hr take 1 tablet by oral route every day in the morning 60 MG - Active propafenone ER 225 mg capsule,extended release 12 hr take 1 capsule by oral route every 12 hours 225 MG - Active Wellbutrin XL 150 mg 24 hr tablet, extended release take 1 tablet by oral route every day 150 MG - Active Lexapro 20 mg tablet take 1 tablet by or al route every day 20 MG - Active B-12 Plus 5,000 mcg-100 mcg sublingual tablet - Active Symbicort 80 mcg-4.5 mcg/actuation HFA aerosol inhaler inhale 2 puff by inhalation route 2 times every day in the morning and evening 2.00 puff - Active Procedures Procedure Date Limited Oral Evaluation Problem Focused Intraoral Periapical First Film Extraction, Erupted Tooth Or Exposed Nhi t (Elevati Advance Directives Directive Yes / No Effective Date File Name No Information Encounters Encounter Description Practice Location Reason(s) For Visit Diagnoses Date Provider Providers Copied on Encounter [facility], [id number], [id number], [place] tel:[phone] [facility] Encounter for dental exam and cleaning w/o abnormal findings Regina Franks. [address], [place], [id number], [place]. tel:[phone] Referring Provider: Golden Barreto, [address] [place], [address]. tel:[phone] Family History Family Member Type Diagnosis Age At Onset No Information Payers Payer name Insurance type Covered republican ID Idalmis daly(s) D Medicaid [id number] Social History Type Description Quantity Date Captured Comments Alcohol Use Details No Caffeine Use Details Unknown Tobacco Use Status Occasional cigarette smoker Smoking Status Heavy tobacco smoker Smoking Tobacco Use Details Cigarette: No Details Available Cigarette: 0.5 Packs per day Sex Female Gender Identity Female Chief Complaint And Reason For Visit No Information Reason For Referral Reason For Referral No Information History Of Present Illness Encounter Date Complaint History Of Prese nt Illness No Information Functional Status Date Functional Assessmen t No Information Instructions Date Instruction Additional Infor mation No Information Assessments Type Assessment Date No Information Patient Care Teams Name Effective Dates (start - stop) Status Members No Information
[2025-05-26] VITALS (10 sets, daily range): BP systolic 126–203; BP diastolic 75–120; PULSE 88–128; RESP 18–28; TEMP 36.7; O2SAT 93–96; BMI 43.2
--- NOTE | 2025-05-26 20:45 | XRR_ITS ---
PROCEDURE INFORMATION: Exam: XR Chest Exam date and time: 05/26/2025 9:22 PM Age: 54 years old Clinical indication: Other: Overdose; Additional info: Od TECHNIQUE: Imaging protocol: Radiologic exam of the chest. Views: 1 view. COMPARISON: CR XR chest 1V portable [id number] 07/06/2023 6:32 AM FINDINGS: Tubes, catheters and devices: Partially imaged spinal cord stimulator and leads terminating in the midthoracic spine. Lungs: Unremarkable. No consolidation. Pleural spaces: Unremarkable. No pleural effusion. No pneumothorax. Heart/Mediastinum: Unremarkable. No cardiomegaly. Bones/joints: Partially imaged cervical fusion hardware is noted. XR/XR chest 1V portable [id number] IMPRESSION: No acute findings.
--- NOTE | 2025-05-26 20:52 | W.ED.OVERDOS ---
HPI - Overdose General: Chief Complaint: Overdose Stated Complaint: overdose Time Seen by Provider: 05/26/25 20:44 Source: patient and EMS Mode of arrival: EMS Limitations: no limitations History of Present Illness: 54-year-old female who states that she has been under a lot of stress with her daughter she has been having chronic pain as well. She states that roughly at 7:20 PM she took 1000 mg lisinopril and attempt to harm herself. States she was suicidal at the time but is now regretful. Patient is not hypotensive here denies any vomiting has no other complaints Related Data Home Medications ?Medication ?Instructions ?Recorded ?Confirmed amlodipine 5 mg tablet 5 mg PO DAILY 08/02/21 02/20/24 nitroglycerin 0.4 mg sublingual 0.4 mg sublingual PRN PRN chest 08/05/21 02/20/24 tablet pain ropinirole 2 mg tablet 2 mg PO BEDTIME 03/01/22 02/20/24 budesonide-formoterol HFA 160 2 inh inhalation BID 07/06/23 02/20/24 mcg-4.5 mcg/actuation aerosol inhaler (Symbicort) cetirizine 10 mg tablet 10 mg PO BID PRN Allergic Symptoms 07/06/23 02/20/24 escitalopram oxalate 10 mg tablet 10 mg PO QAM 07/06/23 02/20/24 gabapentin 600 mg tablet 600 mg PO TID 07/06/23 02/20/24 propranolol 10 mg tablet 10 mg PO BID 07/06/23 02/20/24 Previous Rx's ?Medication ?Instructions ?Recorded albuterol sulfate 90 mcg/actuation 2 puff inhalation Q4H PRN 09/10/20 aerosol inhaler (ProAir HFA) Shortness Of Breath 30 days #1 unit aspirin 81 mg tablet,delayed 81 mg PO DAILY 30 days #30 tabs 09/10/20 release cyanocobalamin (vitamin B-12) 1,000 mcg IM Q30D 30 days #1 mL 09/10/20 1,000 mcg/mL injection solution isosorbide mononitrate 60 mg 60 mg PO DAILY 30 days #30 tabs 09/10/20 tablet,extended release 24 hr lisinopril 20 1 tab PO DAILY 30 days #30 tabs 09/10/20 mg-hydrochlorothiazide 25 mg tablet bupropion HCl 150 mg 24 hr tablet, 150 mg PO QAM #90 tabs 02/23/22 extended release (Wellbutrin XL) pantoprazole 40 mg tablet,delayed 40 mg PO DAILY #30 tabs 07/06/23 release topiramate 50 mg tablet 50 mg PO BID pain 30 days #60 tabs 08/23/23 hydrocodone 5 mg-acetaminophen 325 1 tab PO BID PRN pain 30 days #45 12/18/23 mg tablet tabs Allergies Allergy/AdvReac Type Severity Reaction Status Date / Time codeine Allergy Severe ALGY-Anaphy Verified 02/20/24 10:33 laxis pseudoephedrine (From Allergy Intermediate ALGY-Hives Verified 02/20/24 10:33 Sudafed) pravastatin Allergy Unknown Verified 02/20/24 10:33 Fzvmzui-WLA-QfX Reductase Allergy Unknown Verified 02/20/24 10:33 Inhibitor (Szqqacq-Gbn-Qce Reductase Inhibitor) Opioids - Morphine Analogues AdvReac Intermediate ADR-Vomitin Verified 02/20/24 10:33 g Review of Systems Psych: Reports: depression PFSH ED PFSH: Medical History Bipolar 1 disorder Asthma PTSD (post-traumatic stress disorder) Hypercholesterolemia COPD (chronic obstructive pulmonary disease) Benign essential hypertension Adjustment disorder with depressed mood Spinal stenosis of lumbar region with radiculopathy Spondylolisthesis, lumbar region Morbid obesity with BMI of 45.0-49.9, adult Lumbar stenosis with neurogenic claudication Synovial cyst of lumbar spine Surgical History Status post colonoscopy (08/08/21) H/O local excision of skin lesion (08/08/21) History of lumbar laminectomy for spinal cord decompression Hx of spinal fusion History of cholecystectomy History of tubal ligation Family History Mother Diabetes Father Diabetes Denies family history of Dementia Cancer Social History Smoking and tobacco/nicotine status: former use of tobacco/nicotine Quit status (tobacco/nicotine): has tried quititng Number of times tried to quit tobacco: 11 Second hand smoke exposure: Yes Alcohol intake: never Substance/Drug Use: current Substance/Drug use frequency: daily Housing: House service: No Current occupational status: employed 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 Physical Exam Const: COMMON NORMALS: patient oriented x3 HENMT: COMMON NORMALS: normocephalic and atraumatic HEAD & SCALP: normocephalic and atraumatic Eye: COMMON NORMALS: Equal, round and reactive pupils present and EOMs intact bilaterally PUPIL: Yes Equal, round and reactive pupils present Neck/C-Spine: COMMON NORMALS: full ROM and supple Chest: COMMONS NORMALS: normal inspection of the chest and normal palpation of entire chest wall Resp: COMMON NORMALS: normal respiratory effort, No retractions, No use of accessory muscles and clear to auscultation bilaterally AUSCULTATION: clear to auscultation bilaterally Cardio: COMMON NORMALS: regular rate, regular rhythm and No murmurs present (Cardio) RATE: regular rate RHYTHM: regular rhythm Extremity: COMMON NORMALS: normal to inspection and full ROM Neuro: COMMON NORMALS: patient oriented x3, moves all extremities and no focal motor deficits Psych: COMMON NORMALS: mental status grossly normal, Normal thought process present and cooperative MOOD & AFFECT: Yes depressed mood THOUGHT PROCESS: Normal thought process present THOUGHT CONTENT: Yes Suicidality present Skin: COMMON NORMALS: no rashes or lesions noted and no wounds GENERAL SKIN EXAM: no rashes or lesions noted Course Vital Signs: Vital signs: Vital Signs Pulse Rate 128 H 05/26/25 20:44 Respiratory Rate 19 H 05/26/25 20:44 Blood Pressure 203/120 05/26/25 20:44 Pulse Oximetry 95 05/26/25 20:44 Oxygen Delivery Me thod Room Air 05/26/25 20:44 MDM - Overdose Medical Decision Making Patient presents here with suicide attempt by overdose. She did take 1 g of lisinopril her blood pressure here has been stable no hypotension here. I did speak to psychiatrist and will admit. Her acetaminophen at aspirin levels are normal no signs of any other ingestions. I spoke to hospitalist Dr. Lang and will admit to the ICU for further observation for any ill effects of the overdose. Medical Records I reviewed the patient's medical records. Lab Data I reviewed the patient's lab results. 05/26/25 20:53 05/26/25 20:53 Laboratory Results WBC 16.62 10^3/uL (3.29-11.43) H 05/26/25 20:53 RBC 5.22 10^6/uL (3.85-5.65) 05/26/25 20:53 Hgb 15.80 g/dL (11.27-16.99) 05/26/25 20:53 Hct 46.1 % (36-47) 05/26/25 20:53 MCV 88.3 fl (85-98) 05/26/25 20:53 MCH 30.3 pg (27-33) 05/26/25 20:53 MCHC 34.3 g/dL (30-55) 05/26/25 20:53 RDW 13.2 % (12.1-15.1) 05/26/25 20:53 Plt Count 333 10^3/cmm (157-399) 05/26/25 20:53 MPV 9.3 fL (7.4-10.4) 05/26/25 20:53 Neut % (Auto) 76.8 % 05/26/25 20:53 Lymph % (Auto) 17.4 % 05/26/25 20:53 [place] % (Auto) 5.2 % 05/26/25 20:53 Eos % (Auto) 0.1 % 05/26/25 20:53 Baso % (Auto) 0.1 % 05/26/25 20:53 Neut # (Auto) 12.76 10^3/uL (1.8-7.7) H 05/26/25 20:53 Lymph # (Auto) 2.9 10^3/uL (0.8-4.8) 05/26/25 20:53 [place] # (Auto) 0.9 10^3/uL (0.2-0.9) 05/26/25 20:53 Eos # (Auto) 0.0 10^3/uL (0.0-0.8) 05/26/25 20:53 Baso # (Auto) 0.0 10^3/uL (0.0-0.1) 05/26/25 20:53 Nucleated RBC % (auto) 0 % 05/26/25 20:53 Nucleated RBCs # 0.0 /100WBC 05/26/25 20:53 Sodium 139 mmol/L (136-145) 05/26/25 20:53 Potassium 3.1 mmol/L (3.5-5.1) L 05/26/25 20:53 Chloride 96 mmol/L (98-107) L 05/26/25 20:53 Carbon Dioxide 24 mmol/L (22-29) 05/26/25 20:53 Anion Gap 22.1 (5-19) H 05/26/25 20:53 BUN 26 mg/dL (6-20) H 05/26/25 20:53 Creatinine 1.2 mg/dL (0.5-0.9) H 05/26/25 20:53 GFR Calculation 46.5 mL/min (90-130) L 05/26/25 20:53 Glucose 146 mg/dL (65-115) H 05/26/25 20:53 Calculated Osmolality 295 mOsm/kg (285-295) 05/26/25 20:53 Calcium 9.6 mg/dL (8.5-10.5) 05/26/25 20:53 Total Bilirubin 0.4 mg/dL (0.15-1.2) 05/26/25 20:53 AST 21 U/L (0-32) 05/26/25 20:53 ALT 29 U/L (0-33) 05/26/25 20:53 Alkaline Phosphatase 104 U/L (35-105) 05/26/25 20:53 Total Protein 8.0 g/dL (6.6-8.7) 05/26/25 20:53 Albumin 4.4 g/dL (3.5-5.2) 05/26/25 20:53 Globulin 3.6 g/dL (1.3-4.6) 05/26/25 20:53 TSH 1.23 uIU/mL (0.27-4.20) 05/26/25 20:53 Urine Color Yellow (Yellow) 05/26/25 21:10 Urine Appearance Clear (CLEAR) 05/26/25 21:10 Urine pH 7.5 (5-7) 05/26/25 21:10 Ur Specific [place] 1.005 (1.005-1.030) 05/26/25 21:10 Urine Protein Negative (Negative) 05/26/25 21:10 Urine Glucose (UA) Negative (Normal) 05/26/25 21:10 Urine Ketones Negative (Negative) 05/26/25 21:10 Urine Blood Negative (Negative) 05/26/25 21:10 Urine Nitrate Negative (Negative) 05/26/25 21:10 Urine Bilirubin Negative (Negative) 05/26/25 21:10 Urine Urobilinogen 0.2 mg/dL (Negative) 05/26/25 21:10 Ur Leukocyte Esterase Negative (Negative) 05/26/25 21:10 Urine RBC 0-2 /hpf (0-2) 05/26/25 21:10 Urine WBC 0-5 /hpf (0-5) 05/26/25 21:10 Ur Squamous Epith Cells 0-5 /hpf (0-5) 05/26/25 21:10 Amorphous Sediment Not Reportable 05/26/25 21:10 Urine Bacteria None seen /hpf (NONE) 05/26/25 21:10 Hyaline Casts 0-4 /lpf H 05/26/25 21:10 Salicylates < 0.3 mg/dL (3-10) L 05/26/25 20:53 Urine Opiates Screen Positive ng/mL (Negative) H 05/26/25 21:10 Acetaminophen < 5.0 ug/mL (10-30) L 05/26/25 20:53 Ur Barbiturates Screen Negative ng/mL (Negative) 05/26/25 21:10 Ur Phencyclidine Scrn Negative ng/mL (Negative) 05/26/25 21:10 Ur Amphetamines Screen Negative ng/mL (Negative) 05/26/25 21:10 U Benzodiazepines Scrn Negative ng/mL (Negative) 05/26/25 21:10 Urine Cocaine Screen Negative ng/mL (Negative) 05/26/25 21:10 U Marijuana (THC) Screen Positive ng/mL (Negative) H 05/26/25 21:10 Ethyl Alcohol < 10 mg/dL (0-10) 05/26/25 20:53 All radiology interpretation(s) finalized by discharge EKG Data EKG 1: I personally reviewed and interpreted this EKG as follows: EKG interpretation date: 05/26/25 EKG interpretation time: 20:54 Interpretation: nsr hr [address] elevation qrs 87 qtc 424 Critical Care Time Critical Care Time: Critical Care Time: Yes Total Critical Care Time: 35 Attestation: The high probability of a clinically significant, sudden or life threatening deterioration of the patient's psych system(s) required my full and direct attention, intervention and personal management. The critical care time is as shown. This time is in addition to time spent performing any reported procedures but includes the following: [x] Data and vital sign review and interpretation [x] Patient assessment, examination and intervention [x] Documentation [x] Medication orders and management Discharge Plan Discharge Patient Disposition: Admitted As Inpatient Clinical Impression: Drug overdose, Suicidal ideation Condition: Stable Coding Level of Care Code ED Door Frame Builder for Alfredo Al
--- NOTE | 2025-05-26 20:54 | ECG_ITS ---
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 Measurements Intervals [place] Rate: 96 P: 209 AR: 121 QRS: 59 QRSD: 87 T: 63 QT: 370 QTc: 469 Interpretive Statements SINUS RHYTHM Compared to ECG 07/06/2023 07:58:03 No significant changes Electronically Signed On 05-27-2025 20:50:01 CDT by Manny Goldberg M.D. [email or web address] [id number]
--- NOTE | 2025-05-26 20:55 | PC.NURSE ---
Spoke with Vee a pharmacist with [facility] about pt taking 40-50 25mg tabs. She stated 1/2 life is 12hrs and peak is 6-7hrs. Pt may become mildly hypotensive and supportive care for it is IV fluids and Vasopressors. Observer for 4-8hrs.
[2025-05-26 20:58] LABS: Hematocrit 46.1 % (36-47); Hemoglobin 15.80 g/dL (11.27-16.99); Mean Corpuscular HGB Conc 34.3 g/dL (30-55); Mean Corpuscular Hemoglobin 30.3 pg (27-33); Mean Corpuscular Volume 88.3 fl (85-98); Nucleated Red Blood Cells % 0 %; Platelet Count 333 10^3/cmm (157-399); Red Blood Count 5.22 10^6/uL (3.85-5.65); White Blood Count 16.62 10^3/uL (3.29-11.43)
--- OUTSIDE RECORDS SUMMARY | 2025-05-26 21:01 | XMS_ITS | Clinical Summary ---
Author Organization [facility] Address [address] [address] Phone Care Team Providers Care Marriage Counselor Minister Name Role Phone Unavailable Primary Care Provider Unavailabl e Allergies Active Allergy Reactions Criticality Noted Date Comments Codeine Anaphylaxis High 08/16/2023 Codeine Sulfate Anaphylaxis High 02/19/2024 Niacin Muscle Pain Medium 02/19/2024 Pseudoephedrine Hallucination Low 08/16/2023 Feels like bugs crawling under skin Pseudoephedrine Hcl Other (See Comments) 2023 Jmkxabm-Xye-Vnf Reductase Inhibitors Muscle Pain Medium 11/10/2020 Medications [...] Tablet 03/12/20 Active naloxone (NARCAN) 4 mg/spray [place], Non-Aerosol EMERGENCY USE ONLY: Administer 1 spray [...] Tdap) 02/27/2029 Medical Devices Implanted Type Area Machine Burrer Device Identifier Shelf Expiration Date Model / Serial / Lot Aldrich Lead Swiftloc [id number] - Sn/A Implanted:Qty: 2 on 03/12/2024 by Alida Ochoa DO at [facility] Aldrich N/A: Back [facility] 10/23/2024 [id number] / N/A / [id number] Lead Octrode Kit 3186 - [id number] Implanted:Qty: 1 on 03/12/2024 by Alida Ochoa DO at [facility] Lead N/A: Back [facility] 02/11/2026 [id number] / [id number] / N/A Lead Octrode Kit 3186 - [id number] Implanted:Qty: 1 on 03/12/2024 by Alida Ochoa DO at [facility] Lead N/A: Back [facility] 02/18/2026 [id number] / [id number] / Johns Eterna Implantable Pulse Generator Ref # [id number] Implanted:Qty: 1 on 03/12/2024 by Alida Ochoa DO at [facility] N/A: Back 02/14/2026 / [id number] / NA Insurance MEDICAID [place] Advance Directives For more information, please contact: [phone] * Full Code (Latest Code Status on File) Date Activated Date Inactivated Comments 03/12/2024 7:24 AM 03/12/2024 1:24 PM
[2025-05-26 21:26] LABS: Alanine Aminotransferase 29 U/L (0-33); Albumin Level 4.4 g/dL (3.5-5.2); Alkaline Phosphatase 104 U/L (35-105); Anion Gap 22.1 (5-19); Aspartate Amino Transferase 21 U/L (0-32); Blood Urea Nitrogen 26 mg/dL (6-20); Calcium 9.6 mg/dL (8.5-10.5); Carbon Dioxide 24 mmol/L (22-29); Chloride 96 mmol/L (98-107); Creatinine Clr Calc Pharmacy 67.2462; Globulin 3.6 g/dL (1.3-4.6); Glucose 146 mg/dL (65-115); Osmolality Calculated 295 mOsm/kg (285-295); Potassium 3.1 mmol/L (3.5-5.1); Sodium 139 mmol/L (136-145); Thyroid Stimulating Hormone 1.23 uIU/mL (0.27-4.20); Total Protein 8.0 g/dL (6.6-8.7)
[2025-05-26 21:27] LABS: Acetaminophen < 5.0 ug/mL (10-30); Alcohol Level < 10 mg/dL (0-10); Salicylate < 0.3 mg/dL (3-10)
[2025-05-26 21:37] LABS: Glucose Urine UA Negative (Normal); Nitrate Urine Negative (Negative); Specific Gravity, Urine 1.005 (1.005-1.030)
[2025-05-26 21:42] LABS: Add Urine Microscopic? YES
[2025-05-26 21:44] LABS: PCP Screen Urine Negative (Negative)
--- NOTE | 2025-05-26 22:22 | PC.NURSE ---
pt requesting sandwichDr. Meghana.
--- NOTE | 2025-05-26 22:36 | PC.NURSE ---
[facility] Pt served with copy of 96 [facility] by this RN and security. Pt A&Ox3, sitting up eating a sandwich.
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
[2025-05-26] MEDS: pantoprazole 40 mg SDV IVP (23:29)
[2025-05-26] MEDS: heparin 5,000 unit/mL INJ 1 mL 5000 UNIT SUBCUT (23:29)
[2025-05-27] VITALS (54 sets, daily range): BP systolic 80–188; BP diastolic 46–124; PULSE 14–105; RESP 12–72; TEMP 36.7–36.9; O2SAT 86–99
--- NOTE | 2025-05-27 | PC.NURSE ---
Addendum entered by Natalie Champion RN 05/27/25 02:22: Dr. Reyes also notified of patient's migraine. Patient states she has chronic migraines and no medication has helped recently, even during her recent ER visit multiple medications did not relieve pain. No new orders received. Original Note: Nicotine/SI Patient denies any suicidal intentions or thoughts. She states, I regret what I did. I want to live and see my in [place]. Patient states she does not want to harm herself, she was just anxious after arguing with her daughter. Additionally, patient states she smokes 1-2 packs cigarettes per day recently and requests a nicotine patch. Dr. Reyes notified; order received for a 21 mg nicotine patch daily.
--- NOTE | 2025-05-27 01:56 | PC.NURSE ---
Home Medications Patient requesting a total of 6 mg requip for restless legs as well as 150 mg bupropion XL and 20 mg escitalopram home doses. Patient states she takes all home medications at bedtime and she has not had them since Sunday. 2 mg requip administered per NOV previously. Dr. Reyes contacted; orders received to start back her 150 mg bupropion XL PO bedtime dose scheduled, her 20 mg escitalopram PO bedtime dose scheduled, and administer 4 mg requip Po once for a total of 6 mg administered.
--- NOTE | 2025-05-27 03:12 | PC.NURSE ---
Breathing Treatment Patient requesting breathing treatment. Expiratory wheezes auscultated. Dr. Reyes contacted and order received for duoneb Q4H PRN.
[2025-05-27 04:35] LABS: Hematocrit 42.7 % (36-47); Hemoglobin 13.80 g/dL (11.27-16.99); Mean Corpuscular HGB Conc 32.3 g/dL (30-55); Mean Corpuscular Hemoglobin 30.1 pg (27-33); Mean Corpuscular Volume 93.0 fl (85-98); Nucleated Red Blood Cells % 0 %; Platelet Count 264 10^3/cmm (157-399); Red Blood Count 4.59 10^6/uL (3.85-5.65); White Blood Count 12.11 10^3/uL (3.29-11.43)
[2025-05-27 04:56] LABS: Alanine Aminotransferase 25 U/L (0-33); Albumin Level 3.9 g/dL (3.5-5.2); Alkaline Phosphatase 93 U/L (35-105); Aspartate Amino Transferase 20 U/L (0-32); Blood Urea Nitrogen 26 mg/dL (6-20); Calcium 8.6 mg/dL (8.5-10.5); Carbon Dioxide 23 mmol/L (22-29); Chloride 103 mmol/L (98-107); Creatinine Clr Calc Pharmacy 71.7895; Globulin 3.0 g/dL (1.3-4.6); Glucose 132 mg/dL (65-115); Magnesium 2.1 mg/dL (1.7-2.3); Osmolality Calculated 303 mOsm/kg (285-295); Sodium 143 mmol/L (136-145); Total Protein 6.9 g/dL (6.6-8.7)
[2025-05-27 04:59] LABS: Anion Gap 20.4 (5-19); Potassium 3.4 mmol/L (3.5-5.1)
[2025-05-27 05:11] LABS: Slide Review Slide Review Perform
--- NOTE | 2025-05-27 06:40 | PC.NURSE ---
Poison Control Update Poison control contacted unit for update on patient; maintenance fluids and vital signs discussed. No further recommendations received.
--- NOTE | 2025-05-27 07:33 | PC.PHAR ---
Med rec not started by team, but finished all the missing information on pts' chart and added last fill dates and day supply.
--- NOTE | 2025-05-27 10:15 | PC.NURSE ---
Patients marcos Lerma called and spoke with patient. Patient becomes tearful and upset.
--- NOTE | 2025-05-27 10:59 | PC.NURSE ---
Card Sorter at bedside talking with patient.
[2025-05-27] MEDS: heparin 5,000 unit/mL INJ 1 mL 5000 UNIT SUBCUT (11:14)
--- NOTE | 2025-05-27 11:43 | W.PM.PSYCONS ---
Providers/Reason for Consult Consulting Physican/Specialty*: Shadi/Psychiatry Attending Physician: Jaime Oropeza MD Primary Care Provider: Dai Stark [facility] Home Medications and Allergies Home Medications ?Medication ?Instructions ?Recorded ?Confirmed ?Last Taken ?Type aspirin 81 mg tablet,delayed 81 mg PO DAILY 30 days #30 tabs 09/10/20 05/27/25 07/05/23 Rx release cyanocobalamin (vitamin B-12) 1,000 mcg IM Q30D 30 days #1 mL 09/10/20 05/27/25 02/01/22 Rx 1,000 mcg/mL injection solution amlodipine 5 mg tablet 5 mg PO BEDTIME 08/02/21 05/27/25 05/24/25 History nitroglycerin 0.4 mg sublingual 0.4 mg sublingual PRN PRN chest 08/05/21 05/27/25 Unknown History tablet pain budesonide-formoterol HFA 160 2 inh inhalation BID 07/06/23 05/27/25 07/05/23 History mcg-4.5 mcg/actuation aerosol inhaler (Symbicort) propranolol 10 mg tablet 10 mg PO BID 07/06/23 05/27/25 07/05/23 History albuterol sulfate 90 mcg/actuation 1 - 2 puff inhalation QID PRN 05/27/25 05/27/25 Unknown History aerosol inhaler (Ventolin HFA) Shortness Of Breath amitriptyline 10 mg tablet 10 mg PO BEDTIME 05/27/25 05/27/25 05/24/25 History bupropion HCl 150 mg 24 hr tablet, 150 mg PO BEDTIME 05/27/25 05/27/25 05/24/25 History extended release (Wellbutrin XL) escitalopram oxalate 20 mg tablet 20 mg PO DAILY 05/27/25 05/27/25 Unknown History fluticasone propionate 50 1 spray intranasal DAILY 05/27/25 05/27/25 05/24/25 History mcg/actuation nasal spray,suspension gabapentin 600 mg tablet 600 mg PO TID 05/27/25 05/27/25 Unknown History isosorbide mononitrate 60 mg 60 mg PO BEDTIME 05/27/25 05/27/25 05/24/25 History tablet,extended release 24 hr lisinopril 20 1 tab PO BEDTIME 05/27/25 05/27/25 05/26/25 18:00 History mg-hydrochlorothiazide 25 mg tablet loratadine 10 mg tablet 10 mg PO BEDTIME 05/27/25 05/27/25 05/24/25 History ondansetron HCl 4 mg tablet 4 mg PO Q6H PRN Nausea And Vomiting 05/27/25 05/27/25 Unknown History rizatriptan 10 mg tablet 10 mg PO DIRECTED 05/27/25 05/27/25 05/24/25 History ropinirole 3 mg tablet 3 mg PO BID 05/27/25 05/27/25 05/24/25 History tiotropium bromide 2.5 2 puff inhalation DAILY 05/27/25 05/27/25 05/24/25 History mcg/actuation mist for inhalation (Spiriva Respimat) tizanidine 2 mg tablet 2 mg PO BEDTIME 05/27/25 05/27/25 05/24/25 History tizanidine 4 mg tablet 4 mg PO BEDTIME 05/27/25 05/27/25 05/24/25 History Allergies Allergy/AdvReac Type Severity Reaction Status Date / Time codeine Allergy Severe ALGY-Anaphy Verified 02/20/24 10:33 laxis pseudoephedrine (From Allergy Intermediate ALGY-Hives Verified 02/20/24 10:33 Sudafed) pravastatin Allergy Unknown Verified 02/20/24 10:33 Qfnvucu-IBF-MkU Reductase Allergy Unknown Verified 02/20/24 10:33 Inhibitor (Rvutmir-Kud-Dpq Reductase Inhibitor) Opioids - Morphine Analogues AdvReac Intermediate ADR-Vomitin Verified 02/20/24 10:33 g Current Medications Current Medications Generic Name Dose Route Start Last Admin Trade Name Freq PRN Reason Stop Dose Admin Albuterol/Ipratropium 3 ml 05/27/25 02:38 05/27/25 03:09 Ipratropium-Albuterol 3 Ml Neb INHALATION 3 ml Q4H.RESPIRATORY PRN Administration SHORTNESS OF BREATH Bupropion HCl 150 mg 05/27/25 01:53 05/27/25 02:02 Bupropion Xl (24 Hr) 150 Mg Tablet PO 150 mg BEDTIME MILTON Administration Escitalopram Oxalate 20 mg 05/27/25 01:55 05/27/25 02:02 Escitalopram 10 Mg Tablet PO 20 mg BEDTIME MILTON Administration Heparin Sodium (Porcine) 5,000 unit 05/26/25 22:57 05/27/25 11:14 Heparin 5,000 Unit/Ml Inj 1 Ml SUBCUT 5,000 unit Q12H MILTON Administration Sodium Chloride 1,000 mls @ 75 mls/hr 05/26/25 22:57 05/27/25 07:17 Sodium Chloride 0.9% IV 75 mls/hr .[id number] MILTON Administration Nicotine 1 patch 05/26/25 23:55 05/27/25 08:52 Nicotine 21 Mg Patch TRANSDERMA 1 patch DAILY MILTON Administration Pantoprazole Sodium 40 mg 05/26/25 22:57 05/26/25 23:29 Pantoprazole 40 Mg Sdv IVP 40 mg Q24H [place]TON Administration Ropinirole HCl 2 mg 05/27/25 00:40 05/27/25 00:52 Ropinirole 1 Mg Tablet PO 2 mg BEDTIME MILTON Administration PFSH NPU PFSH: Medical History Bipolar 1 disorder Asthma PTSD (post-traumatic stress disorder) Hypercholesterolemia COPD (chronic obstructive pulmonary disease) Benign essential hypertension Adjustment disorder with depressed mood Spinal stenosis of lumbar region with radiculopathy Spondylolisthesis, lumbar region Morbid obesity with BMI of 45.0-49.9, adult Lumbar stenosis with neurogenic claudication Synovial cyst of lumbar spine Surgical History Status post colonoscopy (08/08/21) H/O local excision of skin lesion (08/08/21) History of lumbar laminectomy for spinal cord decompression Hx of spinal fusion History of cholecystectomy History of tubal ligation Family History Mother Diabetes Father Diabetes Denies family history of Dementia Cancer Social History Smoking and tobacco/nicotine status: former use of tobacco/nicotine Quit status (tobacco/nicotine): has tried quititng Number of times tried to quit tobacco: 11 Second hand smoke exposure: Yes Alcohol intake: never Substance/Drug Use: current Substance/Drug use frequency: daily Housing: House service: No Current occupational status: employed 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 Vitals/I&O/Wt Last Vital Signs Temp 98.5 F 05/27/25 08:00 Pulse 105 H 05/27/25 10:30 Resp 21 H 05/27/25 10:30 BP 168/102 05/27/25 10:30 Pulse Ox 96 05/27/25 10:30 O2 Del Method Room Air 05/27/25 10:00 05/26/25 05/27/25 05/27/25 22:59 06:59 14:59 Intake Total 1136 / 1136 500 / 500 Output Total 735 / 735 400 / 400 Balance 401 / 401 100 / 100 Weight last 48 hrs Weight 113.852 kg Weight 113.58 kg Weight 117.934 kg Data NPU 05/27/25 03:47 05/27/25 03:47 A&P PDMP PDMP Reviewed: Not Reviewed Involuntary Hold Information 96 Hour Hold: 96 Hour Involuntary Admission: No Coding Level of Care Code Acute Code for Alfredo Al
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
--- NOTE | 2025-05-27 15:30 | PC.NURSE ---
Report called to nurse on NPU.
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
[2025-05-28] VITALS (7 sets, daily range): BP systolic 106–156; BP diastolic 70–82; PULSE 68–86; RESP 16–18; TEMP 36.6–37.4; O2SAT 94–99
[2025-05-28] MEDS: fluticasone nasal spray 16gm Btl 1 SPRAY INTRANASAL (08:15)
[2025-05-28 08:38] LABS: Magnesium 1.8 mg/dL (1.7-2.3)
[2025-05-28 09:02] LABS: Anion Gap 17.7 (5-19); Blood Urea Nitrogen 18 mg/dL (6-20); Calcium 8.6 mg/dL (8.5-10.5); Carbon Dioxide 23 mmol/L (22-29); Chloride 104 mmol/L (98-107); Creatinine Clr Calc Pharmacy 71.8875; Glucose 159 mg/dL (65-115); Osmolality Calculated 297 mOsm/kg (285-295); Potassium 3.7 mmol/L (3.5-5.1); Sodium 141 mmol/L (136-145)
--- NOTE | 2025-05-28 11:18 | P.PN_ITS ---
Subjective 2 Subjective: 54-year-old female has been ad mitted with lisinopril overdose but vital signs were stable and she was transferred to Neuropsych Unit yesterday. This morning blood pressure high not low and renal function was done which is almost normal. Patient is complaining of 7/10 headache. She states that she recently was trying to wean herself off of gabapentin because she has been on it for years and does not want to be on it. She also wants to be off propranolol. I discussed with her that these medications are migraine preventative and that her migraines may be worsening because of that. She states that at home she takes naproxen with relief of her headache and when that does not work she takes rizatriptan. She states narcotics make her nauseous but the least offensive one is Dilaudid. Vitals/I&O/Wt Last Vital Signs Temp 97.8 F 05/28/25 04:35 Pulse 80 05/28/25 08:14 Resp 18 05/28/25 08:00 BP 156/82 05/28/25 04:35 Pulse Ox 96 05/28/25 08:00 O2 Del Method Room Air 05/28/25 08:00 05/27/25 05/28/25 05/28/25 22:59 06:59 14:59 Intake Total 1575 / 3475 Output Total 600 / 1600 Balance 975 / 1875 Weight last 48 hrs Weight 113.852 kg Weight 113.58 kg Weight 117.934 kg Physical Exam 2 Narrative: General well-developed well-nourished morbidly obese female in no acute cardiopulmonary stress CV regular rate and rhythm Lungs clear to auscultation bilaterally Abdomen positive bowel tones soft nontender Calves trace ankle edema Mentation alert and oriented x 3 anxious pleasant cooperative Data 05/27/25 03:47 05/28/25 08:11 A&P Assessment and plan 1. Suicidal ideation: Patient states she took an overdose to try and kill her self but then regretted that action called 911. Patient states that she was frustrated with headache and criticism from her daughter. 2. Drug overdose: Patient took 45 x 20/25 lisinopril/HCTZ tablets but blood pressure has been stable as has been renal function. She will be released to go to the psych unit at this time. Blood pressure and kidney function have been stable. Effect of this medication overdose appears to wore off without permanent injury or only mild increase of creatinine 3. Headache: Patient was seen on 05/25/2025 in the emergency department had negative CT of the head. If this persists could consider MRI to look for possibility of aneurysm but with patient's headache improving that is less likely and not acutely concerning at this time As the patient has been weaning off gabapentin that has worsened her headache stop gabapentin start Lyrica 50 mg twice daily. Patient has a polypharmacy with her psychiatric medications. We resumed many of those on transfer out of the ICU to Neuropsych Unit. 4. Migraine: History of migraines and recently patient was stopping her preventative medications because they were prescribed for mental health and she was making changes there but gabapentin and propranolol are migraine suppressive. will give naproxen for migraine tx. will start riboflavin, start lyrica stop gabapentin and resume propanolol. PDMP PDMP Reviewed: Not Reviewed Attestations 2 Medical Necessity Statement*: Patient remains in the hospital for treatment of her migraine and acute suicidal behavior decompensated anxiety and depression and expected to require greater than 2 midnight Coding Level of Care Code 27842 Diagnoses Suicidal ideation R45.851 Drug overdose T50.902A Encounter type: initial encounter Injury intent: intentional self-harm Headache R51.9 Migraine G43.101 Intractability: not intractable Migraine type: migraine (< 15 days per month) with aura Status migrainosus presence: with status migrainosus Time Spent (min) 35
--- NOTE | 2025-05-28 14:10 | W.PM.NPUPNS ---
Subjective NPU Subjective: 54-year-old female with a history of bipolar disorder not otherwise specified admitted after overdosing on multiple medications with suicidal intent. Patient had reported that her current plan was to move to [place] and get away from her sister. She had endorsed a clear history of hypomanic episodes in the past if not full manic episodes but reported no current mood stabilizer in her medication regimen. She had reported a previous trial on lithium. The patient reported that she continued to have problems with managing periods of depression but stated that for the most part her depression had been under control for the past few years except for the last 3 months when her moved to her daughter's property had led to increased depression. The patient had been isolative on the milieu. She had reported that her foot was hurting and was concerned that she had broken her toes. Mental Status Exam MSE Comments: The patient is a pleasant and cooperative female who appeared her stated age with fair hygiene lying in bed in mild to moderate distress. There was no evidence of any abnormal involuntary motor movements, tics, or tremors appreciated. Her speech was normal in regards to rate, rhythm, and prosody. Her mood was described as depressed. Her affect was restricted in range and mood congruent. Her thought process was linear, logical, and goal-directed. Her thought content revealed suicidal ideation having overdosed. She denied any homicidal ideation. She did not appear to be responding to internal stimuli. There was no evidence of delusional thinking. She was alert and oriented to person, place, time, and situation. Her recent and remote memory were grossly intact. Her attention span appeared fair. Her insight was limited. Her judgment was poor. Her impulse control appeared guarded. Vitals/I&O/Wt Last Vital Signs Temp 97.8 F 05/28/25 04:35 Pulse 80 05/28/25 08:14 Resp 18 05/28/25 08:00 BP 156/82 05/28/25 04:35 Pulse Ox 96 05/28/25 08:00 O2 Del Method Room Air 05/28/25 08:00 05/27/25 05/28/25 05/28/25 22:59 06:59 14:59 Intake Total 1575 / 3475 Output Total 600 / 1600 Balance 975 / 1875 Weight last 48 hrs Weight 113.852 kg Weight 113.58 kg Weight 117.934 kg Data NPU 05/27/25 03:47 05/28/25 08:11 A&P Assessment and plan 1. Bipolar depression: 2. Suicidal ideation: Plan: 54-year-old female admitted after endorsing worsening depression over the last 3 months with a significant overdose on medications with suicidal intent. She does report a history of manic symptoms and history of trials on mood stabilizers although interestingly she does not appear to be on any mood stabilizers at this time. #1.? Engage patient in individual milieu and group therapy. #2?? Recommend sober living treatment at the highest level of care to which the patient is willing to commit #3??? Restart outpatient medications. Seroquel xr 50mg at night to target bipolar depression. ? #4?? TO-15 minute checks? #5?? Will attempt to gather collateral information PDMP PDMP Reviewed: Not Reviewed Involuntary Hold Information Hold Status: Legal Status: 96 Hour Hold Date/Time Hold Expires: 06/01/25@2143 96 Hour Hold: 96 Hour Involuntary Admission: No Attestations NPU Medical Necessity Statement*: Inpatient hospitalization is medically necessary and the clinically improved intervention at this time. We will monitor medications and make changes as indicated. Her likely length of stay 3-5 days. Coding Level of Care Code Acute Code for Chg Fwd Diagnoses Bipolar depression F31.9 Suicidal ideation R45.851
--- NOTE | 2025-05-28 14:45 | XR_ITS ---
WS: [id number] Exam: XR foot RT 2V [id number] Date/Time of Exam: 05/28/2025 3:00 PM Reason For Exam: Pt states she believes she broke the side of her foot/toes No obvious fracture however the patient has a sock on the foot which obscures some bone detail. The joints are preserved. Plantar heel spur. XR/XR foot RT 2V [id number] IMPRESSION: 1. No obvious fracture.
[2025-05-28] MEDS: quetiapine XR (24HR) 50 mg Tablet PO (18:05)
[2025-05-29 06:00] VITALS: BP 137/81; PULSE 63; RESP 19; TEMP 36.7; O2SAT 97
[2025-05-29 07:15] VITALS: PULSE 54; RESP 18; O2SAT 96
[2025-05-29 07:38] LABS: Magnesium 1.9 mg/dL (1.7-2.3)
[2025-05-29] MEDS: fluticasone nasal spray 16gm Btl 1 SPRAY INTRANASAL (13:23)
[2025-05-29 13:52] VITALS: BP 117/77; PULSE 60; RESP 16; TEMP 36.7; O2SAT 96
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
[2025-05-29 16:20] LABS: Uric Acid 6.7 mg/dL (2.4-5.7)
--- NOTE | 2025-05-29 16:34 | W.PM.NPUPNS ---
Subjective NPU Subjective: 54-year-old female with a history of bipolar disorder not otherwise specified admitted after overdosing on multiple medications with suicidal intent. The patient had continued to report some depression. She had reported that she felt like she was getting a cough. The patient continued to report depression but stated that she was no longer feeling suicidal. She had endorsed a history of racing thoughts and periods of excessive spending followed by periods of intense depression lasting for months. She had reported no side effects from her Seroquel at this time. She denied any feelings of hopelessness. She had continued to remain isolative on the milieu. She continued to complain of foot pain although the x-ray appeared to be negative. She had not complained of any headaches recently. Mental Status Exam MSE Comments: The patient is a pleasant and cooperative female who appeared her stated age with fair hygiene lying in bed in mild to moderate distress. There was no evidence of any abnormal involuntary motor movements, tics, or tremors appreciated. Her speech was normal in regards to rate, rhythm, and prosody. Her mood was described as depressed. Her affect was restricted in range and mood congruent. Her thought process was linear, logical, and goal-directed. Her thought content revealed suicidal ideation having overdosed. She denied any homicidal ideation. She did not appear to be responding to internal stimuli. There was no evidence of delusional thinking. She was alert and oriented to person, place, time, and situation. Her recent and remote memory were grossly intact. Her attention span appeared fair. Her insight was limited. Her judgment was poor. Her impulse control remained guarded. Vitals/I&O/Wt Last Vital Signs Temp 98.1 F 05/29/25 13:52 Pulse 60 05/29/25 13:52 Resp 16 05/29/25 13:52 BP 117/77 05/29/25 13:52 Pulse Ox 96 05/29/25 13:52 O2 Del Method Room Air 05/29/25 13:52 Data NPU 05/27/25 03:47 05/28/25 08:11 A&P Assessment and plan 1. Bipolar depression: 2. Suicidal ideation: Plan: 54-year-old female admitted after endorsing worsening depression over the last 3 months with a significant overdose on medications with suicidal intent. She does report a history of manic symptoms and history of trials on mood stabilizers although interestingly she does not appear to be on any mood stabilizers at this time. #1.? Engage patient in individual milieu and group therapy. #2?? Recommend sober living treatment at the highest level of care to which the patient is willing to commit #3??? Restart outpatient medications. Increase Seroquel xr 100mg at 1900 to target bipolar depression. ? #4?? TO-15 minute checks? #5?? Will attempt to gather collateral information PDMP PDMP Reviewed: Not Reviewed Involuntary Hold Information Hold Status: Legal Status: 96 Hour Hold Date/Time Hold Expires: 06/01/25@2143 96 Hour Hold: 96 Hour Involuntary Admission: No Attestations NPU Medical Necessity Statement*: Inpatient hospitalization is medically necessary and the clinically improved intervention at this time. We will monitor medications and make changes as indicated. Her likely length of stay 3-4days. Coding Level of Care Code Acute Code for [facility] Fwd Diagnoses Bipolar depression F31.9 Suicidal ideation R45.851
[2025-05-29 20:00] VITALS: PULSE 62; RESP 18; O2SAT 97
[2025-05-29 20:18] VITALS: BP 112/63; PULSE 67; RESP 19; TEMP 37; O2SAT 97
[2025-05-29] MEDS: quetiapine XR (24HR) 50 mg Tablet 100 MG PO (20:26)
[2025-05-29 20:28] VITALS: PULSE 66; O2SAT 98
[2025-05-30 06:00] VITALS: BP 101/57; PULSE 75; RESP 18; TEMP 36.7; O2SAT 97
[2025-05-30 07:38] VITALS: PULSE 61; RESP 18; O2SAT 97
[2025-05-30] MEDS: fluticasone nasal spray 16gm Btl 1 SPRAY INTRANASAL (08:13)
--- NOTE | 2025-05-30 11:49 | P.NPUPN_ITS ---
Subjective NPU 2 Subjective: 54-year-old female with a history of bip olar disorder not otherwise specified admitted after overdosing on multiple medications with suicidal intent. She continued to report some sadness and concerned about returning home stating that her daughter would try to use her grandchildren against her to get her to stay. She had endorsed some feelings of hopelessness. She had reported that she was still in pain with her toes but stated that she had been diagnosed with gout and was now on medication. She denied any current manic symptoms. She reports that she has been feeling a bit more groggy and reported that it was likely her trazodone. She had reported some improved ability to fall asleep and stay asleep at night. She had been less isolative on the milieu. \ She had not complained of any headaches today. Mental Status Exam 2 MSE Comments: The patient is a pleasant and cooperative female who appeared her stated age with fair hygiene lying in bed in mild to moderate distress. There was no evidence of any abnormal involuntary motor movements, tics, or tremors appreciated. Her speech was normal in regards to rate, rhythm, and prosody. Her mood was described as depressed. Her affect was tearful at times today. Her thought process was linear, logical, and goal-directed. Her thought content revealed suicidal ideation having overdosed. She denied any homicidal ideation. She did not appear to be responding to internal stimuli. There was no evidence of delusional thinking. She was alert and oriented to person, place, time, and situation. Her recent and remote memory were grossly intact. Her attention span appeared fair. Her insight was limited. Her judgment was poor. Her impulse control remained guarded. Vitals/I&O/Wt Last Vital Signs Temp 98.0 F 05/30/25 06:00 Pulse 61 05/30/25 07:38 Resp 18 05/30/25 07:38 BP 101/57 05/30/25 06:00 Pulse Ox 97 05/30/25 07:38 O2 Del Method Room Air 05/30/25 07:38 Data NPU 05/27/25 03:47 05/28/25 08:11 A&P Assessment and plan 1. Bipolar depression: 2. Suicidal ideation: Plan: 54-year-old female admitted after endorsing worsening depression over the last 3 months with a significant overdose on medications with suicidal intent. She does report a history of manic symptoms and history of trials on mood stabilizers although interestingly she does not appear to be on any mood stabilizers at this time. #1.? Engage patient in individual milieu and group therapy. #2?? Recommend sober living treatment at the highest level of care to which the patient is willing to commit #3??? Restart outpatient medications. Continue Seroquel xr 100mg at 1900 to target bipolar depression with plan for continued titration. Hold trazodone prn tonight. #4?? TO-15 minute checks? #5?? Will attempt to gather collateral information. Patient now on colchicine for gout. PDMP PDMP Reviewed: Not Reviewed Involuntary Hold Information 2 Hold Status: Legal Status: 96 Hour Hold Date/Time Hold Expires: @2143 96 Hour Hold: 96 Hour Involuntary Admission: No Attestations NPU 2 Medical Necessity Statement*: Inpatient hospitalization is medically necessary and the clinically improved intervention at this time. We will monitor medications and make changes as indicated. Her likely length of stay 3-4days. Coding Level of Care Code Acute Code for [facility] Fwd Diagnoses Bipolar depression F31.9 Suicidal ideation R45.851
[2025-05-30 14:00] VITALS: BP 102/52; PULSE 61; RESP 16; TEMP 36.5; O2SAT 96
--- NOTE | 2025-05-30 18:47 | PC.NURSE ---
per phone call from Fiordaliza in NPU, Dr Oropeza would like a injection of 4mg of dexamethasone and 2% lidocaine for this patient. 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 [employer] had trouble entering the order as inpatient pharmacy is gone and this nurse did not know what was or was not available in the xis.
--- NOTE | 2025-05-30 19:33 | P.PN_ITS ---
Subjective 2 Subjective: 54-year-old female with a with history o f suicide overdose started on treatment for gout states her toe feels little bit better. She continues to have headache though sumatriptan last night reduced her headache from 8 down to a 2 or 3 and then its recurred now throbbing comes from the back of her skull where the joints and neck. Vitals/I&O/Wt Last Vital Signs Temp 97.7 F 05/30/25 14:00 Pulse 61 05/30/25 14:00 Resp 16 05/30/25 14:00 BP 102/52 05/30/25 14:00 Pulse Ox 96 05/30/25 14:00 O2 Del Method Room Air 05/30/25 14:00 Physical Exam 2 Narrative: General well-developed well-nourished morbidly obese female in no acute cardiopulmonary stress CV regular rate and rhythm Lungs clear to auscultation bilaterally Abdomen positive bowel tones soft nontender Calves trace ankle edema Mentation alert and oriented x 3 anxious pleasant cooperative Patient not tender over the forehead and confucianist but is tender in the occiput. She winces at touch. She states this causes pain to radiate up over his scalp Data 05/27/25 03:47 05/28/25 08:11 A&P Assessment and plan 1. Suicidal ideation: Patient states she took an overdose to try and kill her self but then regretted that action called 911. Patient states that she was frustrated with headache and criticism from her daughter. 2. Drug overdose: Patient took 45 x 20/25 lisinopril/HCTZ tablets but blood pressure has been stable as has been renal function. She will be released to go to the psych unit at this time. Blood pressure and kidney function have been stable. Effect of this medication overdose appears to wore off without permanent injury or only mild increase of creatinine 3. Headache: Patient was seen on 05/25/2025 in the emergency department had negative CT of the head. If this persists could consider MRI to look for possibility of aneurysm but with patient's headache improving that is less likely and not acutely concerning at this time As the patient has been weaning off gabapentin that has worsened her headache stop gabapentin start Lyrica 50 mg twice daily. Patient has a polypharmacy with her psychiatric medications. We resumed many of those on transfer out of the ICU to Neuropsych Unit. I am going to obtain sed rate and C-reactive protein if significantly elevated will consider the diagnosis of giant cell arteritis. Patient has not however had fevers start naproxen 500 mg twice a day and also give a dose of rizatriptan. If patient's pain is not going away will Patient has occipital neuralgia and we discussed injection which she would like to try 4. Migraine: History of migraines and recently patient was stopping her preventative medications because they were prescribed for mental health and she was making changes there but gabapentin and propranolol are migraine suppressive. will give naproxen for migraine tx. will start riboflavin, start lyrica stop gabapentin and resume propanolol. As above with some change in her headache features now with blurry vision As above will inject for occipital neuralgia PDMP PDMP Reviewed: Not Reviewed Attestations 2 Medical Necessity Statement*: Patient remains hospitalized for suicidal ideation treatment Coding Level of Care Code 53185 Diagnoses Suicidal ideation R45.851 Drug overdose T50.902A Encounter type: initial encounter Injury intent: intentional self-harm Headache R51.9 Migraine G43.101 Intractability: not intractable Migraine type: migraine (< 15 days per month) with aura Status migrainosus presence: with status migrainosus Time Spent (min) 25
[2025-05-30] MEDS: lidocaine 2% INJ 20 mL INJECTION (19:34)
--- NOTE | 2025-05-30 20:08 | P.PCN_ITS ---
Procedure/Consent Time out: Time Out Performed: Yes (With patient and Brenna present) Consent: Additional Consent Information: Written and signed occipital nerve block Benefit block the occipital nerve decrease migraine headache Risk of bleeding nerve injury infection lack of success Procedure Narrative: Patient was informed of the risk benefits and elected to proceed. I cathy up 2- 1/2 cc of 2% lidocaine no epi and 4 mg of Decadron totaling 3 cc She was seated. Occipital prominence found and inferolateral to this approximately 2 cm was area of point tenderness. This was prepped with ChloraPrep. Inserting 22-gauge needle to the bone I withdrew a few millimeters, aspiration returned no blood. I instilled 2 cc. 5 cm lateral to the occipital prominence and 1 cm inferior palpated another area of tenderness consistent with the lesser occipital nerve branch and this was instilled with half cc. The 2 areas became numb. Along the base the neck this area also tender consistent with the origin of the occipital nerve and I instilled half cc there. Palpation of the left temporal area which had been tender no longer painful. Patient reports her pain level which was 7/10 is now 4/10. No complications Medication lidocaine 2% 2-1/2 cc Dexamethasone 4 mg Acute Procedures Epistaxis Control: Time out performed: Yes (With patient and Brenna present)
[2025-05-30 20:20] VITALS: BP 129/78; PULSE 65; RESP 19; TEMP 36.7; O2SAT 95
[2025-05-30] MEDS: quetiapine XR (24HR) 50 mg Tablet 100 MG PO (20:47)
[2025-05-31 05:55] VITALS: BMI 43.3
[2025-05-31 06:00] VITALS: BP 146/78; PULSE 68; RESP 19; TEMP 36.6; O2SAT 96
[2025-05-31 08:00] VITALS: PULSE 79; RESP 18; O2SAT 98
[2025-05-31] MEDS: fluticasone nasal spray 16gm Btl 1 SPRAY INTRANASAL (08:07)
--- NOTE | 2025-05-31 11:45 | P.NPUPN_ITS ---
Subjective NPU 2 Subjective: 54-year-old female with a history of bip olar disorder not otherwise specified admitted after overdosing on multiple medications with suicidal intent. The patient had denied any suicidal ideation currently. She endorsed having difficulties falling asleep with the absence of trazodone and reported that Seroquel XR had not been helpful for her sleep. She had reported continued cycling of her mood outside of the hospital. She had not been reporting feeling excessively groggy today. She had reported pain in her toes but remained compliant with her medication for treating gout. She had reported no headaches yesterday after she had had a cervical block. The patient was compliant but somewhat isolative on the milieu. She did continue to report depressed mood and reported anxiety about having to deal with her daughter as she states that she wanted to return back to [place] to be with her . Mental Status Exam 2 MSE Comments: The patient is a pleasant and cooperative female who appeared her stated age with fair hygiene lying in bed in mild to moderate distress expressing pain in her toes. There was no evidence of any abnormal involuntary motor movements, tics, or tremors appreciated. Her speech was normal in regards to rate, rhythm, and prosody. Her mood was described as depressed. Her affect was tearful at times today. Her thought process was linear, logical, and goal-directed. Her thought content revealed suicidal ideation having overdosed. She denied any homicidal ideation. She did not appear to be responding to internal stimuli. There was no evidence of delusional thinking. She was alert and oriented to person, place, time, and situation. Her recent and remote memory were grossly intact. Her attention span appeared fair. Her insight was limited. Her judgment was poor. Her impulse control remained guarded. Vitals/I&O/Wt Last Vital Signs Temp 97.9 F 05/31/25 06:00 Pulse 79 05/31/25 08:00 Resp 18 05/31/25 08:00 BP 146/78 05/31/25 06:00 Pulse Ox 98 05/31/25 08:00 O2 Del Method Room Air 05/31/25 08:00 Weight last 48 hrs Weight 118.161 kg Data NPU 05/27/25 03:47 05/28/25 08:11 A&P Assessment and plan 1. Bipolar depression: 2. Suicidal ideation: Plan: 54-year-old female admitted after endorsing worsening depression over the last 3 months with a significant overdose on medications with suicidal intent. She does report a history of manic symptoms and history of trials on mood stabilizers although interestingly she does not appear to be on any mood stabilizers at this time. #1.? Engage patient in individual milieu and group therapy. #2?? Recommend sober living treatment at the highest level of care to which the patient is willing to commit #3??? Restart outpatient medications. Switch to Seroquel IR 150mg at night. #4?? TO-15 minute checks? #5?? Will attempt to gather collateral information. Patient now on colchicine for gout. PDMP PDMP Reviewed: Not Reviewed Involuntary Hold Information 2 Hold Status: Legal Status: 96 Hour Hold Date/Time Hold Expires: @2143 96 Hour Hold: 96 Hour Involuntary Admission: No Attestations NPU 2 Medical Necessity Statement*: Inpatient hospitalization is medically necessary and the clinically improved intervention at this time. We will monitor medications and make changes as indicated. Her likely length of stay 1-2 days. Coding Level of Care Code Acute Code for [facility] Fwd Diagnoses Bipolar depression F31.9 Suicidal ideation R45.851
[2025-05-31 13:48] VITALS: BP 137/80; PULSE 98; RESP 16; TEMP 36.7; O2SAT 35
[2025-05-31 13:54] VITALS: PULSE 83; RESP 18; O2SAT 96
--- NOTE | 2025-05-31 15:45 | PM.PN ---
Subjective Subjective: 54-year-old female with a history of bipolar disorder who came in with suicide overdose had severe migraine. I did left occipital nerve block for the greater and lesser occipital nerve branches it went from 7 over 10-12/11 immediately and then she states that 15 minutes later she had no headache at all and has not had another headache since that time. She states she feels great Patient is little sweaty but she states she has that from post shower typically and just showered. Patient reports insomnia thinking that the new medication doctor Hsu prescribed did not work but I discussed with her that it is possible it is related to dexamethasone 4 mg as part of the injection Vitals/I&O/Wt Last Vital Signs Temp 98.1 F 05/31/25 13:48 Pulse 83 05/31/25 13:54 Resp 18 05/31/25 13:54 BP 137/80 05/31/25 13:48 Pulse Ox 96 05/31/25 13:54 O2 Del Method Room Air 05/31/25 13:54 Weight last 48 hrs Weight 118.161 kg Physical Exam Narrative: General well-developed well-nourished morbidly obese female in no acute cardiopulmonary stress CV regular rate and rhythm Lungs clear to auscultation bilaterally Mentation alert and oriented x 3 minimally anxious, pleasant, cooperative Left occiput no longer tender no erythema or signs of infection Data 05/27/25 03:47 05/28/25 08:11 A&P Assessment and plan 1. Suicidal ideation: Patient states she took an overdose to try and kill her self but then regretted that action called 911. Patient states that she was frustrated with headache and criticism from her daughter. 2. Drug overdose: Patient took 45 x 20/25 lisinopril/HCTZ tablets but blood pressure has been stable as has been renal function. She will be released to go to the psych unit at this time. Blood pressure and kidney function have been stable. Effect of this medication overdose appears to wore off without permanent injury or only mild increase of creatinine 3. Headache: Patient was seen on 05/25/2025 in the emergency department had negative CT of the head. If this persists could consider MRI to look for possibility of aneurysm but with patient's headache improving that is less likely and not acutely concerning at this time As the patient has been weaning off gabapentin that has worsened her headache stop gabapentin start Lyrica 50 mg twice daily. Patient has a polypharmacy with her psychiatric medications. We resumed many of those on transfer out of the ICU to Neuropsych Unit. Sed rate and C-reactive protein were not elevated so giant cell arteritis or temporal arteritis thought to be unlikely. She had a full response and resolution of her headache completely 15 minutes after the injection yesterday with left greater and lesser occipital nerve branch block with 4 mg Decadron and 2.5 cc 2% lidocaine 4. Migraine: History of migraines and recently patient was stopping her preventative medications because they were prescribed for mental health and she was making changes there but gabapentin and propranolol are migraine suppressive. will give naproxen for migraine tx. will start riboflavin, start lyrica stop gabapentin and resume propanolol. As above with some change in her headache features now with blurry vision As above 5. Gout attack: Right fifth toe after bumped. Uric acid was 6.5 she was started on allopurinol 300 mg daily and ibuprofen. She is feeling better can wean down the allopurinol to 150 mg daily after pain resolves PDMP PDMP Reviewed: Not Reviewed Attestations Medical Necessity Statement*: Patient will remain on the Neuropsych Unit. Anticipate additional midnights as per the psychiatry service. I will sign off at this time Coding Level of Care Code Acute Code for [facility] Fwd Diagnoses Suicidal ideation R45.851 Drug overdose T50.902A Encounter type: initial encounter Injury intent: intentional self-harm Headache R51.9 Migraine G43.101 Intractability: not intractable Migraine type: migraine (< 15 days per month) with aura Status migrainosus presence: with status migrainosus Gout attack M10.9 Time Spent (min) 25
[2025-05-31 20:00] VITALS: PULSE 67; RESP 18; O2SAT 98
[2025-05-31 21:06] VITALS: BP 148/75; PULSE 70; RESP 17; TEMP 36.8; O2SAT 94
[2025-06-01 08:00] VITALS: PULSE 63; RESP 18; O2SAT 98
[2025-06-01] MEDS: fluticasone nasal spray 16gm Btl 1 SPRAY INTRANASAL (08:49)
[2025-06-01 14:00] VITALS: BP 139/75; PULSE 67; RESP 17; TEMP 36.6; O2SAT 95
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
[2025-06-01 14:57] VITALS: BP 139/75; PULSE 67; RESP 18; TEMP 36.6; O2SAT 95
[2025-06-01 15:36] VITALS: PULSE 83; RESP 18; O2SAT 95
== END 2025-06-01 16:22 | disposition short-term general hospital (02) | DRG 918 ==
LOC: ER 21:47 → ICU 22:37 → NP 05-27 15:43
PROVIDERS: Internal Medicine; Admitting Provider Internal Medicine; Emergency Provider Emergency Medicine; PCP Physician Assistant; Visit Provider Psychiatry & Neurology Psychiatry
DX: T46.4X2A Poisoning by angiotensin-converting-enzyme inhibitors, intentional self-harm, initial encounter (principal); Z68.41 Body mass index [BMI] 40.0-44.9, adult; F31.9 Bipolar disorder, unspecified; T50.2X2A Poisoning by carbonic-anhydrase inhibitors, benzothiadiazides and other diuretics, intentional self-harm, initial encounter; G43.909 Migraine, unspecified, not intractable, without status migrainosus; M10.9 Gout, unspecified; J44.89 Other specified chronic obstructive pulmonary disease; I10 Essential (primary) hypertension; F43.10 Post-traumatic stress disorder, unspecified; Z90.49 Acquired absence of other specified parts of digestive tract; Z98.1 Arthrodesis status; Z87.891 Personal history of nicotine dependence; Z79.82 Long term (current) use of aspirin; E87.6 Hypokalemia; E86.0 Dehydration; G25.81 Restless legs syndrome; Z62.810 Personal history of physical and sexual abuse in childhood; Z91.51 Personal history of suicidal behavior; I25.10 Atherosclerotic heart disease of native coronary artery without angina pectoris; E66.01 Morbid (severe) obesity due to excess calories; F41.9 Anxiety disorder, unspecified; X58.XXXA Exposure to other specified factors, initial encounter; M54.81 Occipital neuralgia
CPT/HCPCS: 36415; 71045; 73620; 80048; 80053; 80306; 80307; 81001; 83735; 84100; 84443; 84550; 85025; 85651; 86140; 93005; 94640; 96360; 96372; 97150; 97165; 99285; J1100; J1644; J2470; J3030; J7030; J7120; J7613; J7626; J9999